=== PATIENT | female | born 1960 | race Caucasian/White ===

== ENCOUNTER 2017-01-02 12:25 | Emergency (ER) | payer MEDICARE, MEDICAID ==
[~2017-01-02] VITALS: Ht 160 cm; Wt 75.6 kg
[~2017-01-02 12:25] MED LIST: OXYC10TA6 PO; TIZA2CAP PO; [UNRECOGNIZED DRUG - REMARK]
[2017-01-02] MEDS ORDERED: SODIUM CHLORIDE 0.9% 1,000 ML IV ONE (13:32)
[2017-01-02] MEDS ORDERED: PANTOPRAZOLE 40 MG IV IVPush ONE (14:00)
[2017-01-02] MEDS ORDERED: SODIUM CHLORIDE 0.9% 1,000ML IVBOLUS ONE (14:00)
[2017-01-02] MEDS ORDERED: HYDROmorphone 1 MG/ML, 1ML IVPush PRN (14:00)
[2017-01-02] MEDS ORDERED: ONDANSETRON 2MG/ML, 2ML IVPush ONE (14:00)
[2017-01-02] MEDS ORDERED: SODIUM CHLORIDE FLUSH 10ML SYR IVF ONE (14:00)
[2017-01-02 14:40] LABS: ASPARTATE AMINO TRANSFERASE 19 U/L (15-37); BLOOD UREA NITROGEN 18 mg/dL (7-18)
[2017-01-02] MEDS ORDERED: PANTOPRAZOLE 40 MG IV ONE (14:48)
[2017-01-02] MEDS ORDERED: HYDROmorphone 1 MG/ML, 1ML ONE (14:48)
[2017-01-02] MEDS ORDERED: ONDANSETRON 2MG/ML, 2ML ONE (14:49)
[2017-01-02 15:35] LABS: IS PT STATUS REG ER OR PRE ER? YES
[2017-01-02] MEDS ORDERED: MORPHINE SULFATE 4 MG/ML, 1ML IVPush ONE (16:00)
[2017-01-02] MEDS ORDERED: MORPHINE SULFATE 4 MG/ML, 1ML ONE (16:31)
[2017-01-02] MEDS ORDERED: ASPIRIN 81 MG TABLET CHEW ONE (16:31)
[2017-01-02 17:38] VITALS: BP 116/58
== END 2017-01-02 17:41 | disposition home or self-care (01) ==
LOC: ED 16:22
DX: M47.896 Other spondylosis, lumbar region (principal); M47.894 Other spondylosis, thoracic region; R11.2 Nausea with vomiting, unspecified; R10.84 Generalized abdominal pain; I10 Essential (primary) hypertension; K21.9 Gastro-esophageal reflux disease without esophagitis; Z88.0 Allergy status to penicillin; Z88.6 Allergy status to analgesic agent; Z98.51 Tubal ligation status
CPT/HCPCS: 36415; 72072; 72110; 74020; 80053; 81003; 84484; 85025; 85610; 93005; 96374; 96375; 99285; C9113; J1170; J2405; J7030

== ENCOUNTER 2017-02-26 16:06 | Inpatient (IN) | payer MEDICARE, MEDICAID ==
[~2017-02-26] VITALS: Ht 160 cm; Wt 77.8 kg
[2017-02-26] MEDS ORDERED: SODIUM CHLORIDE 0.9% 1,000ML IVBOLUS ONE (16:30)
[2017-02-26] MEDS ORDERED: ONDANSETRON 2MG/ML, 2ML IVPush ONE (16:30)
[2017-02-26] MEDS ORDERED: ONDANSETRON 2MG/ML, 2ML ONE (16:56)
[2017-02-26] MEDS ORDERED: MORPHINE SULFATE 4 MG/ML, 1ML ONE ×2 (16:56→18:15)
[2017-02-26 17:02] LABS: ASPARTATE AMINO TRANSFERASE 15 U/L (15-37); BLOOD UREA NITROGEN 9 mg/dL (7-18)
[2017-02-26] MEDS: MORPHINE SULFATE 4 MG/ML, 1ML IVPush PRN ×2 (17:02→18:18)
[2017-02-26] MEDS ORDERED: OMNIPAQUE 350 MG/ML, 100ML BOTTLE ONE (18:16)
[2017-02-26] MEDS ORDERED: LABETALOL 5MG/ML, 20ML IVPush STA (19:13)
[2017-02-26] MEDS ORDERED: LABETALOL 5MG/ML, 20ML ONE (19:22)
[2017-02-26 19:41] LABS: IS PT STATUS REG ER OR PRE ER? YES
[2017-02-26] MEDS ORDERED: SODIUM CHLORIDE 0.9% 1,000 ML IV ONE (20:02)
[2017-02-26] MEDS ORDERED: ONDANSETRON 2MG/ML, 2ML IVPush PRN (20:30)
[2017-02-26] MEDS ORDERED: MORPHINE SULFATE 4 MG/ML, 1ML IVPush PRN (20:30)
[2017-02-26] MEDS ORDERED: DILTIAZEM 125 MG in SODIUM CHLORIDE 0.9% 100 ML IV PRN (20:30)
[2017-02-26] MEDS ORDERED: ACETAMINOPHEN 325 MG TABLET PO PRN (21:00)
[2017-02-26] MEDS ORDERED: NITROGLYCERIN 0.4 MG/SPRAY SL PRN (21:00)
[2017-02-26] MEDS ORDERED: NITROGLYCERIN 0.4 MG BOTTLE (25 TABS) SL PRN (21:00)
[2017-02-26] MEDS ORDERED: PROMETHAZINE 25 MG/ML, 1ML IM PRN (21:00)
[2017-02-26 21:33] LABS: IS PT STATUS REG ER OR PRE ER? YES
[2017-02-26 22:27] VITALS: BP 144/99
[2017-02-26 23:58] LABS: DAU SCREEN DISCLAIMER
[2017-02-27 03:05] VITALS: BP 107/66
[2017-02-27] MEDS: ENOXAPARIN 80 MG/0.8 ML SQ SCH ×2 (03:13→14:50)
[2017-02-27 05:03] LABS: ASPARTATE AMINO TRANSFERASE 12 U/L (15-37); BLOOD UREA NITROGEN 7 mg/dL (7-18)
[2017-02-27 05:09] LABS: IS PT STATUS REG ER OR PRE ER? NO
[2017-02-27 08:10] VITALS: BP 128/83
[2017-02-27] MEDS ORDERED: LORazepam 2 MG/ML, 1ML IVPush ONE (08:30)
[2017-02-27] MEDS ORDERED: POTASSIUM CHLORIDE 20 MEQ TAB.ER.PRT PO ONE (08:30)
[2017-02-27] MEDS ORDERED: REGADENOSON 0.4 MG/5 ML SYRINGE ONE (08:33)
[2017-02-27] MEDS: DILTIAZEM 30 MG TABLET PO SCH ×3 (12:09→21:08)
[2017-02-27 14:59] VITALS: BP 121/77
[2017-02-27] MEDS: ONDANSETRON 2MG/ML, 2ML IVPush PRN (16:43)
[2017-02-27] MEDS: MAALOX/HYOSCYAMINE/LIDOCAINE 45 ML BOTTLE PO PRN ×2 (17:31→21:58)
[2017-02-27] MEDS: MORPHINE SULFATE 4 MG/ML, 1ML IVPush PRN ×2 (17:31→21:08)
[2017-02-27 18:40] VITALS: BP 107/67
[2017-02-28 00:46] VITALS: BP 111/68
[2017-02-28] MEDS: ENOXAPARIN 80 MG/0.8 ML SQ SCH (02:30)
[2017-02-28] MEDS: ONDANSETRON 2MG/ML, 2ML IVPush PRN ×2 (03:58→16:59)
[2017-02-28] MEDS: MORPHINE SULFATE 4 MG/ML, 1ML IVPush PRN ×4 (03:58→16:59)
[2017-02-28 05:49] LABS: BLOOD UREA NITROGEN 6 mg/dL (7-18)
[2017-02-28] MEDS: DILTIAZEM 30 MG TABLET PO SCH (06:25)
[2017-02-28 06:40] VITALS: BP 116/73
[2017-02-28] MEDS ORDERED: ENOXAPARIN 40 MG/0.4 ML SQ SCH (11:30)
[2017-02-28] MEDS: ASPIRIN 81 MG TABLET EC PO SCH (11:59)
[2017-02-28] MEDS: SUCRALFATE 1 GM/10 ML UDC PO SCH ×3 (11:59→20:11)
[2017-02-28] MEDS ORDERED: TRAZ50TA18 PO (12:33)
[2017-02-28] MEDS ORDERED: DULO30CA43 PO (12:33)
[2017-02-28] MEDS ORDERED: OMEP20TA2 PO (12:33)
[2017-02-28] MEDS ORDERED: TIZA4TAB PO (12:33)
[2017-02-28] MEDS ORDERED: TRAM50TA2 PO (12:33)
[2017-02-28] MEDS ORDERED: GABA-826 PO (12:33)
[2017-02-28] MEDS ORDERED: RANI150C BC (12:33)
[2017-02-28 13:20] VITALS: BP 129/70
[2017-02-28 20:57] VITALS: BP 116/72
[2017-03-01 01:57] VITALS: BP 117/73
[2017-03-01] MEDS: MORPHINE SULFATE 4 MG/ML, 1ML IVPush PRN ×2 (02:15→08:44)
[2017-03-01] MEDS: ASPIRIN 81 MG TABLET EC PO SCH (06:00)
[2017-03-01] MEDS: SUCRALFATE 1 GM/10 ML UDC PO SCH (08:43)
[2017-03-01 08:44] VITALS: BP 137/77
[2017-03-01] MEDS ORDERED: DILTIAZEM 120 MG CAP.ER.24H PO SCH (09:00)
[2017-03-01] MEDS ORDERED: SUCR1ORA2 PO (09:22)
[2017-03-01] MEDS ORDERED: ASPI-621 PO (09:22)
[2017-03-01] MEDS ORDERED: DILT120C9 PO (09:22)
== END 2017-03-01 11:30 | disposition home or self-care (01) | DRG 281 ==
LOC: ED 19:19 → EDIP 20:02 → SUATTDRO 20:13 → 5SO 21:48 → DCLOUNGE 03-01 10:58
PROVIDERS: ADMIT Internal Medicine; ATTEND Internal Medicine
DX: I48.0 Paroxysmal atrial fibrillation (principal); I21.4 Non-ST elevation (NSTEMI) myocardial infarction; D68.69 Other thrombophilia; K21.9 Gastro-esophageal reflux disease without esophagitis; I10 Essential (primary) hypertension; F32.9 Major depressive disorder, single episode, unspecified; G89.29 Other chronic pain; M25.519 Pain in unspecified shoulder; M54.9 Dorsalgia, unspecified; I25.10 Atherosclerotic heart disease of native coronary artery without angina pectoris; F07.81 Postconcussional syndrome; H00.016 Hordeolum externum left eye, unspecified eyelid; M19.90 Unspecified osteoarthritis, unspecified site; E87.6 Hypokalemia; F19.90 Other psychoactive substance use, unspecified, uncomplicated; W18.39XA Other fall on same level, initial encounter; Y93.89 Activity, other specified; Z87.11 Personal history of peptic ulcer disease; Z98.51 Tubal ligation status; Z88.0 Allergy status to penicillin; Z88.5 Allergy status to narcotic agent; Y92.89 Other specified places as the place of occurrence of the external cause; Y99.8 Other external cause status
CPT/HCPCS: 36415; 70450; 72125; 74177; 78452; 80048; 80053; 80061; 80307; 81003; 83690; 83735; 84436; 84443; 84484; 85014; 85018; 85025; 93005; 93017; 93306; 96361; 96374; 96375; 96376; J1650; J2405; J2785; Q9967; A9502; C9898; J2060; J7030

== ENCOUNTER 2017-03-08 14:40 | Inpatient (IN) | payer MEDICARE, MEDICAID ==
[2017-03-08] VITALS: BP 157/80
[~2017-03-08] VITALS: Ht 160 cm; Wt 76.1 kg
[~2017-03-08 14:40] MED LIST changes: +ASPI-621 PO; +DILT120C9 PO; +DULO30CA43 PO; +GABA-826 PO; +OMEP20TA2 PO; +RANI150C BC; +SUCR1ORA2 PO; +TIZA4TAB PO; +TRAM50TA2 PO; +TRAZ50TA18 PO
[2017-03-08] MEDS ORDERED: SODIUM CHLORIDE FLUSH 10ML SYR IVF ONE (15:00)
[2017-03-08] MEDS ORDERED: SODIUM CHLORIDE 0.9% 1,000ML IVBOLUS ONE (15:00)
[2017-03-08] MEDS ORDERED: FAMOTIDINE 20 MG/2 ML IVP ONE (15:00)
[2017-03-08] MEDS ORDERED: ONDANSETRON 2MG/ML, 2ML IVPush ONE (15:00)
[2017-03-08] MEDS ORDERED: PLEASE ENTER HEIGHT AND WEIGHT MC SCH (15:00)
[2017-03-08 15:27] LABS: BLOOD UREA NITROGEN 10 mg/dL (7-18)
[2017-03-08 15:28] LABS: ASPARTATE AMINO TRANSFERASE 14 U/L (15-37)
[2017-03-08 15:32] LABS: IS PT STATUS REG ER OR PRE ER? YES
[2017-03-08] MEDS ORDERED: FAMOTIDINE 20 MG/2 ML ONE (15:40)
[2017-03-08] MEDS ORDERED: ONDANSETRON 2MG/ML, 2ML ONE (15:40)
[2017-03-08] MEDS ORDERED: morphine SULFATE 10 MG/ML, 1ML IVPush ONE (16:00)
[2017-03-08] MEDS ORDERED: MORPHINE SULFATE 4 MG/ML, 1ML ONE (16:01)
[2017-03-08] MEDS ORDERED: ACETAMINOPHEN 325 MG TABLET PO PRN (18:00)
[2017-03-08] MEDS ORDERED: HYDROmorphone 2 MG/ML, 1ML ONE (18:07)
[2017-03-08] MEDS: HYDROmorphone 2 MG/ML, 1ML IVPush PRN ×2 (18:11→21:06)
[2017-03-08 20:15] VITALS: BP 137/80
[2017-03-08] MEDS: SODIUM CHLORIDE 0.9% 1,000 ML IV SCH (21:04)
[2017-03-09] MEDS: HYDROmorphone 2 MG/ML, 1ML IVPush PRN ×6 (00:07→21:07)
[2017-03-09 01:39] VITALS: BP 129/70
[2017-03-09 05:52] LABS: BLOOD UREA NITROGEN 9 mg/dL (7-18)
[2017-03-09 05:55] LABS: ASPARTATE AMINO TRANSFERASE 13 U/L (15-37)
[2017-03-09 07:09] VITALS: BP 144/77
[2017-03-09] MEDS: SODIUM CHLORIDE 0.9% 1,000 ML IV SCH (09:00)
[2017-03-09] MEDS: BISACODYL 10 MG SUPP PR SCH (12:16)
[2017-03-09 12:35] VITALS: BP 159/84
[2017-03-09] MEDS: POTASSIUM CHLORIDE 20 MEQ in LACTATED RINGERS 1,000 ML IV SCH ×2 (13:53→21:08)
[2017-03-09] MEDS: HEPARIN 5,000 UNITS/ML, 1ML SQ SCH (19:12)
[2017-03-09 20:06] VITALS: BP 157/80
[2017-03-10] MEDS: HEPARIN 5,000 UNITS/ML, 1ML SQ SCH ×2 (03:42→12:00)
[2017-03-10] MEDS: ONDANSETRON 2MG/ML, 2ML IVPush PRN ×2 (03:42→13:14)
[2017-03-10 03:47] VITALS: BP 143/72
[2017-03-10] MEDS: POTASSIUM CHLORIDE 20 MEQ in LACTATED RINGERS 1,000 ML IV SCH (07:18)
[2017-03-10 07:19] VITALS: BP 158/78
[2017-03-10] MEDS ORDERED: GABAPENTIN 300 MG CAPSULE PO SCH (09:00)
[2017-03-10] MEDS ORDERED: DULOXETINE 30 MG CAPSULE.DR PO SCH (09:00)
[2017-03-10] MEDS ORDERED: DILTIAZEM 120 MG CAP.ER.24H PO SCH (09:00)
[2017-03-10] MEDS: BISACODYL 10 MG SUPP PR SCH (09:00)
[2017-03-10] MEDS: TIZANIDINE 4MG TABLET PO SCH ×2 (10:17→15:47)
[2017-03-10] MEDS ORDERED: SUCRALFATE 1 GM/10 ML UDC PO SCH (11:00)
[2017-03-10 13:24] VITALS: BP 134/79
[2017-03-10] MEDS ORDERED: ONDA4TAB10 PO (15:03)
[2017-03-10] MEDS ORDERED: TRAZODONE 50MG TABLET PO SCH (21:00)
[2017-03-11] MEDS ORDERED: ASPIRIN 81 MG TABLET EC PO SCH (06:00)
== END 2017-03-10 16:50 | disposition home or self-care (01) | DRG 439 ==
LOC: MERGE 14:40 → ED 17:21 → EDIP 17:53 → 3NE 18:57
PROVIDERS: ADMIT Internal Medicine; ATTEND Internal Medicine
DX: K85.90 Acute pancreatitis without necrosis or infection, unspecified (principal); E44.1 Mild protein-calorie malnutrition; I10 Essential (primary) hypertension; G89.29 Other chronic pain; M54.9 Dorsalgia, unspecified; I48.91 Unspecified atrial fibrillation; K21.9 Gastro-esophageal reflux disease without esophagitis; F32.9 Major depressive disorder, single episode, unspecified; K59.00 Constipation, unspecified; Z76.5 Malingerer [conscious simulation]; Z87.11 Personal history of peptic ulcer disease; Z90.49 Acquired absence of other specified parts of digestive tract; Z98.51 Tubal ligation status; Z79.82 Long term (current) use of aspirin; Z79.899 Other long term (current) drug therapy; Z80.0 Family history of malignant neoplasm of digestive organs; Z88.5 Allergy status to narcotic agent; Z88.8 Allergy status to other drugs, medicaments and biological substances
CPT/HCPCS: 36415; 74022; 74176; 76700; 76830; 80053; 80061; 81003; 83690; 84484; 85025; 96361; 96374; 96375; J1170; J1644; J2405; J3480; J2270; J7030; J7120; S0028

== ENCOUNTER 2017-04-17 10:58 | Emergency (ER) | payer MEDICARE, MEDICAID ==
[~2017-04-17] VITALS: Ht 160 cm; Wt 74.0 kg
[~2017-04-17 10:58] MED LIST changes: +NORT25CA PO; -OMEP20TA2 PO; +OMEP20TA9 PO; +ONDA4TAB10 PO; -SUCR1ORA2 PO; +SUCR1ORA5 PO
[2017-04-17 11:27] LABS: HEMATOCRIT 37.4 % (34.6-47.8); HEMOGLOBIN 12.6 g/dL (11.7-16.4); WHITE BLOOD COUNT 4.6 x10^3/uL (3.4-10)
[2017-04-17] MEDS ORDERED: DIPHENHYDRAMINE 50 MG/ML, 1ML IVPush ONE (11:30)
[2017-04-17] MEDS ORDERED: METOCLOPRAMIDE 5 MG/ML, 2ML IVPush ONE (11:30)
[2017-04-17] MEDS ORDERED: PANTOPRAZOLE 40 MG IV IVPush ONE (11:30)
[2017-04-17] MEDS ORDERED: SODIUM CHLORIDE FLUSH 10ML SYR IVF ONE (11:30)
[2017-04-17 11:39] LABS: ASPARTATE AMINO TRANSFERASE 11 U/L (15-37); BLOOD UREA NITROGEN 9 mg/dL (7-18)
[2017-04-17] MEDS ORDERED: DIPHENHYDRAMINE 50 MG/ML, 1ML ONE (12:30)
[2017-04-17] MEDS ORDERED: PANTOPRAZOLE 40 MG IV ONE (12:30)
[2017-04-17 12:55] VITALS: BP 167/89
[2017-04-17] MEDS ORDERED: ONDANSETRON 2MG/ML, 2ML IVPush ONE (13:30)
[2017-04-17] MEDS ORDERED: morphine SULFATE 10 MG/ML, 1ML IVPush ONE (13:30)
[2017-04-17] MEDS ORDERED: MORPHINE SULFATE 4 MG/ML, 1ML ONE (13:37)
[2017-04-17] MEDS ORDERED: ONDANSETRON 2MG/ML, 2ML ONE (13:37)
== END 2017-04-17 14:36 | disposition home or self-care (01) ==
LOC: ED 13:36
DX: R11.2 Nausea with vomiting, unspecified (principal); I10 Essential (primary) hypertension; K21.9 Gastro-esophageal reflux disease without esophagitis
CPT/HCPCS: 36415; 70450; 72125; 80053; 83690; 85025; 93005; 96374; 96375; 99285; C9113; J1200; J2270; J2405

== ENCOUNTER 2017-04-23 18:43 | Emergency (ER) | payer MEDICARE, MEDICAID ==
[~2017-04-23] VITALS: Ht 160 cm; Wt 74.2 kg
[2017-04-23 19:39] LABS: HEMATOCRIT 37.4 % (34.6-47.8); HEMOGLOBIN 12.5 g/dL (11.7-16.4); WHITE BLOOD COUNT 5.7 x10^3/uL (3.4-10)
[2017-04-23 19:50] LABS: BLOOD UREA NITROGEN 8 mg/dL (7-18)
[2017-04-23 19:56] LABS: IS PT STATUS REG ER OR PRE ER? YES
[2017-04-23] MEDS ORDERED: OXYcodone/APAP 10/325MG TABLET PO ONE (21:00)
[2017-04-23] MEDS ORDERED: OXYcodone/APAP 10/325MG TABLET ONE (21:23)
[2017-04-23] MEDS ORDERED: ONDANSETRON ODT 4 MG ONE (21:47)
[2017-04-23 21:49] VITALS: BP 146/80
[2017-04-23] MEDS ORDERED: ONDANSETRON ODT 4 MG PO ONE (22:00)
== END 2017-04-23 22:05 | disposition home or self-care (01) ==
LOC: ED 21:59
DX: S16.1XXA Strain of muscle, fascia and tendon at neck level, initial encounter (principal); K21.9 Gastro-esophageal reflux disease without esophagitis; I10 Essential (primary) hypertension; Z98.51 Tubal ligation status; W18.30XA Fall on same level, unspecified, initial encounter; Y93.89 Activity, other specified; Y92.009 Unspecified place in unspecified non-institutional (private) residence as the place of occurrence of the external cause; Y99.9 Unspecified external cause status
CPT/HCPCS: 36415; 70450; 71010; 72110; 72125; 80048; 82040; 84484; 85025; 93005; 99285; Q0162

== ENCOUNTER 2017-05-07 18:34 | Emergency (ER) | payer MEDICARE, MEDICAID ==
[~2017-05-07] VITALS: Ht 160 cm; Wt 77.5 kg
[2017-05-07] MEDS ORDERED: ONDANSETRON 2MG/ML, 2ML IVPush ONE (19:00)
[2017-05-07] MEDS ORDERED: SODIUM CHLORIDE FLUSH 10ML SYR IVF ONE (19:00)
[2017-05-07] MEDS ORDERED: MORPHINE SULFATE 4 MG/ML, 1ML ONE ×2 (19:18→20:18)
[2017-05-07] MEDS ORDERED: ONDANSETRON 2MG/ML, 2ML ONE (19:18)
[2017-05-07] MEDS: MORPHINE SULFATE 4 MG/ML, 1ML IVPush PRN ×2 (19:25→20:19)
[2017-05-07 19:27] LABS: HEMATOCRIT 35.8 % (34.6-47.8); HEMOGLOBIN 12.2 g/dL (11.7-16.4); WHITE BLOOD COUNT 6.2 x10^3/uL (3.4-10)
[2017-05-07 19:37] LABS: BLOOD UREA NITROGEN 12 mg/dL (7-18)
[2017-05-07 19:45] LABS: IS PT STATUS REG ER OR PRE ER? YES
[2017-05-07 19:45] LABS: PATH.CAST-FLAG NOT PRESENT; SPERM-FLAG NOT PRESENT; SRC-FLAG NOT PRESENT; XTAL-FLAG NOT PRESENT; YLC-FLAG NOT PRESENT
[2017-05-07 21:29] VITALS: BP 138/66
== END 2017-05-07 21:32 | disposition home or self-care (01) ==
LOC: ED 21:26
DX: S39.012A Strain of muscle, fascia and tendon of lower back, initial encounter (principal); S09.90XA Unspecified injury of head, initial encounter; R07.89 Other chest pain; G89.29 Other chronic pain; M25.561 Pain in right knee; M25.571 Pain in right ankle and joints of right foot; I48.91 Unspecified atrial fibrillation; I10 Essential (primary) hypertension; K21.9 Gastro-esophageal reflux disease without esophagitis; Z88.0 Allergy status to penicillin; Z88.5 Allergy status to narcotic agent; Z88.8 Allergy status to other drugs, medicaments and biological substances; W01.0XXA Fall on same level from slipping, tripping and stumbling without subsequent striking against object, initial encounter; Y93.89 Activity, other specified; Y92.098 Other place in other non-institutional residence as the place of occurrence of the external cause; Y99.8 Other external cause status
CPT/HCPCS: 36415; 70450; 71010; 72110; 72125; 73564; 73610; 80048; 81001; 82040; 84484; 85025; 85610; 87086; 93005; 96374; 96375; 96376; 99285; J2405

== ENCOUNTER 2017-05-14 11:20 | Emergency (ER) | payer MEDICARE, MEDICAID ==
[~2017-05-14] VITALS: Ht 160 cm; Wt 69.0 kg
[2017-05-14] MEDS ORDERED: SODIUM CHLORIDE FLUSH 10ML SYR IVF ONE (11:30)
[2017-05-14] MEDS ORDERED: SODIUM CHLORIDE 0.9% 1,000ML IVBOLUS ONE (11:30)
[2017-05-14] MEDS ORDERED: ONDANSETRON 2MG/ML, 2ML IVPush ONE (11:30)
[2017-05-14] MEDS ORDERED: KETOROLAC 30 MG/1 ML IVPush ONE (11:30)
[2017-05-14] MEDS ORDERED: ONDANSETRON 2MG/ML, 2ML ONE (11:41)
[2017-05-14] MEDS ORDERED: KETOROLAC 30 MG/1 ML ONE (11:41)
[2017-05-14 11:58] LABS: HEMATOCRIT 38.1 % (34.6-47.8); HEMOGLOBIN 12.8 g/dL (11.7-16.4); WHITE BLOOD COUNT 4.9 x10^3/uL (3.4-10)
[2017-05-14 12:06] LABS: PATH.CAST-FLAG NOT PRESENT; SPERM-FLAG NOT PRESENT; SRC-FLAG NOT PRESENT; XTAL-FLAG NOT PRESENT; YLC-FLAG NOT PRESENT
[2017-05-14 12:08] LABS: BLOOD UREA NITROGEN 12 mg/dL (7-18)
[2017-05-14 12:13] LABS: ASPARTATE AMINO TRANSFERASE 12 U/L (15-37)
[2017-05-14] MEDS ORDERED: OMNIPAQUE 350 MG/ML, 100ML BOTTLE ONE (13:20)
[2017-05-14 13:34] VITALS: BP 140/71
== END 2017-05-14 14:14 | disposition home or self-care (01) ==
LOC: ED 11:26
DX: R10.84 Generalized abdominal pain (principal); R11.2 Nausea with vomiting, unspecified; I10 Essential (primary) hypertension; K21.9 Gastro-esophageal reflux disease without esophagitis; Z88.0 Allergy status to penicillin; Z88.5 Allergy status to narcotic agent; Z88.6 Allergy status to analgesic agent; Z98.51 Tubal ligation status
CPT/HCPCS: 36415; 74177; 80053; 81001; 83690; 85025; 87086; 96361; 96374; 96375; 99285; J1885; J2405; J7030; Q9967

== ENCOUNTER 2017-11-28 16:21 | Emergency (ER) | payer MEDICARE, MEDICAID ==
[~2017-11-28] VITALS: Ht 160 cm; Wt 75.1 kg
[~2017-11-28 16:21] MED LIST changes: +ASPI-515 PO; +CEFD300C37 PO; +METR500T PO
[2017-11-28 16:59] LABS: BASOPHILS # (AUTO) 0.03 x10^3/uL (0-0.1); BASOPHILS % (AUTO) 0 % (0-1); EOSINOPHILS # (AUTO) 0.07 x10^3/uL (0-0.4); EOSINOPHILS % (AUTO) 1 % (1-7); LYMPHOCYTES # (AUTO) 1.71 x10^3/uL (1-3.4); LYMPHOCYTES % (AUTO) 22 % (22-44); MD NO; MEAN CORPUSCULAR HGB CONC 34.3 g/dL (32.4-35.8); MEAN CORPUSCULAR VOLUME 90.4 fL (80-100); MEAN PLATELET VOLUME 8.1 fL (7.4-10.4); MONOCYTES # (AUTO) 0.47 x10^3/uL (0.2-0.8); MONOCYTES % (AUTO) 6 % (2-9); NEUTROPHILS # (AUTO) 5.65 x10^3/uL (1.8-6.8); NEUTROPHILS % (AUTO) 71 % (42-75); PLATELET COUNT 314 x10^3/uL (130-400); RED CELL DISTRIBUTION WIDTH 13.3 % (9.6-15.2)
[2017-11-28] MEDS ORDERED: SODIUM CHLORIDE FLUSH 10ML SYR IVF ONE (17:00)
[2017-11-28] MEDS ORDERED: PROMETHAZINE 25 MG/ML, 1ML IM ONE (17:00)
[2017-11-28] MEDS ORDERED: SODIUM CHLORIDE 0.9% 1,000ML IVBOLUS ONE (17:00)
[2017-11-28 17:08] LABS: ALANINE AMINOTRANSFERASE 19 U/L (12-78); ALBUMIN 4.2 g/dL (3.4-5.0); ANION GAP 9 mmol/L (5-15); CALCIUM 8.8 mg/dL (8.5-10.1); CHLORIDE 109 mmol/L (98-107); CREATININE 0.75 mg/dL (0.55-1.02)
[2017-11-28 17:10] LABS: ALKALINE PHOSPHATASE 51 U/L (45-117); BILIRUBIN,TOTAL 0.8 mg/dL (0.2-1.0); TOTAL PROTEIN 7.7 g/dL (6.4-8.2)
[2017-11-28] MEDS ORDERED: PROMETHAZINE 25 MG/ML, 1ML ONE (17:35)
[2017-11-28] MEDS ORDERED: MORPHINE SULFATE 4 MG/ML, 1ML ONE ×2 (17:59→19:53)
[2017-11-28] MEDS ORDERED: MORPHINE SULFATE 4 MG/ML, 1ML IVPush PRN (18:00)
[2017-11-28 18:28] LABS: MICROSCOPIC NOT IND
[2017-11-28 18:30] LABS: CULTURE INDICATED? NO
[2017-11-28] MEDS ORDERED: OMNIPAQUE 350 MG/ML, 100ML BOTTLE ONE (18:46)
[2017-11-28 20:43] VITALS: BP 119/69
== END 2017-11-28 20:46 | disposition home or self-care (01) ==
LOC: ED 19:07
DX: K59.00 Constipation, unspecified (principal); K92.1 Melena; R11.2 Nausea with vomiting, unspecified; I48.91 Unspecified atrial fibrillation; K21.9 Gastro-esophageal reflux disease without esophagitis; I10 Essential (primary) hypertension; Z88.0 Allergy status to penicillin
CPT/HCPCS: 36415; 74177; 80053; 81003; 83690; 85025; 96361; 96372; 96374; 99285; J2550; J7030; Q9967

== ENCOUNTER 2018-01-07 10:30 | Inpatient (IN) | payer MEDICARE, MEDICAID ==
[~2018-01-07] VITALS: Ht 160 cm; Wt 78.0 kg
[~2018-01-07 10:30] MED LIST changes: +APIX5TAB PO; +DIGO125T PO; +METO25TA35 PO; +PANT20TA3 PO; +SUCR1TAB PO; +TIZA4CAP PO
[2018-01-07] MEDS ORDERED: PANTOPRAZOLE 40 MG IV IVPush ONE (11:30)
[2018-01-07] MEDS ORDERED: SODIUM CHLORIDE FLUSH 10ML SYR IVF ONE (11:30)
[2018-01-07] MEDS ORDERED: PANTOPRAZOLE 40 MG IV ONE (11:31)
[2018-01-07] MEDS ORDERED: D5%-0.45% NACL 1,000 ML IV SCH (11:39)
[2018-01-07 11:42] LABS: BASOPHILS # (AUTO) 0.03 x10^3/uL (0-0.1); BASOPHILS % (AUTO) 1 % (0-1); EOSINOPHILS % (AUTO) 2 % (1-7); LYMPHOCYTES # (AUTO) 1.64 x10^3/uL (1-3.4); LYMPHOCYTES % (AUTO) 25 % (22-44); MD NO; MEAN CORPUSCULAR HEMOGLOBIN 31.3 pg (27.0-34.8); MEAN CORPUSCULAR HGB CONC 34.2 g/dL (32.4-35.8); MEAN CORPUSCULAR VOLUME 91.5 fL (80-100); MEAN PLATELET VOLUME 8.6 fL (7.4-10.4); MONOCYTES # (AUTO) 0.37 x10^3/uL (0.2-0.8); MONOCYTES % (AUTO) 6 % (2-9); NEUTROPHILS # (AUTO) 4.36 x10^3/uL (1.8-6.8); NEUTROPHILS % (AUTO) 67 % (42-75); PLATELET COUNT 278 x10^3/uL (130-400); RED BLOOD COUNT 4.36 x10^6/uL (3.82-5.3); RED CELL DISTRIBUTION WIDTH 14.1 % (9.6-15.2)
[2018-01-07 11:49] LABS: INTERNATIONAL NORMALIZED RATIO 1.06 (0.93-1.1)
[2018-01-07 11:52] LABS: ALANINE AMINOTRANSFERASE 18 U/L (12-78); ALBUMIN 3.8 g/dL (3.4-5.0); ANION GAP 6 mmol/L (5-15); CALCIUM 8.3 mg/dL (8.5-10.1); CHLORIDE 108 mmol/L (98-107)
[2018-01-07 11:54] LABS: ALKALINE PHOSPHATASE 56 U/L (45-117); BILIRUBIN,TOTAL 0.7 mg/dL (0.2-1.0); TOTAL PROTEIN 7.1 g/dL (6.4-8.2)
[2018-01-07] MEDS ORDERED: ONDANSETRON ODT 4 MG PO PRN (12:00)
[2018-01-07] MEDS ORDERED: ENOXAPARIN 40 MG/0.4 ML SQ SCH (12:00)
[2018-01-07] MEDS ORDERED: DICYCLOMINE 10 MG/ML, 2ML ONE (12:16)
[2018-01-07] MEDS ORDERED: ONDANSETRON ODT 4 MG ONE (12:16)
[2018-01-07 12:24] LABS: CULTURE INDICATED? NO; MICROSCOPIC NOT IND
[2018-01-07] MEDS ORDERED: DICYCLOMINE 10 MG/ML, 2ML IM ONE (12:30)
[2018-01-07] MEDS ORDERED: ONDANSETRON ODT 4 MG PO ONE (12:30)
[2018-01-07] MEDS ORDERED: OMNIPAQUE 350 MG/ML, 100ML BOTTLE ONE (13:23)
[2018-01-07] MEDS ORDERED: morphine SULFATE 10 MG/ML, 1ML IVPush ONE (14:00)
[2018-01-07] MEDS ORDERED: METRONIDAZOLE PMX 500MG/100ML 100 ML IV ONE (14:00)
[2018-01-07] MEDS ORDERED: MORPHINE SULFATE 4 MG/ML, 1ML ONE (14:06)
[2018-01-07] MEDS ORDERED: METRONIDAZOLE PMX 500MG/100ML 100 ML ONE (14:06)
[2018-01-07] MEDS ORDERED: ACETAMINOPHEN 325 MG TABLET PO PRN (14:30)
[2018-01-07] MEDS ORDERED: ENALAPRILAT 1.25 MG/ML, 2ML IVPush PRN (14:30)
[2018-01-07] MEDS ORDERED: BISACODYL 10 MG SUPP PR PRN (14:30)
[2018-01-07] MEDS ORDERED: POLYETHYLENE GLYCOL 17 GM PACKET PO PRN (14:30)
[2018-01-07] MEDS ORDERED: DOCUSATE 100 MG CAPSULE PO PRN (14:30)
[2018-01-07] MEDS ORDERED: ONDANSETRON 2MG/ML, 2ML IVPush PRN (14:30)
[2018-01-07] MEDS ORDERED: morphine SULFATE 10 MG/ML, 1ML IVPush PRN (14:30)
[2018-01-07] MEDS ORDERED: hydrALAzine 20 MG/ML, 1ML IVPush PRN (14:30)
[2018-01-07] MEDS: SUCRALFATE 1 GM TABLET PO SCH ×2 (18:28→21:30)
[2018-01-07] MEDS: SODIUM CHLORIDE 0.9% 1,000 ML IV SCH (18:29)
[2018-01-07 18:40] VITALS: BP 153/83
[2018-01-07 20:34] VITALS: BP 144/78
[2018-01-07] MEDS: HYDROcodone/APAP 5/325 TABLET PO PRN (21:31)
[2018-01-07] MEDS: TRAZODONE 50MG TABLET PO SCH (21:33)
[2018-01-07] MEDS: PANTOPROZOLE 40MG TABLET PO SCH (21:33)
[2018-01-07] MEDS: METOPROLOL TARTRATE 25 MG TABLET PO SCH (21:34)
[2018-01-08] VITALS (8 sets, daily range): BP systolic 100–136; BP diastolic 58–76
[2018-01-08] MEDS: SUCRALFATE 1 GM TABLET PO SCH ×4 (05:22→21:34)
[2018-01-08] MEDS: HYDROcodone/APAP 5/325 TABLET PO PRN ×3 (05:22→21:35)
[2018-01-08] MEDS: SODIUM CHLORIDE 0.9% 1,000 ML IV SCH ×2 (05:22→21:34)
[2018-01-08 06:36] LABS: BASOPHILS # (AUTO) 0.03 x10^3/uL (0-0.1); BASOPHILS % (AUTO) 1 % (0-1); EOSINOPHILS # (AUTO) 0.17 x10^3/uL (0-0.4); EOSINOPHILS % (AUTO) 4 % (1-7); LYMPHOCYTES # (AUTO) 2.13 x10^3/uL (1-3.4); LYMPHOCYTES % (AUTO) 45 % (22-44); MD NO; MEAN CORPUSCULAR HEMOGLOBIN 31.3 pg (27.0-34.8); MEAN CORPUSCULAR HGB CONC 33.9 g/dL (32.4-35.8); MEAN CORPUSCULAR VOLUME 92.3 fL (80-100); MEAN PLATELET VOLUME 8.6 fL (7.4-10.4); MONOCYTES # (AUTO) 0.34 x10^3/uL (0.2-0.8); MONOCYTES % (AUTO) 7 % (2-9); NEUTROPHILS # (AUTO) 2.02 x10^3/uL (1.8-6.8); NEUTROPHILS % (AUTO) 43 % (42-75); PLATELET COUNT 244 x10^3/uL (130-400); RED BLOOD COUNT 3.93 x10^6/uL (3.82-5.3); RED CELL DISTRIBUTION WIDTH 14.7 % (9.6-15.2)
[2018-01-08 06:46] LABS: ALANINE AMINOTRANSFERASE 19 U/L (12-78); ALBUMIN 3.3 g/dL (3.4-5.0); ANION GAP 9 mmol/L (5-15); CALCIUM 8.1 mg/dL (8.5-10.1); CHLORIDE 109 mmol/L (98-107)
[2018-01-08 06:48] LABS: ALKALINE PHOSPHATASE 47 U/L (45-117); BILIRUBIN,TOTAL 0.7 mg/dL (0.2-1.0); CREATININE 0.71 mg/dL (0.55-1.02); TOTAL PROTEIN 6.1 g/dL (6.4-8.2)
[2018-01-08] MEDS ORDERED: ONDANSETRON ODT 4 MG ONE (07:31)
[2018-01-08] MEDS ORDERED: PROMETHAZINE 25 MG/ML, 1ML ONE (07:52)
[2018-01-08] MEDS: PROMETHAZINE 25 MG/ML, 1ML IM PRN (08:04)
[2018-01-08] MEDS: PANTOPROZOLE 40MG TABLET PO SCH ×2 (09:00→21:35)
[2018-01-08] MEDS: METOPROLOL TARTRATE 25 MG TABLET PO SCH ×2 (09:00→21:34)
[2018-01-08] MEDS ORDERED: DIGOXIN 0.125 MG TABLET PO SCH (09:00)
[2018-01-08] MEDS: metroNIDAZOLE 250 MG TABLET PO SCH (19:27)
[2018-01-08] MEDS: TRAZODONE 50MG TABLET PO SCH (21:35)
[2018-01-08] MEDS: CIPROFLOXACIN 500 MG TABLET PO SCH (21:35)
[2018-01-09] MEDS: metroNIDAZOLE 250 MG TABLET PO SCH ×4 (00:14→20:55)
[2018-01-09] MEDS: HYDROcodone/APAP 5/325 TABLET PO PRN ×4 (00:14→22:36)
[2018-01-09 02:14] VITALS: BP 113/72
[2018-01-09] MEDS: SUCRALFATE 1 GM TABLET PO SCH ×4 (06:54→20:55)
[2018-01-09 08:55] VITALS: BP 132/76
[2018-01-09 09:12] LABS: OCCULT BLOOD NEGATIVE (NEGATIVE)
[2018-01-09 09:59] LABS: CLOSTRIDIUM DIFFICILE ANTIGEN POSITIVE; CLOSTRIDIUM DIFFICILE TOXIN NEGATIVE (Negative)
[2018-01-09] MEDS: CIPROFLOXACIN 500 MG TABLET PO SCH ×2 (10:22→20:54)
[2018-01-09] MEDS: PANTOPROZOLE 40MG TABLET PO SCH ×2 (10:22→20:54)
[2018-01-09] MEDS: SODIUM CHLORIDE 0.9% 1,000 ML IV SCH ×2 (11:42→23:51)
[2018-01-09] MEDS: APIXABAN 5 MG TABLET PO SCH ×2 (11:42→20:55)
[2018-01-09] MEDS: PROMETHAZINE 25 MG/ML, 1ML IM PRN ×2 (11:42→19:30)
[2018-01-09 15:16] VITALS: BP 101/61
[2018-01-09 19:19] VITALS: BP 124/72
[2018-01-09] MEDS: TRAZODONE 50MG TABLET PO SCH (20:55)
[2018-01-09] MEDS: METOPROLOL TARTRATE 25 MG TABLET PO SCH (20:57)
[2018-01-10 01:13] VITALS: BP 100/63
[2018-01-10] MEDS: HYDROcodone/APAP 5/325 TABLET PO PRN ×3 (04:21→12:56)
[2018-01-10] MEDS: SUCRALFATE 1 GM TABLET PO SCH ×2 (05:57→11:20)
[2018-01-10 08:43] VITALS: BP 100/62
[2018-01-10] MEDS: metroNIDAZOLE 250 MG TABLET PO SCH (08:47)
[2018-01-10] MEDS: CIPROFLOXACIN 500 MG TABLET PO SCH (08:47)
[2018-01-10] MEDS: PANTOPROZOLE 40MG TABLET PO SCH (08:47)
[2018-01-10] MEDS: METOPROLOL TARTRATE 25 MG TABLET PO SCH (08:48)
[2018-01-10] MEDS: APIXABAN 5 MG TABLET PO SCH (08:48)
[2018-01-10] MEDS ORDERED: DIGOXIN 0.125 MG TABLET PO SCH (09:00)
[2018-01-10] MEDS ORDERED: PROM25SU34 RC (09:13)
[2018-01-10] MEDS ORDERED: HYDR-3240 PO (09:13)
[2018-01-10] MEDS ORDERED: SUCR1TAB PO (09:13)
[2018-01-10] MEDS ORDERED: CIPR500T87 PO (09:13)
[2018-01-10] MEDS ORDERED: METR250T PO (09:13)
[2018-01-10] MEDS ORDERED: PANT20TA3 PO (09:13)
[2018-01-10] MEDS ORDERED: DOCU-131 PO (09:13)
[2018-01-10] MEDS ORDERED: ONDANSETRON ODT 4 MG ONE (10:20)
[2018-01-10] MEDS ORDERED: PROMETHAZINE 25 MG SUPP PR PRN (10:30)
[2018-01-10 12:02] VITALS: BP 107/67
== END 2018-01-10 13:57 | disposition home or self-care (01) | DRG 372 ==
LOC: ED 11:38 → EDIP 11:39 → ED 12:18 → 4NOR 17:51
PROVIDERS: ADMIT Family Medicine; ATTEND Family Medicine
DX: A04.72 Enterocolitis due to Clostridium difficile, not specified as recurrent (principal); E70.1 Other hyperphenylalaninemias; I48.91 Unspecified atrial fibrillation; M54.9 Dorsalgia, unspecified; G89.29 Other chronic pain; R00.1 Bradycardia, unspecified; F12.90 Cannabis use, unspecified, uncomplicated; I10 Essential (primary) hypertension; E66.9 Obesity, unspecified; Z68.30 Body mass index [BMI] 30.0-30.9, adult; Z80.1 Family history of malignant neoplasm of trachea, bronchus and lung; Z82.49 Family history of ischemic heart disease and other diseases of the circulatory system; Z90.49 Acquired absence of other specified parts of digestive tract; Z98.51 Tubal ligation status
CPT/HCPCS: 36415; 74022; 74177; 80053; 80162; 81003; 82272; 83605; 83690; 85014; 85018; 85025; 85610; 85730; 87324; 87493; 93005; 96372; 96374; 96375; J2405; J2550; Q0162; Q9967; C9113; J0500; J2270; J7030

== ENCOUNTER 2018-01-12 15:20 | Emergency (ER) | payer MEDICARE, MEDICAID ==
[~2018-01-12] VITALS: Ht 160 cm; Wt 77.0 kg
[~2018-01-12 15:20] MED LIST changes: +CIPR500T87 PO; +DOCU-131 PO; +HYDR-3240 PO; +METR250T PO; +PROM25SU34 RC
[2018-01-12] MEDS ORDERED: FAMOTIDINE 20 MG TABLET PO ONE (15:30)
[2018-01-12] MEDS ORDERED: ONDANSETRON ODT 4 MG PO ONE (15:30)
[2018-01-12] MEDS ORDERED: MAALOX/HYOSCYAMINE/LIDOCAINE 45 ML BTL PO ONE (15:30)
[2018-01-12] MEDS ORDERED: ONDANSETRON ODT 4 MG ONE (15:32)
[2018-01-12] MEDS ORDERED: MAALOX/HYOSCYAMINE/LIDOCAINE 45 ML BTL ONE (15:32)
[2018-01-12] MEDS ORDERED: FAMOTIDINE 20 MG TABLET ONE (15:32)
[2018-01-12] MEDS ORDERED: PROMETHAZINE 25 MG/ML, 1ML ONE (15:52)
[2018-01-12] MEDS ORDERED: PROMETHAZINE 25 MG/ML, 1ML IM ONE (16:00)
[2018-01-12 16:22] LABS: ALANINE AMINOTRANSFERASE 21 U/L (12-78); ALBUMIN 3.8 g/dL (3.4-5.0); ANION GAP 9 mmol/L (5-15); CALCIUM 9.1 mg/dL (8.5-10.1); CHLORIDE 110 mmol/L (98-107); CREATININE 0.79 mg/dL (0.55-1.02)
[2018-01-12 16:24] LABS: ALKALINE PHOSPHATASE 56 U/L (45-117); BILIRUBIN,TOTAL 0.3 mg/dL (0.2-1.0)
[2018-01-12 17:14] VITALS: BP 117/64
[2018-01-12 17:14] LABS: ACETONE, SERUM Negative (Negative)
[2018-01-12] MEDS ORDERED: LORazepam 2 MG/ML, 1ML ONE (19:38)
== END 2018-01-12 18:07 | disposition home or self-care (01) ==
LOC: ED 17:30
DX: T52.91XA Toxic effect of unspecified organic solvent, accidental (unintentional), initial encounter (principal); R10.9 Unspecified abdominal pain; I49.9 Cardiac arrhythmia, unspecified; I10 Essential (primary) hypertension; I48.91 Unspecified atrial fibrillation; F32.9 Major depressive disorder, single episode, unspecified; G89.29 Other chronic pain; M54.9 Dorsalgia, unspecified; Z87.891 Personal history of nicotine dependence; Y92.89 Other specified places as the place of occurrence of the external cause
CPT/HCPCS: 36415; 80053; 80307; 82010; 96372; 99284; J2550

== ENCOUNTER 2018-02-01 14:14 | Emergency (ER) | payer MEDICARE, MEDICAID ==
[~2018-02-01] VITALS: Ht 160 cm; Wt 82.4 kg
[2018-02-01] MEDS ORDERED: METOCLOPRAMIDE 5 MG/ML, 2ML IVPush ONE (15:00)
[2018-02-01] MEDS ORDERED: SODIUM CHLORIDE FLUSH 10ML SYR IVF ONE (15:00)
[2018-02-01 15:26] LABS: MEAN CORPUSCULAR HEMOGLOBIN 31.5 pg (27.0-34.8); MEAN CORPUSCULAR VOLUME 92.5 fL (80-100); MEAN PLATELET VOLUME 8.3 fL (7.4-10.4); PLATELET COUNT 289 x10^3/uL (130-400); RED BLOOD COUNT 4.37 x10^6/uL (3.82-5.3); RED CELL DISTRIBUTION WIDTH 14.5 % (9.6-15.2)
[2018-02-01 15:29] LABS: ALANINE AMINOTRANSFERASE 25 U/L (12-78); ANION GAP 6 mmol/L (5-15); CALCIUM 8.7 mg/dL (8.5-10.1); CHLORIDE 110 mmol/L (98-107); CREATININE 0.75 mg/dL (0.55-1.02)
[2018-02-01 15:33] LABS: ALKALINE PHOSPHATASE 56 U/L (45-117); BILIRUBIN,TOTAL 0.6 mg/dL (0.2-1.0); TOTAL PROTEIN 7.5 g/dL (6.4-8.2)
[2018-02-01 15:47] LABS: MD NO
[2018-02-01] MEDS ORDERED: METOCLOPRAMIDE 5 MG/ML, 2ML ONE (18:23)
[2018-02-01] MEDS ORDERED: MORPHINE SULFATE 4 MG/ML, 1ML ONE (18:24)
[2018-02-01 18:30] LABS: MICROSCOPIC NOT IND
[2018-02-01] MEDS ORDERED: morphine SULFATE 10 MG/ML, 1ML IVPush ONE (18:30)
[2018-02-01 18:37] LABS: CULTURE INDICATED? NO
[2018-02-01] MEDS ORDERED: DIPHENHYDRAMINE 50 MG/ML, 1ML ONE (19:26)
[2018-02-01] MEDS ORDERED: PROMETHAZINE 25 MG/ML, 1ML ONE (19:26)
[2018-02-01] MEDS ORDERED: PROMETHAZINE 25 MG/ML, 1ML IM ONE (19:30)
[2018-02-01] MEDS ORDERED: DIPHENHYDRAMINE 50 MG/ML, 1ML IVPush ONE (19:30)
[2018-02-01 20:40] VITALS: BP 106/55
== END 2018-02-01 20:49 | disposition home or self-care (01) ==
LOC: ED 18:53
DX: R10.30 Lower abdominal pain, unspecified (principal); K52.9 Noninfective gastroenteritis and colitis, unspecified; G89.29 Other chronic pain; K21.9 Gastro-esophageal reflux disease without esophagitis; I10 Essential (primary) hypertension; I48.91 Unspecified atrial fibrillation; Z88.0 Allergy status to penicillin
CPT/HCPCS: 36415; 74021; 74176; 80053; 81003; 83690; 84703; 85025; 93005; 96372; 96374; 96375; 99285; J1200; J2270; J2550; J2765

== ENCOUNTER 2018-03-11 10:04 | Emergency (ER) | payer MEDICARE, MEDICAID ==
[~2018-03-11] VITALS: Ht 160 cm; Wt 76.0 kg
[2018-03-11] MEDS ORDERED: KETOROLAC 30 MG/1 ML ONE (11:04)
[2018-03-11] MEDS ORDERED: ONDANSETRON 2MG/ML, 2ML ONE (11:04)
[2018-03-11 11:16] LABS: BASOPHILS # (AUTO) 0.02 x10^3/uL (0-0.1); BASOPHILS % (AUTO) 0 % (0-1); EOSINOPHILS % (AUTO) 1 % (1-7); LYMPHOCYTES # (AUTO) 1.58 x10^3/uL (1-3.4); LYMPHOCYTES % (AUTO) 17 % (22-44); MD NO; MEAN CORPUSCULAR HEMOGLOBIN 31.1 pg (27.0-34.8); MEAN CORPUSCULAR HGB CONC 33.4 g/dL (32.4-35.8); MEAN CORPUSCULAR VOLUME 93.2 fL (80-100); MEAN PLATELET VOLUME 8.6 fL (7.4-10.4); MONOCYTES # (AUTO) 0.38 x10^3/uL (0.2-0.8); MONOCYTES % (AUTO) 4 % (2-9); NEUTROPHILS # (AUTO) 7.41 x10^3/uL (1.8-6.8); NEUTROPHILS % (AUTO) 78 % (42-75); PLATELET COUNT 274 x10^3/uL (130-400); RED BLOOD COUNT 4.44 x10^6/uL (3.82-5.3); RED CELL DISTRIBUTION WIDTH 13.1 % (9.6-15.2)
[2018-03-11 11:25] LABS: ALBUMIN 3.9 g/dL (3.4-5.0); ANION GAP 5 mmol/L (5-15); CALCIUM 8.8 mg/dL (8.5-10.1); CHLORIDE 109 mmol/L (98-107); CREATININE 0.78 mg/dL (0.55-1.02)
[2018-03-11] MEDS ORDERED: ONDANSETRON 2MG/ML, 2ML IVPush ONE (12:00)
[2018-03-11] MEDS ORDERED: KETOROLAC 30 MG/1 ML IVPush ONE (12:00)
[2018-03-11] MEDS ORDERED: SODIUM CHLORIDE FLUSH 10ML SYR IVF ONE (12:00)
[2018-03-11] MEDS ORDERED: SODIUM CHLORIDE 0.9% 1,000ML IV ONE (12:00)
[2018-03-11 12:01] LABS: ALBUMIN 3.8 g/dL (3.4-5.0)
[2018-03-11 12:08] LABS: BILIRUBIN, DIRECT 0.1 mg/dL (0.1-0.2); BILIRUBIN,INDIRECT 0.3 mg/dL (0.0-2.0); BILIRUBIN,TOTAL 0.4 mg/dL (0.2-1.0); TOTAL PROTEIN 7.4 g/dL (6.4-8.2)
[2018-03-11 12:16] LABS: MICROSCOPIC NOT IND
[2018-03-11 12:26] LABS: CULTURE INDICATED? NO
[2018-03-11] MEDS ORDERED: METHOCARBAMOL 1,000 MG in DEXTROSE 5% 100 ML IV ONE (12:30)
[2018-03-11 12:34] VITALS: BP 133/67
== END 2018-03-11 13:03 | disposition home or self-care (01) ==
LOC: ED 12:17
DX: S39.012A Strain of muscle, fascia and tendon of lower back, initial encounter (principal); M51.34 Other intervertebral disc degeneration, thoracic region; I48.91 Unspecified atrial fibrillation; G89.29 Other chronic pain; K21.9 Gastro-esophageal reflux disease without esophagitis; I10 Essential (primary) hypertension; Z87.891 Personal history of nicotine dependence; Z98.51 Tubal ligation status; X58.XXXA Exposure to other specified factors, initial encounter; Y93.89 Activity, other specified; Y92.89 Other specified places as the place of occurrence of the external cause; Y99.8 Other external cause status
CPT/HCPCS: 36415; 74176; 80048; 80076; 81003; 82040; 85025; 96365; 96375; 99285; J1885; J2405; J2800; J7030

== ENCOUNTER 2018-03-19 16:31 | Emergency (ER) | payer MEDICARE, MEDICAID ==
[~2018-03-19] VITALS: Ht 160 cm; Wt 73.0 kg
[~2018-03-19 16:31] MED LIST changes: +TRAZ-136 PO; -TRAZ50TA18 PO
[2018-03-19] MEDS ORDERED: MAALOX/HYOSCYAMINE/LIDOCAINE 45 ML BTL ONE (16:55)
[2018-03-19] MEDS ORDERED: ONDANSETRON 2MG/ML, 2ML ONE (16:55)
[2018-03-19] MEDS ORDERED: FAMOTIDINE 20 MG/2 ML ONE (16:55)
[2018-03-19] MEDS ORDERED: SODIUM CHLORIDE FLUSH 10ML SYR IVF ONE (17:00)
[2018-03-19] MEDS ORDERED: ONDANSETRON ODT 4 MG PO ONE (17:00)
[2018-03-19] MEDS ORDERED: SODIUM CHLORIDE 0.9% 1,000ML IVBOLUS ONE (17:00)
[2018-03-19] MEDS ORDERED: FAMOTIDINE 20 MG/2 ML IVP ONE (17:00)
[2018-03-19] MEDS ORDERED: MAALOX/HYOSCYAMINE/LIDOCAINE 45 ML BTL PO ONE (17:00)
[2018-03-19 17:03] LABS: BASOPHILS # (AUTO) 0.03 x10^3/uL (0-0.1); BASOPHILS % (AUTO) 1 % (0-1); EOSINOPHILS # (AUTO) 0.16 x10^3/uL (0-0.4); EOSINOPHILS % (AUTO) 3 % (1-7); LYMPHOCYTES # (AUTO) 1.75 x10^3/uL (1-3.4); LYMPHOCYTES % (AUTO) 28 % (22-44); MD NO; MEAN CORPUSCULAR HEMOGLOBIN 31.2 pg (27.0-34.8); MEAN CORPUSCULAR HGB CONC 33.9 g/dL (32.4-35.8); MEAN CORPUSCULAR VOLUME 92.3 fL (80-100); MEAN PLATELET VOLUME 8.6 fL (7.4-10.4); MONOCYTES # (AUTO) 0.34 x10^3/uL (0.2-0.8); MONOCYTES % (AUTO) 6 % (2-9); NEUTROPHILS # (AUTO) 3.93 x10^3/uL (1.8-6.8); NEUTROPHILS % (AUTO) 63 % (42-75); PLATELET COUNT 263 x10^3/uL (130-400); RED BLOOD COUNT 3.97 x10^6/uL (3.82-5.3); RED CELL DISTRIBUTION WIDTH 13.5 % (9.6-15.2)
[2018-03-19 17:11] LABS: ALANINE AMINOTRANSFERASE 31 U/L (12-78); ALBUMIN 3.5 g/dL (3.4-5.0); ANION GAP 6 mmol/L (5-15); CALCIUM 8.4 mg/dL (8.5-10.1); CHLORIDE 114 mmol/L (98-107); CREATININE 0.68 mg/dL (0.55-1.02)
[2018-03-19 17:13] LABS: ALKALINE PHOSPHATASE 60 U/L (45-117); BILIRUBIN,TOTAL 0.3 mg/dL (0.2-1.0); TOTAL PROTEIN 6.6 g/dL (6.4-8.2)
[2018-03-19 17:14] LABS: INTERNATIONAL NORMALIZED RATIO 1.01 (0.93-1.1); PROTHROMBIN TIME 10.5 Seconds (9.6-11.5)
[2018-03-19 17:25] VITALS: BP 120/62
== END 2018-03-19 18:24 | disposition home or self-care (01) ==
LOC: ED 17:10
DX: R10.13 Epigastric pain (principal); R11.2 Nausea with vomiting, unspecified; E86.0 Dehydration; I48.91 Unspecified atrial fibrillation; I10 Essential (primary) hypertension; K21.9 Gastro-esophageal reflux disease without esophagitis; Z90.89 Acquired absence of other organs
CPT/HCPCS: 36415; 80053; 83690; 85025; 85610; 96361; 96374; 99284; J7030; S0028; 99285

== ENCOUNTER → 2018-04-18 | Outpatient (CLI) | payer MEDICARE, MEDICAID ==
[~2018-04-18] MED LIST changes: +FENTANYL PF 100 MCG/2ML ONE; +FLUMAZENIL 0.1 MG/1 ML, 5ML ONE; +MIDAZOLAM 1 MG/ML, 5ML ONE; +NALOXONE 1 MG/ML, 2ML ONE
== END | disposition home or self-care (01) ==
LOC: RAD 09:23
PROVIDERS: ATTEND Nurse Practitioner Family
DX: M22.41 Chondromalacia patellae, right knee (principal); M71.21 Synovial cyst of popliteal space [Baker], right knee; M48.56XD Collapsed vertebra, not elsewhere classified, lumbar region, subsequent encounter for fracture with routine healing; M48.07 Spinal stenosis, lumbosacral region; M51.27 Other intervertebral disc displacement, lumbosacral region
CPT/HCPCS: 72148; 72220; 73721; 99156; 99157; J2250; J3010; J2310

== ENCOUNTER 2018-04-29 08:54 | Emergency (ER) | payer MEDICARE, MEDICAID ==
[~2018-04-29] VITALS: Ht 160 cm; Wt 70.0 kg
[~2018-04-29 08:54] MED LIST changes: -FENTANYL PF 100 MCG/2ML ONE; -FLUMAZENIL 0.1 MG/1 ML, 5ML ONE; -MIDAZOLAM 1 MG/ML, 5ML ONE; -NALOXONE 1 MG/ML, 2ML ONE
[2018-04-29 09:54] LABS: BASOPHILS # (AUTO) 0.03 x10^3/uL (0-0.1); BASOPHILS % (AUTO) 1 % (0-1); EOSINOPHILS # (AUTO) 0.08 x10^3/uL (0-0.4); EOSINOPHILS % (AUTO) 2 % (1-7); LYMPHOCYTES # (AUTO) 1.49 x10^3/uL (1-3.4); LYMPHOCYTES % (AUTO) 27 % (22-44); MD NO; MEAN CORPUSCULAR HEMOGLOBIN 31.5 pg (27.0-34.8); MEAN CORPUSCULAR HGB CONC 34.8 g/dL (32.4-35.8); MEAN CORPUSCULAR VOLUME 90.7 fL (80-100); MONOCYTES # (AUTO) 0.31 x10^3/uL (0.2-0.8); MONOCYTES % (AUTO) 6 % (2-9); NEUTROPHILS # (AUTO) 3.63 x10^3/uL (1.8-6.8); NEUTROPHILS % (AUTO) 66 % (42-75); PLATELET COUNT 273 x10^3/uL (130-400); RED BLOOD COUNT 4.48 x10^6/uL (3.82-5.3); RED CELL DISTRIBUTION WIDTH 12.9 % (9.6-15.2)
[2018-04-29 10:01] LABS: MICROSCOPIC NOT IND
[2018-04-29 10:03] LABS: INTERNATIONAL NORMALIZED RATIO 1.07 (0.93-1.1); PROTHROMBIN TIME 11.1 Seconds (9.6-11.5)
[2018-04-29 10:05] LABS: CULTURE INDICATED? NO
[2018-04-29 10:08] LABS: ALANINE AMINOTRANSFERASE 26 U/L (12-78); ANION GAP 6 mmol/L (5-15); CALCIUM 8.6 mg/dL (8.5-10.1); CHLORIDE 113 mmol/L (98-107); CREATININE 0.81 mg/dL (0.55-1.02)
[2018-04-29 10:09] LABS: ALKALINE PHOSPHATASE 66 U/L (45-117); TOTAL PROTEIN 7.4 g/dL (6.4-8.2)
[2018-04-29] MEDS ORDERED: ACETAMINOPHEN 325 MG TABLET ONE (10:19)
[2018-04-29 10:25] VITALS: BP 117/93
[2018-04-29] MEDS ORDERED: ACETAMINOPHEN 325 MG TABLET PO ONE (10:30)
[2018-04-29] MEDS ORDERED: NALOXONE 1 MG/ML, 2ML ONE (10:55)
== END 2018-04-29 10:46 | disposition home or self-care (01) ==
LOC: ED 09:52
DX: K62.5 Hemorrhage of anus and rectum (principal); M54.5 Low back pain; I48.91 Unspecified atrial fibrillation; F32.9 Major depressive disorder, single episode, unspecified; I10 Essential (primary) hypertension; K21.9 Gastro-esophageal reflux disease without esophagitis
CPT/HCPCS: 36415; 80053; 81003; 85025; 85610; 93005; 99285

== ENCOUNTER 2018-05-10 13:20 | Emergency (ER) | payer MEDICARE, MEDICAID ==
[~2018-05-10] VITALS: Ht 160 cm; Wt 74.9 kg
[2018-05-10 14:18] LABS: BASOPHILS # (AUTO) 0.03 x10^3/uL (0-0.1); BASOPHILS % (AUTO) 0 % (0-1); EOSINOPHILS # (AUTO) 0.07 x10^3/uL (0-0.4); EOSINOPHILS % (AUTO) 1 % (1-7); LYMPHOCYTES # (AUTO) 1.79 x10^3/uL (1-3.4); LYMPHOCYTES % (AUTO) 23 % (22-44); MD NO; MEAN CORPUSCULAR HEMOGLOBIN 31.8 pg (27.0-34.8); MEAN CORPUSCULAR HGB CONC 34.2 g/dL (32.4-35.8); MEAN CORPUSCULAR VOLUME 93.1 fL (80-100); MEAN PLATELET VOLUME 8.6 fL (7.4-10.4); MONOCYTES # (AUTO) 0.42 x10^3/uL (0.2-0.8); MONOCYTES % (AUTO) 6 % (2-9); NEUTROPHILS # (AUTO) 5.39 x10^3/uL (1.8-6.8); NEUTROPHILS % (AUTO) 70 % (42-75); PLATELET COUNT 254 x10^3/uL (130-400); RED BLOOD COUNT 4.33 x10^6/uL (3.82-5.3); RED CELL DISTRIBUTION WIDTH 12.8 % (9.6-15.2)
[2018-05-10 14:27] LABS: ALANINE AMINOTRANSFERASE 19 U/L (12-78); ALBUMIN 3.9 g/dL (3.4-5.0); ANION GAP 8 mmol/L (5-15); CHLORIDE 111 mmol/L (98-107); CREATININE 0.83 mg/dL (0.55-1.02)
[2018-05-10 14:29] LABS: ALKALINE PHOSPHATASE 63 U/L (45-117); BILIRUBIN,TOTAL 0.6 mg/dL (0.2-1.0); TOTAL PROTEIN 7.5 g/dL (6.4-8.2)
[2018-05-10] MEDS ORDERED: ACETAMINOPHEN 325 MG TABLET PO ONE (14:30)
[2018-05-10] MEDS ORDERED: ACETAMINOPHEN 325 MG TABLET ONE (14:35)
[2018-05-10] MEDS ORDERED: ACETAMINOPHEN 650 MG SUPP ONE (14:35)
[2018-05-10] MEDS ORDERED: ONDANSETRON ODT 4 MG ONE (14:35)
[2018-05-10] MEDS: ONDANSETRON ODT 4 MG PO ONE ×2 (14:48→14:50)
[2018-05-10 14:50] VITALS: BP 125/85
[2018-05-10 14:57] LABS: INTERNATIONAL NORMALIZED RATIO 1.03 (0.93-1.1); PROTHROMBIN TIME 10.7 Seconds (9.6-11.5)
== END 2018-05-10 15:08 | disposition home or self-care (01) ==
LOC: ED 14:55
DX: K62.5 Hemorrhage of anus and rectum (principal); Z88.0 Allergy status to penicillin; K21.9 Gastro-esophageal reflux disease without esophagitis; M54.9 Dorsalgia, unspecified; G89.29 Other chronic pain; I10 Essential (primary) hypertension; I48.91 Unspecified atrial fibrillation; E78.5 Hyperlipidemia, unspecified
CPT/HCPCS: 36415; 80053; 85025; 85610; 85730; 99284; Q0162

== ENCOUNTER 2018-06-05 12:18 | Emergency (ER) | payer MEDICARE, MEDICAID ==
[~2018-06-05] VITALS: Ht 157.5 cm; Wt 76.9 kg
[2018-06-05 12:21] VITALS: BP 136/83
[2018-06-05] MEDS ORDERED: DEXAMETHASONE 4 MG/ML, 1ML IM ONE (13:00)
[2018-06-05] MEDS ORDERED: DEXAMETHASONE 4 MG/ML, 1ML IVPush ONE (13:00)
[2018-06-05] MEDS ORDERED: HYDROmorphone 1 MG/ML, 1ML IM ONE (13:00)
[2018-06-05] MEDS ORDERED: SODIUM CHLORIDE FLUSH 10ML SYR IVF ONE (13:00)
[2018-06-05] MEDS ORDERED: PROMETHAZINE 25 MG/ML, 1ML IM ONE (13:00)
[2018-06-05] MEDS ORDERED: MORPHINE SULFATE 4 MG/ML, 1ML IVPush PRN (13:00)
[2018-06-05] MEDS ORDERED: PROMETHAZINE 25 MG/ML, 1ML ONE (13:12)
[2018-06-05] MEDS ORDERED: DEXAMETHASONE 4 MG/ML, 1ML ONE (13:12)
[2018-06-05] MEDS ORDERED: HYDROmorphone 2 MG/ML, 1ML ONE (13:13)
[2018-06-05 13:18] LABS: BASOPHILS # (AUTO) 0.03 x10^3/uL (0-0.1); BASOPHILS % (AUTO) 0 % (0-1); EOSINOPHILS # (AUTO) 0.14 x10^3/uL (0-0.4); EOSINOPHILS % (AUTO) 2 % (1-7); LYMPHOCYTES # (AUTO) 2.03 x10^3/uL (1-3.4); LYMPHOCYTES % (AUTO) 26 % (22-44); MD NO; MEAN CORPUSCULAR HEMOGLOBIN 31.7 pg (27.0-34.8); MEAN CORPUSCULAR HGB CONC 34.6 g/dL (32.4-35.8); MEAN CORPUSCULAR VOLUME 91.6 fL (80-100); MEAN PLATELET VOLUME 8.5 fL (7.4-10.4); MONOCYTES % (AUTO) 4 % (2-9); NEUTROPHILS # (AUTO) 5.22 x10^3/uL (1.8-6.8); NEUTROPHILS % (AUTO) 68 % (42-75); PLATELET COUNT 269 x10^3/uL (130-400); RED BLOOD COUNT 4.38 x10^6/uL (3.82-5.3); RED CELL DISTRIBUTION WIDTH 13.3 % (9.6-15.2)
[2018-06-05 13:27] LABS: ALANINE AMINOTRANSFERASE 28 U/L (12-78); ALBUMIN 3.7 g/dL (3.4-5.0); ANION GAP 7 mmol/L (5-15); CHLORIDE 109 mmol/L (98-107); CREATININE 0.81 mg/dL (0.55-1.02)
[2018-06-05 13:29] LABS: ALKALINE PHOSPHATASE 57 U/L (45-117); BILIRUBIN,TOTAL 0.6 mg/dL (0.2-1.0); TOTAL PROTEIN 7.2 g/dL (6.4-8.2)
[2018-06-05 14:45] LABS: CULTURE INDICATED? YES; MICROSCOPIC INDICATED
== END 2018-06-05 14:34 | disposition home or self-care (01) ==
LOC: ED 12:53
DX: M54.42 Lumbago with sciatica, left side (principal); R11.2 Nausea with vomiting, unspecified; E78.5 Hyperlipidemia, unspecified; I48.91 Unspecified atrial fibrillation; F32.9 Major depressive disorder, single episode, unspecified; I10 Essential (primary) hypertension; K21.9 Gastro-esophageal reflux disease without esophagitis; Z88.0 Allergy status to penicillin; Z90.89 Acquired absence of other organs
CPT/HCPCS: 36415; 80053; 81001; 83690; 85025; 87077; 87086; 87186; 96372; 99284; J1100; J1170; J2550

== ENCOUNTER 2018-06-14 21:31 | Emergency (ER) | payer MEDICARE, MEDICAID ==
[~2018-06-14] VITALS: Ht 160 cm; Wt 77.2 kg
[2018-06-14] MEDS ORDERED: KETOROLAC 30 MG/1 ML ONE (22:23)
[2018-06-14] MEDS ORDERED: ONDANSETRON ODT 4 MG ONE (22:23)
[2018-06-14] MEDS ORDERED: KETOROLAC 30 MG/1 ML IM ONE (22:30)
[2018-06-14] MEDS ORDERED: ONDANSETRON ODT 8 MG PO ONE (22:30)
[2018-06-14] MEDS ORDERED: PROMETHAZINE 25 MG/ML, 1ML ONE (22:40)
[2018-06-14 22:42] LABS: BASOPHILS # (AUTO) 0.03 x10^3/uL (0-0.1); BASOPHILS % (AUTO) 0 % (0-1); EOSINOPHILS # (AUTO) 0.11 x10^3/uL (0-0.4); EOSINOPHILS % (AUTO) 1 % (1-7); LYMPHOCYTES # (AUTO) 2.63 x10^3/uL (1-3.4); LYMPHOCYTES % (AUTO) 30 % (22-44); MD NO; MEAN CORPUSCULAR HEMOGLOBIN 31.3 pg (27.0-34.8); MEAN CORPUSCULAR HGB CONC 33.9 g/dL (32.4-35.8); MEAN CORPUSCULAR VOLUME 92.3 fL (80-100); MEAN PLATELET VOLUME 8.3 fL (7.4-10.4); MONOCYTES # (AUTO) 0.61 x10^3/uL (0.2-0.8); MONOCYTES % (AUTO) 7 % (2-9); NEUTROPHILS # (AUTO) 5.48 x10^3/uL (1.8-6.8); NEUTROPHILS % (AUTO) 62 % (42-75); PLATELET COUNT 259 x10^3/uL (130-400); RED BLOOD COUNT 4.19 x10^6/uL (3.82-5.3); RED CELL DISTRIBUTION WIDTH 13.5 % (9.6-15.2)
[2018-06-14 22:45] VITALS: BP 133/86
[2018-06-14 22:50] LABS: ALANINE AMINOTRANSFERASE 41 U/L (12-78); ALBUMIN 3.7 g/dL (3.4-5.0); ANION GAP 5 mmol/L (5-15); CALCIUM 8.6 mg/dL (8.5-10.1); CHLORIDE 113 mmol/L (98-107); CREATININE 0.79 mg/dL (0.55-1.02)
[2018-06-14 22:55] LABS: ALKALINE PHOSPHATASE 65 U/L (45-117); BILIRUBIN,TOTAL 0.4 mg/dL (0.2-1.0); TOTAL PROTEIN 7.2 g/dL (6.4-8.2); TROPONIN I < 0.015 ng/mL (0.000-0.045)
[2018-06-14] MEDS ORDERED: PROMETHAZINE 25 MG/ML, 1ML IM ONE (23:00)
[2018-06-18] MEDS ORDERED: METH4TAB6 PO (15:32)
== END 2018-06-14 23:49 | disposition home or self-care (01) ==
LOC: ED 23:43
DX: R07.2 Precordial pain (principal); R11.2 Nausea with vomiting, unspecified; Z87.891 Personal history of nicotine dependence; Z90.49 Acquired absence of other specified parts of digestive tract; Z88.0 Allergy status to penicillin; K21.9 Gastro-esophageal reflux disease without esophagitis; I48.91 Unspecified atrial fibrillation; E78.5 Hyperlipidemia, unspecified
CPT/HCPCS: 36415; 71045; 80053; 83690; 84484; 85025; 93005; 96372; 99285; J1885; J2550

== ENCOUNTER 2018-06-16 17:37 | Emergency (ER) | payer MEDICARE, MEDICAID ==
[~2018-06-16] VITALS: Ht 160 cm; Wt 77.5 kg
[2018-06-16] MEDS ORDERED: ONDANSETRON 2MG/ML, 2ML ONE (18:24)
[2018-06-16] MEDS ORDERED: KETOROLAC 30 MG/1 ML ONE (18:24)
[2018-06-16] MEDS ORDERED: ONDANSETRON 2MG/ML, 2ML IVPush ONE (18:30)
[2018-06-16] MEDS ORDERED: KETOROLAC 30 MG/1 ML IVPush ONE (18:30)
[2018-06-16 18:32] LABS: BASOPHILS # (AUTO) 0.08 x10^3/uL (0-0.1); BASOPHILS % (AUTO) 1 % (0-1); EOSINOPHILS # (AUTO) 0.08 x10^3/uL (0-0.4); EOSINOPHILS % (AUTO) 1 % (1-7); LYMPHOCYTES # (AUTO) 1.41 x10^3/uL (1-3.4); LYMPHOCYTES % (AUTO) 16 % (22-44); MD NO; MEAN CORPUSCULAR HEMOGLOBIN 31.4 pg (27.0-34.8); MEAN CORPUSCULAR HGB CONC 34.1 g/dL (32.4-35.8); MEAN CORPUSCULAR VOLUME 92.1 fL (80-100); MEAN PLATELET VOLUME 8.4 fL (7.4-10.4); MONOCYTES # (AUTO) 0.42 x10^3/uL (0.2-0.8); MONOCYTES % (AUTO) 5 % (2-9); NEUTROPHILS # (AUTO) 6.92 x10^3/uL (1.8-6.8); NEUTROPHILS % (AUTO) 78 % (42-75); PLATELET COUNT 261 x10^3/uL (130-400); RED BLOOD COUNT 4.33 x10^6/uL (3.82-5.3); RED CELL DISTRIBUTION WIDTH 13.1 % (9.6-15.2)
[2018-06-16 18:40] LABS: ALANINE AMINOTRANSFERASE 35 U/L (12-78); ALBUMIN 3.9 g/dL (3.4-5.0); ANION GAP 8 mmol/L (5-15); CALCIUM 8.9 mg/dL (8.5-10.1); CHLORIDE 114 mmol/L (98-107); CREATININE 0.94 mg/dL (0.55-1.02)
[2018-06-16 18:42] LABS: MICROSCOPIC INDICATED
[2018-06-16 18:43] LABS: ALKALINE PHOSPHATASE 73 U/L (45-117); BILIRUBIN,TOTAL 0.3 mg/dL (0.2-1.0); TOTAL PROTEIN 7.3 g/dL (6.4-8.2)
[2018-06-16 18:43] LABS: CULTURE INDICATED? YES
[2018-06-16 19:56] VITALS: BP 115/52
[2018-06-18] MEDS ORDERED: METH4TAB6 PO (15:32)
== END 2018-06-16 19:59 | disposition home or self-care (01) ==
LOC: ED 18:20
DX: R10.30 Lower abdominal pain, unspecified (principal); R11.2 Nausea with vomiting, unspecified; K21.9 Gastro-esophageal reflux disease without esophagitis; M54.9 Dorsalgia, unspecified; G89.29 Other chronic pain; I48.91 Unspecified atrial fibrillation; E78.5 Hyperlipidemia, unspecified; Z90.49 Acquired absence of other specified parts of digestive tract; Z88.0 Allergy status to penicillin; Z87.891 Personal history of nicotine dependence
CPT/HCPCS: 36415; 80053; 81001; 83690; 85025; 87086; 96374; 96375; 99284; J1885; J2405

== ENCOUNTER 2018-06-19 12:27 | Emergency (ER) | payer MEDICARE, MEDICAID ==
[~2018-06-19] VITALS: Ht 160 cm; Wt 77.3 kg
[~2018-06-19 12:27] MED LIST changes: +METH4TAB6 PO
[2018-06-19] MEDS ORDERED: SODIUM CHLORIDE 0.9% 1,000ML IVBOLUS ONE (13:00)
[2018-06-19] MEDS ORDERED: SODIUM CHLORIDE FLUSH 10ML SYR IVF ONE (13:00)
[2018-06-19] MEDS ORDERED: ONDANSETRON 2MG/ML, 2ML IVPush ONE (13:00)
[2018-06-19 13:09] LABS: MICROSCOPIC AUTO
[2018-06-19 13:18] LABS: CULTURE INDICATED? YES
[2018-06-19 13:55] LABS: BASOPHILS # (AUTO) 0.02 x10^3/uL (0-0.1); BASOPHILS % (AUTO) 0 % (0-1); EOSINOPHILS # (AUTO) 0.01 x10^3/uL (0-0.4); EOSINOPHILS % (AUTO) 0 % (1-7); LYMPHOCYTES # (AUTO) 0.74 x10^3/uL (1-3.4); LYMPHOCYTES % (AUTO) 7 % (22-44); MD NO; MEAN CORPUSCULAR HGB CONC 33.7 g/dL (32.4-35.8); MEAN CORPUSCULAR VOLUME 91.9 fL (80-100); MEAN PLATELET VOLUME 8.7 fL (7.4-10.4); MONOCYTES # (AUTO) 0.06 x10^3/uL (0.2-0.8); MONOCYTES % (AUTO) 1 % (2-9); NEUTROPHILS # (AUTO) 9.42 x10^3/uL (1.8-6.8); NEUTROPHILS % (AUTO) 92 % (42-75); PLATELET COUNT 292 x10^3/uL (130-400); RED BLOOD COUNT 4.71 x10^6/uL (3.82-5.3); RED CELL DISTRIBUTION WIDTH 13.1 % (9.6-15.2)
[2018-06-19] MEDS ORDERED: ONDANSETRON 2MG/ML, 2ML ONE (13:56)
[2018-06-19 13:58] LABS: CLOSTRIDIUM DIFFICILE TOXIN NEGATIVE (Negative)
[2018-06-19 14:02] LABS: CLOSTRIDIUM DIFFICILE ANTIGEN POSITIVE
[2018-06-19 14:03] LABS: ALBUMIN 4.1 g/dL (3.4-5.0); ANION GAP 12 mmol/L (5-15); CALCIUM 9.4 mg/dL (8.5-10.1); CHLORIDE 112 mmol/L (98-107)
[2018-06-19 14:06] LABS: ALANINE AMINOTRANSFERASE 33 U/L (12-78); ALKALINE PHOSPHATASE 67 U/L (45-117); BILIRUBIN,TOTAL 0.7 mg/dL (0.2-1.0); CREATININE 0.87 mg/dL (0.55-1.02); TOTAL PROTEIN 7.7 g/dL (6.4-8.2)
[2018-06-19] MEDS ORDERED: metroNIDAZOLE 500 MG TABLET PO ONE (15:00)
[2018-06-19] MEDS ORDERED: metroNIDAZOLE 500 MG TABLET ONE (15:19)
[2018-06-19] MEDS ORDERED: HYDROmorphone 2 MG/ML, 1ML ONE (15:19)
[2018-06-19] MEDS ORDERED: HYDROmorphone 2 MG/ML, 1ML IVPush ONE (15:30)
[2018-06-19 15:32] VITALS: BP 129/81
[2018-06-19] MEDS ORDERED: OMEP40CA6 PO (15:32)
[2018-06-19] MEDS ORDERED: OXYC1TAB7 PO (15:32)
== END 2018-06-19 17:11 | disposition home or self-care (01) ==
LOC: ED 14:02
DX: R11.2 Nausea with vomiting, unspecified (principal); R19.7 Diarrhea, unspecified; E86.0 Dehydration; M54.5 Low back pain; G89.29 Other chronic pain; E78.5 Hyperlipidemia, unspecified; I48.91 Unspecified atrial fibrillation; I10 Essential (primary) hypertension; K21.9 Gastro-esophageal reflux disease without esophagitis; Z90.89 Acquired absence of other organs; Z87.891 Personal history of nicotine dependence
CPT/HCPCS: 36415; 80053; 81001; 83690; 85025; 87086; 87324; 87493; 89055; 96361; 96374; 96375; 99285; J1170; J2405; J7030

== ENCOUNTER 2018-06-25 15:17 | Emergency (ER) | payer MEDICARE, MEDICAID ==
[~2018-06-25] VITALS: Ht 160 cm; Wt 76.0 kg
[~2018-06-25 15:17] MED LIST changes: +OMEP40CA6 PO; +OXYC1TAB7 PO
[2018-06-25 15:20] VITALS: BP 124/74
[2018-06-25] MEDS ORDERED: ASPIRIN 81 MG TABLET CHEW ONE (15:47)
[2018-06-25] MEDS ORDERED: ONDANSETRON 2MG/ML, 2ML ONE (15:47)
[2018-06-25] MEDS ORDERED: MORPHINE SULFATE 4 MG/ML, 1ML ONE (15:47)
[2018-06-25] MEDS ORDERED: SODIUM CHLORIDE FLUSH 10ML SYR IVF ONE (16:00)
[2018-06-25] MEDS ORDERED: MORPHINE SULFATE 4 MG/ML, 1ML IVPush PRN (16:00)
[2018-06-25] MEDS ORDERED: ASPIRIN 81 MG TABLET CHEW PO ONE (16:00)
[2018-06-25] MEDS ORDERED: ONDANSETRON 2MG/ML, 2ML IVPush ONE (16:00)
[2018-06-25 16:03] LABS: BASOPHILS # (AUTO) 0.03 x10^3/uL (0-0.1); BASOPHILS % (AUTO) 0 % (0-1); EOSINOPHILS # (AUTO) 0.12 x10^3/uL (0-0.4); EOSINOPHILS % (AUTO) 2 % (1-7); LYMPHOCYTES # (AUTO) 1.97 x10^3/uL (1-3.4); LYMPHOCYTES % (AUTO) 26 % (22-44); MD NO; MEAN CORPUSCULAR HEMOGLOBIN 31.6 pg (27.0-34.8); MEAN CORPUSCULAR HGB CONC 34.1 g/dL (32.4-35.8); MEAN CORPUSCULAR VOLUME 92.6 fL (80-100); MEAN PLATELET VOLUME 8.5 fL (7.4-10.4); MONOCYTES # (AUTO) 0.36 x10^3/uL (0.2-0.8); MONOCYTES % (AUTO) 5 % (2-9); NEUTROPHILS # (AUTO) 5.05 x10^3/uL (1.8-6.8); NEUTROPHILS % (AUTO) 67 % (42-75); PLATELET COUNT 275 x10^3/uL (130-400); RED BLOOD COUNT 4.48 x10^6/uL (3.82-5.3); RED CELL DISTRIBUTION WIDTH 13.4 % (9.6-15.2)
[2018-06-25 16:09] LABS: ALBUMIN 4.1 g/dL (3.4-5.0); ANION GAP 8 mmol/L (5-15); CALCIUM 8.7 mg/dL (8.5-10.1); CHLORIDE 111 mmol/L (98-107); CREATININE 0.79 mg/dL (0.55-1.02)
[2018-06-25 16:13] LABS: TROPONIN I < 0.015 ng/mL (0.000-0.045)
[2018-06-25 16:23] LABS: CULTURE INDICATED? YES; MICROSCOPIC INDICATED
[2018-06-25] MEDS ORDERED: LORazepam 2 MG/ML, 1ML ONE (16:25)
[2018-06-25] MEDS ORDERED: LORazepam 2 MG/ML, 1ML IVPush ONE (16:30)
== END 2018-06-25 17:14 | disposition home or self-care (01) ==
LOC: ED 16:54
DX: S39.012A Strain of muscle, fascia and tendon of lower back, initial encounter (principal); R07.89 Other chest pain; E78.5 Hyperlipidemia, unspecified; I10 Essential (primary) hypertension; G89.29 Other chronic pain; X58.XXXA Exposure to other specified factors, initial encounter; Y93.89 Activity, other specified; Y92.89 Other specified places as the place of occurrence of the external cause; Y99.8 Other external cause status
CPT/HCPCS: 36415; 71045; 80048; 81001; 82040; 83880; 84484; 85025; 87086; 93005; 96374; 96375; 99285; J2060; J2405

== ENCOUNTER 2018-06-28 12:31 | Emergency (ER) | payer MEDICARE, MEDICAID ==
[~2018-06-28] VITALS: Ht 160 cm; Wt 74.7 kg
[2018-06-28] MEDS ORDERED: ONDANSETRON ODT 4 MG PO ONE (13:30)
[2018-06-28] MEDS ORDERED: PLEASE ENTER HEIGHT AND WEIGHT MC SCH (13:30)
[2018-06-28 13:50] LABS: BASOPHILS # (AUTO) 0.04 x10^3/uL (0-0.1); BASOPHILS % (AUTO) 0 % (0-1); EOSINOPHILS # (AUTO) 0.03 x10^3/uL (0-0.4); EOSINOPHILS % (AUTO) 0 % (1-7); LYMPHOCYTES # (AUTO) 1.49 x10^3/uL (1-3.4); LYMPHOCYTES % (AUTO) 14 % (22-44); MD NO; MEAN CORPUSCULAR HEMOGLOBIN 31.4 pg (27.0-34.8); MEAN CORPUSCULAR HGB CONC 33.8 g/dL (32.4-35.8); MEAN CORPUSCULAR VOLUME 93.1 fL (80-100); MEAN PLATELET VOLUME 8.6 fL (7.4-10.4); MONOCYTES # (AUTO) 0.47 x10^3/uL (0.2-0.8); MONOCYTES % (AUTO) 5 % (2-9); NEUTROPHILS % (AUTO) 81 % (42-75); PLATELET COUNT 329 x10^3/uL (130-400); RED BLOOD COUNT 4.65 x10^6/uL (3.82-5.3); RED CELL DISTRIBUTION WIDTH 13.4 % (9.6-15.2)
[2018-06-28 14:03] LABS: ALANINE AMINOTRANSFERASE 25 U/L (12-78); ALBUMIN 4.1 g/dL (3.4-5.0); ANION GAP 11 mmol/L (5-15); CALCIUM 9.2 mg/dL (8.5-10.1); CHLORIDE 108 mmol/L (98-107)
[2018-06-28 14:04] LABS: ALKALINE PHOSPHATASE 72 U/L (45-117); BILIRUBIN,TOTAL 0.9 mg/dL (0.2-1.0)
[2018-06-28] MEDS ORDERED: ONDANSETRON ODT 4 MG ONE (14:31)
[2018-06-28] MEDS ORDERED: METOCLOPRAMIDE 5 MG/ML, 2ML IVPush ONE (15:00)
[2018-06-28] MEDS ORDERED: DIPHENHYDRAMINE 50 MG/ML, 1ML IVPush ONE (15:00)
[2018-06-28] MEDS ORDERED: METOCLOPRAMIDE 5 MG/ML, 2ML ONE (15:15)
[2018-06-28] MEDS ORDERED: DICYCLOMINE 10 MG/ML, 2ML ONE (15:15)
[2018-06-28] MEDS ORDERED: DIPHENHYDRAMINE 50 MG/ML, 1ML ONE (15:17)
[2018-06-28] MEDS ORDERED: DICYCLOMINE 10 MG/ML, 2ML IM ONE (15:30)
[2018-06-28 16:20] VITALS: BP 120/65
== END 2018-06-28 17:31 | disposition home or self-care (01) ==
LOC: ED 14:34
DX: A04.72 Enterocolitis due to Clostridium difficile, not specified as recurrent (principal); R00.2 Palpitations; I10 Essential (primary) hypertension; E78.5 Hyperlipidemia, unspecified; I48.91 Unspecified atrial fibrillation; F32.9 Major depressive disorder, single episode, unspecified; Z90.89 Acquired absence of other organs; Z88.0 Allergy status to penicillin
CPT/HCPCS: 36415; 74021; 80053; 83690; 85025; 93005; 96372; 96374; 96375; 99285; J0500; J1200; J2765

== ENCOUNTER 2018-07-05 12:49 | Inpatient (IN) | payer MEDICARE, MEDICAID ==
[~2018-07-05] VITALS: Ht 157.5 cm; Wt 83.4 kg
[2018-07-05] MEDS ORDERED: SODIUM CHLORIDE 0.9% 1,000 ML IV ONE (14:12)
[2018-07-05] MEDS ORDERED: ONDANSETRON 2MG/ML, 2ML ONE (14:23)
[2018-07-05] MEDS ORDERED: HYDROmorphone 2 MG/ML, 1ML ONE (14:23)
[2018-07-05] MEDS ORDERED: SODIUM CHLORIDE 0.9% 1,000ML IVBOLUS ONE (14:30)
[2018-07-05] MEDS ORDERED: SODIUM CHLORIDE FLUSH 10ML SYR IVF ONE (14:30)
[2018-07-05] MEDS ORDERED: HYDROmorphone 2 MG/ML, 1ML IVPush PRN (14:30)
[2018-07-05] MEDS ORDERED: ONDANSETRON 2MG/ML, 2ML IVPush ONE (14:30)
[2018-07-05 14:32] LABS: BASOPHILS # (AUTO) 0.01 x10^3/uL (0-0.1); BASOPHILS % (AUTO) 0 % (0-1); EOSINOPHILS # (AUTO) 0.01 x10^3/uL (0-0.4); EOSINOPHILS % (AUTO) 0 % (1-7); LYMPHOCYTES # (AUTO) 0.88 x10^3/uL (1-3.4); LYMPHOCYTES % (AUTO) 7 % (22-44); MD NO; MEAN CORPUSCULAR HEMOGLOBIN 31.6 pg (27.0-34.8); MEAN CORPUSCULAR HGB CONC 33.9 g/dL (32.4-35.8); MEAN CORPUSCULAR VOLUME 93.3 fL (80-100); MEAN PLATELET VOLUME 8.6 fL (7.4-10.4); MONOCYTES # (AUTO) 0.37 x10^3/uL (0.2-0.8); MONOCYTES % (AUTO) 3 % (2-9); NEUTROPHILS # (AUTO) 11.73 x10^3/uL (1.8-6.8); NEUTROPHILS % (AUTO) 90 % (42-75); PLATELET COUNT 299 x10^3/uL (130-400); RED BLOOD COUNT 4.25 x10^6/uL (3.82-5.3); RED CELL DISTRIBUTION WIDTH 13.7 % (9.6-15.2)
[2018-07-05 14:43] LABS: ALANINE AMINOTRANSFERASE 24 U/L (12-78); ALBUMIN 3.9 g/dL (3.4-5.0); ANION GAP 6 mmol/L (5-15); CALCIUM 8.8 mg/dL (8.5-10.1); CHLORIDE 109 mmol/L (98-107); CREATININE 0.92 mg/dL (0.55-1.02)
[2018-07-05 14:45] LABS: ALKALINE PHOSPHATASE 63 U/L (45-117); BILIRUBIN,TOTAL 0.2 mg/dL (0.2-1.0)
[2018-07-05] MEDS ORDERED: POLYETHYLENE GLYCOL 17 GM PACKET PO PRN (17:00)
[2018-07-05] MEDS ORDERED: DOCUSATE 100 MG CAPSULE PO PRN (17:00)
[2018-07-05] MEDS ORDERED: SODIUM CHLORIDE FLUSH 10ML SYR IVF PRN (17:00)
[2018-07-05] MEDS ORDERED: ACETAMINOPHEN 325 MG TABLET PO PRN (17:00)
[2018-07-05 18:11] VITALS: BP 122/74
[2018-07-05] MEDS: morphine SULFATE 10 MG/ML, 1ML IVPush PRN ×2 (18:11→21:02)
[2018-07-05] MEDS: ONDANSETRON 2MG/ML, 2ML IVPush PRN ×2 (18:11→23:29)
[2018-07-05] MEDS: NS + 20MEQ KCL 1,000 ML IV SCH (19:51)
[2018-07-05 20:40] VITALS: BP 119/72
[2018-07-05] MEDS: FAMOTIDINE 20 MG TABLET PO SCH (21:01)
[2018-07-05] MEDS: ENOXAPARIN 40 MG/0.4 ML SQ SCH (21:02)
[2018-07-06] MEDS: morphine SULFATE 10 MG/ML, 1ML IVPush PRN ×3 (00:28→08:43)
[2018-07-06 01:24] LABS: MICROSCOPIC NOT IND
[2018-07-06 01:27] LABS: CULTURE INDICATED? NO
[2018-07-06 04:00] VITALS: BP 131/74
[2018-07-06] MEDS: NS + 20MEQ KCL 1,000 ML IV SCH (04:12)
[2018-07-06 05:23] LABS: ANION GAP 7 mmol/L (5-15); CALCIUM 7.7 mg/dL (8.5-10.1); CHLORIDE 115 mmol/L (98-107); CREATININE 0.69 mg/dL (0.55-1.02)
[2018-07-06 05:40] LABS: BASOPHILS # (AUTO) 0.05 x10^3/uL (0-0.1); BASOPHILS % (AUTO) 1 % (0-1); EOSINOPHILS % (AUTO) 1 % (1-7); LYMPHOCYTES # (AUTO) 2.64 x10^3/uL (1-3.4); LYMPHOCYTES % (AUTO) 33 % (22-44); MD NO; MEAN CORPUSCULAR HEMOGLOBIN 30.9 pg (27.0-34.8); MEAN CORPUSCULAR HGB CONC 33.3 g/dL (32.4-35.8); MEAN CORPUSCULAR VOLUME 92.6 fL (80-100); MEAN PLATELET VOLUME 9.4 fL (7.4-10.4); MONOCYTES # (AUTO) 0.52 x10^3/uL (0.2-0.8); MONOCYTES % (AUTO) 7 % (2-9); NEUTROPHILS # (AUTO) 4.69 x10^3/uL (1.8-6.8); NEUTROPHILS % (AUTO) 59 % (42-75); PLATELET COUNT 205 x10^3/uL (130-400); RED BLOOD COUNT 3.63 x10^6/uL (3.82-5.3)
[2018-07-06] MEDS ORDERED: DIPHENHYDRAMINE 25 MG CAPSULE PO ONE (06:00)
[2018-07-06] MEDS: ONDANSETRON 2MG/ML, 2ML IVPush PRN ×3 (06:15→18:11)
[2018-07-06] MEDS: FAMOTIDINE 20 MG TABLET PO SCH ×2 (08:26→22:45)
[2018-07-06 08:38] VITALS: BP 102/68
[2018-07-06 13:55] VITALS: BP 100/66
[2018-07-06 19:16] VITALS: BP 92/68
[2018-07-06] MEDS: ENOXAPARIN 40 MG/0.4 ML SQ SCH (22:45)
[2018-07-07 00:25] VITALS: BP 102/64
[2018-07-07] MEDS: ONDANSETRON 2MG/ML, 2ML IVPush PRN (07:31)
[2018-07-07] MEDS: FAMOTIDINE 20 MG TABLET PO SCH (07:31)
[2018-07-07 08:14] VITALS: BP 135/84
[2018-07-07] MEDS ORDERED: PHEN100T90 PO (11:43)
== END 2018-07-07 12:30 | disposition home or self-care (01) | DRG 384 ==
LOC: ED 14:01 → EDIP 16:37 → SUATTDRO 16:39 → 3NE 17:51
PROVIDERS: ADMIT Family Medicine; ATTEND Family Medicine
DX: K27.9 Peptic ulcer, site unspecified, unspecified as acute or chronic, without hemorrhage or perforation (principal); D68.69 Other thrombophilia; R11.2 Nausea with vomiting, unspecified; D72.819 Decreased white blood cell count, unspecified; E78.5 Hyperlipidemia, unspecified; F32.9 Major depressive disorder, single episode, unspecified; G89.29 Other chronic pain; I10 Essential (primary) hypertension; R30.0 Dysuria; I48.91 Unspecified atrial fibrillation; K21.9 Gastro-esophageal reflux disease without esophagitis; Z83.3 Family history of diabetes mellitus; Z86.19 Personal history of other infectious and parasitic diseases; Z87.11 Personal history of peptic ulcer disease; Z90.49 Acquired absence of other specified parts of digestive tract; Z98.51 Tubal ligation status
CPT/HCPCS: 36415; 80048; 80053; 81003; 83690; 85025; 90656; 93005; 96361; 96374; 96375; 96376; 99285; G0378; J1170; J1650; J2405; J3480; J2270; J7030; Q0163

== ENCOUNTER 2018-08-06 13:23 | Emergency (ER) | payer MEDICARE, MEDICAID ==
[~2018-08-06] VITALS: Ht 160 cm; Wt 79.8 kg
[~2018-08-06 13:23] MED LIST changes: -ASPI-621 PO; +ASPI81TA45 PO; -NORT25CA PO; +NORT25CA78 PO; +PHEN100T90 PO; -TRAZ-136 PO; +TRAZ50TA66 PO
[2018-08-06] MEDS ORDERED: DIPHENHYDRAMINE 50 MG/ML, 1ML IVPush ONE (14:30)
[2018-08-06] MEDS ORDERED: METOCLOPRAMIDE 5 MG/ML, 2ML IVPush ONE (14:30)
[2018-08-06] MEDS ORDERED: MORPHINE SULFATE 4 MG/ML, 1ML IVPush PRN (14:30)
[2018-08-06] MEDS ORDERED: DIPHENHYDRAMINE 50 MG/ML, 1ML ONE (14:41)
[2018-08-06] MEDS ORDERED: METOCLOPRAMIDE 5 MG/ML, 2ML ONE (14:41)
[2018-08-06] MEDS ORDERED: MORPHINE SULFATE 4 MG/ML, 1ML ONE (14:41)
[2018-08-06 14:52] LABS: MICROSCOPIC AUTO
[2018-08-06 14:59] LABS: BASOPHILS # (AUTO) 0.03 x10^3/uL (0-0.1); BASOPHILS % (AUTO) 0 % (0-1); EOSINOPHILS % (AUTO) 1 % (1-7); LYMPHOCYTES # (AUTO) 1.79 x10^3/uL (1-3.4); LYMPHOCYTES % (AUTO) 25 % (22-44); MD NO; MEAN CORPUSCULAR HEMOGLOBIN 30.9 pg (27.0-34.8); MEAN CORPUSCULAR HGB CONC 33.8 g/dL (32.4-35.8); MEAN CORPUSCULAR VOLUME 91.4 fL (80-100); MEAN PLATELET VOLUME 8.5 fL (7.4-10.4); MONOCYTES # (AUTO) 0.35 x10^3/uL (0.2-0.8); MONOCYTES % (AUTO) 5 % (2-9); NEUTROPHILS # (AUTO) 5.01 x10^3/uL (1.8-6.8); NEUTROPHILS % (AUTO) 69 % (42-75); PLATELET COUNT 243 x10^3/uL (130-400); RED BLOOD COUNT 4.03 x10^6/uL (3.82-5.3); RED CELL DISTRIBUTION WIDTH 13.8 % (9.6-15.2)
[2018-08-06 15:02] LABS: CULTURE INDICATED? YES
[2018-08-06 15:07] LABS: ALANINE AMINOTRANSFERASE 33 U/L (12-78); ALBUMIN 3.5 g/dL (3.4-5.0); ANION GAP 7 mmol/L (5-15); CALCIUM 8.5 mg/dL (8.5-10.1); CHLORIDE 112 mmol/L (98-107)
[2018-08-06 15:08] LABS: ALKALINE PHOSPHATASE 64 U/L (45-117); BILIRUBIN,TOTAL 0.3 mg/dL (0.2-1.0); TOTAL PROTEIN 6.7 g/dL (6.4-8.2)
[2018-08-06] MEDS ORDERED: OMEP40CA6 PO (16:01)
[2018-08-06 16:41] VITALS: BP 122/58
== END 2018-08-06 16:43 | disposition home or self-care (01) ==
LOC: ED 15:48
DX: K64.8 Other hemorrhoids (principal); R11.10 Vomiting, unspecified; D64.9 Anemia, unspecified; I48.91 Unspecified atrial fibrillation; K21.9 Gastro-esophageal reflux disease without esophagitis; E78.5 Hyperlipidemia, unspecified; F32.9 Major depressive disorder, single episode, unspecified; Z88.0 Allergy status to penicillin; Z90.49 Acquired absence of other specified parts of digestive tract
CPT/HCPCS: 36415; 74176; 80053; 81001; 83690; 85025; 87086; 96374; 96375; 99284; J1200; J2765

== ENCOUNTER 2018-09-05 12:02 | Observation (INO) | payer MEDICARE, MEDICAID ==
[~2018-09-05] VITALS: Ht 160 cm; Wt 81.2 kg
[~2018-09-05 12:02] MED LIST changes: +ACID1TAB7 PO
--- NOTE | 2018-09-05 13:00 | NUR ---
PT TO BATHROOM AT THIS TIME.
[2018-09-05] MEDS ORDERED: SODIUM CHLORIDE FLUSH 10ML SYR IVF ONE (13:30)
--- NOTE | 2018-09-05 13:30 | NUR ---
PT REPORTS ABDOMINAL PAIN, N/V/D X2 DAYS. BRIGHT RED BLOOD IN STOOL.
[2018-09-05 14:21] LABS: BASOPHILS # (AUTO) 0.02 x10^3/uL (0-0.1); BASOPHILS % (AUTO) 0 % (0-1); EOSINOPHILS # (AUTO) 0.12 x10^3/uL (0-0.4); EOSINOPHILS % (AUTO) 1 % (1-7); LYMPHOCYTES # (AUTO) 1.22 x10^3/uL (1-3.4); LYMPHOCYTES % (AUTO) 14 % (22-44); MD NO; MEAN CORPUSCULAR HEMOGLOBIN 29.8 pg (27.0-34.8); MEAN CORPUSCULAR HGB CONC 32.8 g/dL (32.4-35.8); MEAN CORPUSCULAR VOLUME 90.9 fL (80-100); MEAN PLATELET VOLUME 8.2 fL (7.4-10.4); MONOCYTES # (AUTO) 0.45 x10^3/uL (0.2-0.8); MONOCYTES % (AUTO) 5 % (2-9); NEUTROPHILS # (AUTO) 7.21 x10^3/uL (1.8-6.8); NEUTROPHILS % (AUTO) 80 % (42-75); PLATELET COUNT 320 x10^3/uL (130-400); RED BLOOD COUNT 4.03 x10^6/uL (3.82-5.3); RED CELL DISTRIBUTION WIDTH 13.4 % (9.6-15.2)
[2018-09-05 14:30] LABS: INTERNATIONAL NORMALIZED RATIO 1.01 (0.93-1.1); PROTHROMBIN TIME 10.7 Seconds (9.6-11.5)
[2018-09-05 14:33] LABS: ALBUMIN 3.7 g/dL (3.4-5.0); ANION GAP 9 mmol/L (5-15); CHLORIDE 109 mmol/L (98-107)
[2018-09-05 14:41] LABS: CLOSTRIDIUM DIFFICILE ANTIGEN NEGATIVE; CLOSTRIDIUM DIFFICILE TOXIN NEGATIVE (Negative)
[2018-09-05 14:41] LABS: ALANINE AMINOTRANSFERASE 19 U/L (12-78); ALKALINE PHOSPHATASE 66 U/L (45-117); BILIRUBIN,TOTAL 0.5 mg/dL (0.2-1.0); CALCIUM 8.9 mg/dL (8.5-10.1); CREATININE 0.63 mg/dL (0.55-1.02); TOTAL PROTEIN 6.7 g/dL (6.4-8.2)
[2018-09-05] MEDS ORDERED: ONDANSETRON 2MG/ML, 2ML ONE (14:57)
[2018-09-05] MEDS ORDERED: MORPHINE SULFATE 4 MG/ML, 1ML ONE ×2 (14:58→16:26)
[2018-09-05] MEDS ORDERED: ONDANSETRON 2MG/ML, 2ML IVPush ONE (15:00)
[2018-09-05] MEDS: MORPHINE SULFATE 4 MG/ML, 1ML IVPush PRN ×2 (15:09→16:29)
--- NOTE | 2018-09-05 15:15 | NUR ---
PT MEDICATED FOR PAIN AND N/.
[2018-09-05 15:27] LABS: CULTURE INDICATED? NO; MICROSCOPIC AUTO
[2018-09-05] MEDS ORDERED: OMNIPAQUE 350 MG/ML, 100ML BOTTLE ONE (15:42)
[2018-09-05] MEDS ORDERED: CEFOTETAN PMX 1GM/50ML 50 ML IV ONE (16:00)
[2018-09-05] MEDS ORDERED: METRONIDAZOLE PMX 500MG/100ML 100 ML IV ONE (16:00)
--- NOTE | 2018-09-05 16:25 | NUR ---
PT TO BE ADMITTED. AWARE OF POC. CONTINUES TO C/O SEVERE PAIN. STATES, "THE MORPHINE DIDN'T TOUCH ME."
[2018-09-05] MEDS ORDERED: METRONIDAZOLE PMX 500MG/100ML 100 ML ONE (16:26)
[2018-09-05] MEDS ORDERED: SODIUM CHLORIDE 0.9% 1,000 ML IV SCH (17:45)
[2018-09-05] MEDS ORDERED: DOCUSATE 100 MG CAPSULE PO PRN (18:00)
[2018-09-05] MEDS ORDERED: ENALAPRILAT 1.25 MG/ML, 2ML IVPush PRN (18:00)
[2018-09-05] MEDS ORDERED: ACETAMINOPHEN 325 MG TABLET PO PRN (18:00)
[2018-09-05] MEDS ORDERED: ONDANSETRON ODT 4 MG PO PRN (18:00)
[2018-09-05] MEDS ORDERED: MORPHINE SULFATE 4 MG/ML, 1ML IVPush PRN (18:00)
[2018-09-05] MEDS ORDERED: ONDANSETRON 2MG/ML, 2ML IVPush PRN (18:00)
[2018-09-05] MEDS ORDERED: LABETALOL 5MG/ML, 20ML IVPush PRN (18:00)
[2018-09-05] MEDS ORDERED: BISACODYL 10 MG SUPP PR PRN (18:00)
[2018-09-05] MEDS ORDERED: POLYETHYLENE GLYCOL 17 GM PACKET PO PRN (18:00)
[2018-09-05] MEDS ORDERED: GABAPENTIN 300 MG CAPSULE PO PRN (18:00)
[2018-09-05] MEDS ORDERED: HYDROcodone/APAP 5/325 TABLET PO PRN (18:00)
[2018-09-05] MEDS ORDERED: LIDODERM 5% PATCH TD PRN (18:00)
--- NOTE | 2018-09-05 18:10 | NUR ---
SKYLER MCKEON NOTIFIED PT THAT ANTIBIOTICS WILL BE DISCONTINUED.
--- NOTE | 2018-09-05 19:00 | NUR ---
assumed care of pt. report from Viki COOMBS. pt here for exaceebation of chronic abd pain. pt has had multiple doses of pain medication. resting in position of comfort. pt has not recently had any BM. no family at bedside. awaiting admit. updated on POC. no apparent distress
--- NOTE | 2018-09-05 19:05 | NUR ---
pt has no medications infusing at this time
--- NOTE | 2018-09-05 20:03 | NUR ---
bed assignment recieved. attempting to call report
--- NOTE | 2018-09-05 20:12 | NUR ---
report called to Rodrigue COOMBS at [phone]
--- NOTE | 2018-09-05 20:27 | NUR ---
pt to floor via gurney with transport
[2018-09-05 20:45] VITALS: BP 99/65
[2018-09-05] MEDS: KETOROLAC 30 MG/1 ML IV SCH (21:32)
[2018-09-05] MEDS: LACTOBACILLUS CHEW TABLET PO SCH (21:32)
[2018-09-05] MEDS: METOCLOPRAMIDE 5 MG/ML, 2ML IVPush SCH (21:32)
[2018-09-06] MEDS ORDERED: DIPHENHYDRAMINE 25 MG CAPSULE ONE (01:07)
[2018-09-06 01:20] VITALS: BP 99/65
[2018-09-06] MEDS ORDERED: DIPHENHYDRAMINE 25 MG CAPSULE PO ONE (01:30)
[2018-09-06] MEDS: METOCLOPRAMIDE 5 MG/ML, 2ML IVPush SCH ×2 (03:34→08:40)
[2018-09-06] MEDS: KETOROLAC 30 MG/1 ML IV SCH ×2 (03:34→08:40)
[2018-09-06 04:30] LABS: BASOPHILS # (AUTO) 0.04 x10^3/uL (0-0.1); BASOPHILS % (AUTO) 1 % (0-1); EOSINOPHILS # (AUTO) 0.26 x10^3/uL (0-0.4); EOSINOPHILS % (AUTO) 4 % (1-7); LYMPHOCYTES # (AUTO) 1.98 x10^3/uL (1-3.4); LYMPHOCYTES % (AUTO) 34 % (22-44); MD NO; MEAN CORPUSCULAR HEMOGLOBIN 31.2 pg (27.0-34.8); MEAN CORPUSCULAR HGB CONC 34.5 g/dL (32.4-35.8); MEAN CORPUSCULAR VOLUME 90.4 fL (80-100); MEAN PLATELET VOLUME 8.4 fL (7.4-10.4); MONOCYTES # (AUTO) 0.46 x10^3/uL (0.2-0.8); MONOCYTES % (AUTO) 8 % (2-9); NEUTROPHILS # (AUTO) 3.09 x10^3/uL (1.8-6.8); NEUTROPHILS % (AUTO) 53 % (42-75); PLATELET COUNT 260 x10^3/uL (130-400); RED BLOOD COUNT 3.46 x10^6/uL (3.82-5.3); RED CELL DISTRIBUTION WIDTH 13.3 % (9.6-15.2)
[2018-09-06 04:39] LABS: ALBUMIN 3.1 g/dL (3.4-5.0); ANION GAP 9 mmol/L (5-15); CALCIUM 7.9 mg/dL (8.5-10.1); CHLORIDE 110 mmol/L (98-107)
[2018-09-06 04:43] LABS: ALANINE AMINOTRANSFERASE 18 U/L (12-78); ALKALINE PHOSPHATASE 55 U/L (45-117); BILIRUBIN,TOTAL 0.6 mg/dL (0.2-1.0); CREATININE 0.71 mg/dL (0.55-1.02); TOTAL PROTEIN 5.7 g/dL (6.4-8.2)
[2018-09-06] MEDS: LACTOBACILLUS CHEW TABLET PO SCH ×2 (06:30→11:10)
[2018-09-06 08:18] VITALS: BP 97/51
[2018-09-06] MEDS ORDERED: OMEPRAZOLE 20 MG CAPSULE.DR PO SCH (09:00)
[2018-09-06 12:40] VITALS: BP 99/64
== END 2018-09-06 14:14 | disposition home or self-care (01) ==
LOC: ED 13:55 → EDIP 15:57 → INTOOBSV 15:57 → 4NOR 20:40
PROVIDERS: ADMIT Hospitalist; ATTEND Hospitalist
DX: K52.9 Noninfective gastroenteritis and colitis, unspecified (principal); K21.9 Gastro-esophageal reflux disease without esophagitis; K27.9 Peptic ulcer, site unspecified, unspecified as acute or chronic, without hemorrhage or perforation; I10 Essential (primary) hypertension; E78.5 Hyperlipidemia, unspecified; F32.9 Major depressive disorder, single episode, unspecified; I48.91 Unspecified atrial fibrillation; F11.20 Opioid dependence, uncomplicated; Z87.891 Personal history of nicotine dependence; Z87.11 Personal history of peptic ulcer disease; Z82.49 Family history of ischemic heart disease and other diseases of the circulatory system; Z76.5 Malingerer [conscious simulation]; Z83.3 Family history of diabetes mellitus
CPT/HCPCS: 36415; 36430; 74177; 80053; 81001; 83605; 83735; 84100; 84145; 85025; 85610; 87324; 89055; 96361; 96365; 96375; 96376; 99284; G0378; J1885; J2405; J2765; J7030; Q0162; Q0163; Q9967; 96366

== ENCOUNTER → 2018-11-08 | Outpatient (CLI) | payer MEDICARE, MEDICAID | END | disposition home or self-care (01) | LOC: RAD 07:19 | PROVIDERS: ATTEND Internal Medicine Gastroenterology | DX: K57.30 Diverticulosis of large intestine without perforation or abscess without bleeding (principal); K92.1 Melena; Z88.0 Allergy status to penicillin | CPT/HCPCS: 74270 ==

== ENCOUNTER 2018-11-16 08:44 | Emergency (ER) | payer MEDICARE, MEDICAID ==
[~2018-11-16] VITALS: Ht 160 cm; Wt 74.0 kg
[2018-11-16] MEDS ORDERED: ONDANSETRON ODT 4 MG PO ONE (09:30)
[2018-11-16] MEDS ORDERED: HYDROmorphone 1 MG/ML, 1ML IM ONE (09:30)
[2018-11-16] MEDS ORDERED: ONDANSETRON ODT 4 MG ONE (10:13)
[2018-11-16] MEDS ORDERED: HYDROmorphone 1 MG/ML, 1ML ONE (10:14)
[2018-11-16 11:45] VITALS: BP 146/92
--- NOTE | 2018-11-16 11:47 | NUR ---
Patient/Caregiver given discharge instructions and they have confirmed that they understand the instructions. Patient ambulatory with steady limping gait. pain 03/05
== END 2018-11-16 11:48 | disposition home or self-care (01) ==
LOC: ED 09:31
DX: S39.012A Strain of muscle, fascia and tendon of lower back, initial encounter (principal); S30.0XXA Contusion of lower back and pelvis, initial encounter; M51.36 Other intervertebral disc degeneration, lumbar region; G93.5 Compression of brain; K21.9 Gastro-esophageal reflux disease without esophagitis; I48.91 Unspecified atrial fibrillation; I10 Essential (primary) hypertension; E78.5 Hyperlipidemia, unspecified; F32.9 Major depressive disorder, single episode, unspecified; M54.9 Dorsalgia, unspecified; G89.29 Other chronic pain; Z87.891 Personal history of nicotine dependence; Z88.0 Allergy status to penicillin; X58.XXXA Exposure to other specified factors, initial encounter; Y93.89 Activity, other specified; Y92.89 Other specified places as the place of occurrence of the external cause; Y99.8 Other external cause status
CPT/HCPCS: 70450; 72110; 73502; 96372; 99284; J1170

== ENCOUNTER 2018-11-23 18:36 | Emergency (ER) | payer MEDICARE, MEDICAID ==
[~2018-11-23] VITALS: Ht 160 cm; Wt 78.0 kg
[2018-11-23 19:26] LABS: BASOPHILS # (AUTO) 0.02 x10^3/uL (0-0.1); BASOPHILS % (AUTO) 0 % (0-1); EOSINOPHILS % (AUTO) 3 % (1-7); LYMPHOCYTES # (AUTO) 1.54 x10^3/uL (1-3.4); LYMPHOCYTES % (AUTO) 24 % (22-44); MD NO; MEAN CORPUSCULAR HEMOGLOBIN 30.1 pg (27.0-34.8); MEAN CORPUSCULAR HGB CONC 33.8 g/dL (32.4-35.8); MEAN CORPUSCULAR VOLUME 89.1 fL (80-100); MEAN PLATELET VOLUME 8.1 fL (7.4-10.4); MONOCYTES # (AUTO) 0.31 x10^3/uL (0.2-0.8); MONOCYTES % (AUTO) 5 % (2-9); NEUTROPHILS # (AUTO) 4.21 x10^3/uL (1.8-6.8); NEUTROPHILS % (AUTO) 67 % (42-75); PLATELET COUNT 306 x10^3/uL (130-400); RED BLOOD COUNT 4.35 x10^6/uL (3.82-5.3); RED CELL DISTRIBUTION WIDTH 14.6 % (9.6-15.2)
[2018-11-23 19:34] LABS: ALANINE AMINOTRANSFERASE 35 U/L (12-78); ALBUMIN 3.9 g/dL (3.4-5.0); ANION GAP 4 mmol/L (5-15); CALCIUM 8.6 mg/dL (8.5-10.1); CHLORIDE 114 mmol/L (98-107); CREATININE 0.83 mg/dL (0.55-1.02)
[2018-11-23 19:36] LABS: ALKALINE PHOSPHATASE 75 U/L (45-117); BILIRUBIN,TOTAL 0.3 mg/dL (0.2-1.0)
--- NOTE | 2018-11-23 19:55 | NUR ---
Bedside SBAR report received from RNViri. Pt resting on gurney, IV being placed. Pt c/o abdominal pain, requesting pain meds at this time.
[2018-11-23] MEDS ORDERED: ONDANSETRON 2MG/ML, 2ML IVPush ONE (20:00)
[2018-11-23] MEDS ORDERED: MORPHINE SULFATE 4 MG/ML, 1ML IVPush PRN (20:00)
--- NOTE | 2018-11-23 20:03 | NUR ---
Pt back to room from imaging.
[2018-11-23] MEDS ORDERED: MORPHINE SULFATE 4 MG/ML, 1ML ONE (20:10)
[2018-11-23] MEDS ORDERED: ONDANSETRON 2MG/ML, 2ML ONE (20:10)
--- NOTE | 2018-11-23 20:19 | NUR ---
Pt medicated per MAR. Pt remains on monitors, VSS.
[2018-11-23 20:20] VITALS: BP 117/65
--- NOTE | 2018-11-23 21:03 | NUR ---
Pt up to bathroom, no assistance required. Urine sample collected and sent to lab.
[2018-11-23 21:15] LABS: MICROSCOPIC NOT IND
--- NOTE | 2018-11-23 21:15 | NUR ---
Patient/Caregiver given discharge instructions and they have confirmed that they understand the instructions. Patient ambulatory with steady gait.
[2018-11-23 21:30] LABS: CULTURE INDICATED? NO
[2018-11-23] MEDS ORDERED: OMNIPAQUE 350 MG/ML, 100ML BOTTLE ONE (22:34)
== END 2018-11-23 21:18 | disposition home or self-care (01) ==
LOC: ED 19:46
DX: K59.00 Constipation, unspecified (principal); I10 Essential (primary) hypertension; R11.2 Nausea with vomiting, unspecified; R63.0 Anorexia; Z87.11 Personal history of peptic ulcer disease; Z98.51 Tubal ligation status; Z90.89 Acquired absence of other organs
CPT/HCPCS: 36415; 74177; 80053; 81003; 83690; 85025; 86850; 86900; 96374; 96375; 99284; J2405; Q9967

== ENCOUNTER 2018-12-11 18:22 | Inpatient (IN) | payer MEDICARE, MEDICAID ==
[~2018-12-11] VITALS: Ht 157.5 cm; Wt 74.5 kg
--- NOTE | 2018-12-11 18:31 | NUR ---
BIB [facility]. C/O N/V and ABD pain. Saw GI yesterday, but reason for visit is unclear. Patient is poor historian. Placed on NIBP and pulse ox. Will continue to monitor.
[2018-12-11] MEDS ORDERED: PROMETHAZINE 25 MG/ML, 1ML IM ONE (19:00)
[2018-12-11 19:18] LABS: BASOPHILS # (AUTO) 0.03 x10^3/uL (0-0.1); BASOPHILS % (AUTO) 0 % (0-1); EOSINOPHILS # (AUTO) 0.16 x10^3/uL (0-0.4); EOSINOPHILS % (AUTO) 2 % (1-7); LYMPHOCYTES # (AUTO) 1.55 x10^3/uL (1-3.4); LYMPHOCYTES % (AUTO) 21 % (22-44); MD NO; MEAN CORPUSCULAR HEMOGLOBIN 30.1 pg (27.0-34.8); MEAN CORPUSCULAR HGB CONC 33.7 g/dL (32.4-35.8); MEAN CORPUSCULAR VOLUME 89.3 fL (80-100); MEAN PLATELET VOLUME 8.6 fL (7.4-10.4); MONOCYTES # (AUTO) 0.47 x10^3/uL (0.2-0.8); MONOCYTES % (AUTO) 6 % (2-9); NEUTROPHILS # (AUTO) 5.16 x10^3/uL (1.8-6.8); NEUTROPHILS % (AUTO) 70 % (42-75); PLATELET COUNT 272 x10^3/uL (130-400); RED CELL DISTRIBUTION WIDTH 14.9 % (9.6-15.2)
[2018-12-11] MEDS ORDERED: PROMETHAZINE 25 MG/ML, 1ML ONE (19:21)
[2018-12-11] MEDS ORDERED: MORPHINE SULFATE 4 MG/ML, 1ML ONE ×2 (19:21→21:27)
[2018-12-11] MEDS: MORPHINE SULFATE 4 MG/ML, 1ML IVPush PRN ×2 (19:23→21:31)
[2018-12-11 19:29] LABS: ALANINE AMINOTRANSFERASE 25 U/L (12-78); ALBUMIN 4.2 g/dL (3.4-5.0); ANION GAP 7 mmol/L (5-15); CALCIUM 8.7 mg/dL (8.5-10.1); CHLORIDE 111 mmol/L (98-107)
--- NOTE | 2018-12-11 19:31 | NUR ---
C/O N/V and pain. Phenergan and morphine admin. No other needs at this time.
[2018-12-11 19:34] LABS: ALKALINE PHOSPHATASE 77 U/L (45-117); BILIRUBIN,TOTAL 0.4 mg/dL (0.2-1.0); CREATININE 0.92 mg/dL (0.55-1.02); TOTAL PROTEIN 7.2 g/dL (6.4-8.2); TROPONIN I < 0.015 ng/mL (0.000-0.045)
[2018-12-11 19:43] LABS: MICROSCOPIC NOT IND
[2018-12-11 19:56] LABS: CULTURE INDICATED? NO
--- NOTE | 2018-12-11 20:00 | NUR ---
REPORT FROM CORIN SELF. [facility] BP/SPO2 MONITORING IN PLACE. VS WNL. PT UPDATED TO POC (CT/RESULTS/RECHECK) AND DEMONSTRATES UNDERSTANDING.
--- NOTE | 2018-12-11 20:40 | NUR ---
PT REPORTS 'DRY, SORE THROAT'. PT REQUESTING PO FLUIDS. RN EDUCATED REGARDING PO STATUS UNTIL CT RESULTED AND DEMONSTRATES UNDERSTANDING. PT TO CT AT THIS TIME
[2018-12-11] MEDS ORDERED: OMNIPAQUE 350 MG/ML, 100ML BOTTLE ONE (20:57)
--- NOTE | 2018-12-11 21:12 | NUR ---
PT RETURNED FROM CT. NAD NOTED. PT REPORTS LLQ PAIN, DENIES NEED FOR FURTHER PAIN MEDICATIONS. PT CONTINUES TO CO 'SORE THROAT'; AIRWAY PATENT, PT MANAGING OWN SECRETIONS. SPO2 >90% ON RA.
--- NOTE | 2018-12-11 21:32 | NUR ---
PT MEDCIATED PER EMAR FOR 05/06 ABD PAIN
[2018-12-11] MEDS ORDERED: MORPHINE SULFATE 4 MG/ML, 1ML IVPush PRN (22:00)
--- NOTE | 2018-12-11 22:06 | NUR ---
PT REPORTS IMPROVEMENT IN PAIN WTH MEDICATIONS. PT UPDATED TO POC (ADMIT) AND DEMONSTRATES UNDERSTANDING.
[2018-12-11] MEDS ORDERED: SODIUM CHLORIDE 0.9% 1,000 ML IV SCH (22:20)
--- NOTE | 2018-12-11 22:27 | NUR ---
REPORT TO CORIN ARRINGTON ON FLOOR
[2018-12-11] MEDS ORDERED: ONDANSETRON 2MG/ML, 2ML IVPush PRN (22:30)
[2018-12-11] MEDS ORDERED: hydrALAzine 20 MG/ML, 1ML IVPush PRN (22:30)
[2018-12-11] MEDS: METRONIDAZOLE PMX 500MG/100ML 100 ML IV SCH (23:20)
[2018-12-12 02:00] VITALS: BP 109/73
[2018-12-12 04:23] VITALS: BP 135/74
[2018-12-12 04:56] LABS: BASOPHILS # (AUTO) 0.03 x10^3/uL (0-0.1); BASOPHILS % (AUTO) 1 % (0-1); EOSINOPHILS # (AUTO) 0.16 x10^3/uL (0-0.4); EOSINOPHILS % (AUTO) 3 % (1-7); LYMPHOCYTES # (AUTO) 2.04 x10^3/uL (1-3.4); LYMPHOCYTES % (AUTO) 39 % (22-44); MD NO; MEAN CORPUSCULAR HEMOGLOBIN 30.1 pg (27.0-34.8); MEAN CORPUSCULAR HGB CONC 33.9 g/dL (32.4-35.8); MEAN CORPUSCULAR VOLUME 88.9 fL (80-100); MEAN PLATELET VOLUME 8.4 fL (7.4-10.4); MONOCYTES # (AUTO) 0.41 x10^3/uL (0.2-0.8); MONOCYTES % (AUTO) 8 % (2-9); NEUTROPHILS # (AUTO) 2.65 x10^3/uL (1.8-6.8); NEUTROPHILS % (AUTO) 50 % (42-75); PLATELET COUNT 234 x10^3/uL (130-400); RED BLOOD COUNT 3.87 x10^6/uL (3.82-5.3); RED CELL DISTRIBUTION WIDTH 14.8 % (9.6-15.2)
[2018-12-12 05:05] LABS: CHLORIDE 116 mmol/L (98-107)
[2018-12-12 05:16] LABS: ALANINE AMINOTRANSFERASE 21 U/L (12-78); ALBUMIN 3.6 g/dL (3.4-5.0); ALKALINE PHOSPHATASE 66 U/L (45-117); ANION GAP 5 mmol/L (5-15); BILIRUBIN,TOTAL 0.5 mg/dL (0.2-1.0); CALCIUM 8.1 mg/dL (8.5-10.1); CREATININE 0.78 mg/dL (0.55-1.02)
[2018-12-12] MEDS: MORPHINE SULFATE 4 MG/ML, 1ML IVPush PRN ×4 (05:37→20:43)
[2018-12-12] MEDS: OMEPRAZOLE 20 MG CAPSULE.DR PO SCH (05:37)
[2018-12-12] MEDS: LACTOBACILLUS CHEW TABLET PO SCH ×4 (05:37→20:43)
[2018-12-12] MEDS: LEVOFLOXACIN/PMX 750MG/150ML 150 ML IV SCH (05:37)
[2018-12-12 07:17] VITALS: BP 97/64
[2018-12-12] MEDS ORDERED: POTASSIUM CHLORIDE 60 MEQ in SODIUM CHLORIDE 0.9% 1,000 ML IV ONE (08:00)
[2018-12-12] MEDS ORDERED: GABAPENTIN 100 MG CAPSULE ONE (08:03)
[2018-12-12] MEDS: GABAPENTIN 100 MG CAPSULE PO PRN ×2 (08:07→20:43)
[2018-12-12] MEDS: METRONIDAZOLE PMX 500MG/100ML 100 ML IV SCH ×2 (08:08→16:22)
[2018-12-12] MEDS: METOCLOPRAMIDE 5 MG/ML, 2ML IVPush PRN ×2 (08:09→20:43)
[2018-12-12] MEDS: ENOXAPARIN 40 MG/0.4 ML SQ SCH (08:09)
[2018-12-12 13:58] VITALS: BP 116/68
[2018-12-12 17:20] LABS: HCT (SEDRATE) 34.9 % (34.6-47.8)
[2018-12-12 19:00] VITALS: BP 105/66
[2018-12-12] MEDS: POTASSIUM CHLORIDE 10 MEQ in SODIUM CHLORIDE 0.45% 1,000 ML IV SCH (20:42)
[2018-12-13] MEDS: METRONIDAZOLE PMX 500MG/100ML 100 ML IV SCH ×3 (00:27→17:32)
[2018-12-13 02:28] VITALS: BP 110/70
[2018-12-13 05:20] LABS: BASOPHILS # (AUTO) 0.03 x10^3/uL (0-0.1); BASOPHILS % (AUTO) 1 % (0-1); EOSINOPHILS # (AUTO) 0.21 x10^3/uL (0-0.4); EOSINOPHILS % (AUTO) 5 % (1-7); LYMPHOCYTES # (AUTO) 1.74 x10^3/uL (1-3.4); LYMPHOCYTES % (AUTO) 41 % (22-44); MD NO; MEAN CORPUSCULAR HEMOGLOBIN 30.7 pg (27.0-34.8); MEAN CORPUSCULAR HGB CONC 34.2 g/dL (32.4-35.8); MEAN CORPUSCULAR VOLUME 89.7 fL (80-100); MEAN PLATELET VOLUME 8.7 fL (7.4-10.4); MONOCYTES # (AUTO) 0.29 x10^3/uL (0.2-0.8); MONOCYTES % (AUTO) 7 % (2-9); NEUTROPHILS # (AUTO) 1.94 x10^3/uL (1.8-6.8); NEUTROPHILS % (AUTO) 46 % (42-75); PLATELET COUNT 226 x10^3/uL (130-400); RED BLOOD COUNT 3.81 x10^6/uL (3.82-5.3); RED CELL DISTRIBUTION WIDTH 14.9 % (9.6-15.2)
[2018-12-13 05:21] LABS: ALBUMIN 3.3 g/dL (3.4-5.0); ANION GAP 5 mmol/L (5-15); CALCIUM 8.5 mg/dL (8.5-10.1); CHLORIDE 114 mmol/L (98-107)
[2018-12-13 05:26] LABS: ALANINE AMINOTRANSFERASE 23 U/L (12-78); ALKALINE PHOSPHATASE 42 U/L (45-117); BILIRUBIN,TOTAL 0.5 mg/dL (0.2-1.0); CREATININE 0.72 mg/dL (0.55-1.02); TOTAL PROTEIN 5.7 g/dL (6.4-8.2)
[2018-12-13] MEDS: MORPHINE SULFATE 4 MG/ML, 1ML IVPush PRN ×3 (05:48→21:27)
[2018-12-13] MEDS: LEVOFLOXACIN/PMX 750MG/150ML 150 ML IV SCH (05:48)
[2018-12-13] MEDS: OMEPRAZOLE 20 MG CAPSULE.DR PO SCH (05:49)
[2018-12-13] MEDS: LACTOBACILLUS CHEW TABLET PO SCH ×4 (05:49→21:27)
[2018-12-13 07:21] VITALS: BP 109/72
[2018-12-13] MEDS: ENOXAPARIN 40 MG/0.4 ML SQ SCH (08:14)
[2018-12-13] MEDS: GABAPENTIN 100 MG CAPSULE PO PRN ×2 (08:14→17:32)
[2018-12-13] MEDS: METOCLOPRAMIDE 5 MG/ML, 2ML IVPush PRN ×2 (08:14→21:27)
[2018-12-13 12:46] VITALS: BP 127/84
[2018-12-13] MEDS: POTASSIUM CHLORIDE 10 MEQ in SODIUM CHLORIDE 0.45% 1,000 ML IV SCH (17:32)
[2018-12-13 18:55] VITALS: BP 139/87
[2018-12-13 19:10] VITALS: BP 117/74
[2018-12-14] MEDS: METRONIDAZOLE PMX 500MG/100ML 100 ML IV SCH ×2 (00:31→08:18)
[2018-12-14 01:50] VITALS: BP 118/77
[2018-12-14 05:39] LABS: CHLORIDE 114 mmol/L (98-107)
[2018-12-14] MEDS: POTASSIUM CHLORIDE 10 MEQ in SODIUM CHLORIDE 0.45% 1,000 ML IV SCH (05:39)
[2018-12-14] MEDS: OMEPRAZOLE 20 MG CAPSULE.DR PO SCH (05:39)
[2018-12-14] MEDS: LACTOBACILLUS CHEW TABLET PO SCH ×4 (05:39→22:26)
[2018-12-14 05:42] LABS: BASOPHILS # (AUTO) 0.03 x10^3/uL (0-0.1); BASOPHILS % (AUTO) 1 % (0-1); EOSINOPHILS # (AUTO) 0.24 x10^3/uL (0-0.4); EOSINOPHILS % (AUTO) 5 % (1-7); LYMPHOCYTES # (AUTO) 1.71 x10^3/uL (1-3.4); LYMPHOCYTES % (AUTO) 39 % (22-44); MD NO; MEAN CORPUSCULAR HEMOGLOBIN 29.5 pg (27.0-34.8); MEAN CORPUSCULAR HGB CONC 32.9 g/dL (32.4-35.8); MEAN CORPUSCULAR VOLUME 89.8 fL (80-100); MEAN PLATELET VOLUME 8.5 fL (7.4-10.4); MONOCYTES # (AUTO) 0.29 x10^3/uL (0.2-0.8); MONOCYTES % (AUTO) 7 % (2-9); NEUTROPHILS # (AUTO) 2.17 x10^3/uL (1.8-6.8); NEUTROPHILS % (AUTO) 49 % (42-75); PLATELET COUNT 213 x10^3/uL (130-400); RED BLOOD COUNT 3.87 x10^6/uL (3.82-5.3)
[2018-12-14] MEDS: LEVOFLOXACIN/PMX 750MG/150ML 150 ML IV SCH (05:43)
[2018-12-14 06:08] LABS: ALANINE AMINOTRANSFERASE 19 U/L (12-78); ALBUMIN 3.5 g/dL (3.4-5.0); ALKALINE PHOSPHATASE 54 U/L (45-117); ANION GAP 7 mmol/L (5-15); BILIRUBIN,TOTAL 0.5 mg/dL (0.2-1.0); CALCIUM 8.7 mg/dL (8.5-10.1); CREATININE 0.71 mg/dL (0.55-1.02); TOTAL PROTEIN 5.8 g/dL (6.4-8.2)
[2018-12-14] MEDS: ENOXAPARIN 40 MG/0.4 ML SQ SCH (08:18)
[2018-12-14] MEDS: METOCLOPRAMIDE 5 MG/ML, 2ML IVPush PRN ×2 (08:18→17:42)
[2018-12-14] MEDS: MORPHINE SULFATE 4 MG/ML, 1ML IVPush PRN ×2 (08:19→17:42)
[2018-12-14 08:58] VITALS: BP 137/84
[2018-12-14 12:47] VITALS: BP 119/78
[2018-12-14] MEDS ORDERED: PROCHLORPERAZINE 5 MG/ML, 2ML IM PRN (13:30)
[2018-12-14 18:37] VITALS: BP 122/75
[2018-12-14 19:50] VITALS: BP 112/71
[2018-12-14] MEDS: GABAPENTIN 100 MG CAPSULE PO PRN (22:26)
[2018-12-15 00:20] VITALS: BP 139/89
[2018-12-15] MEDS: MORPHINE SULFATE 4 MG/ML, 1ML IVPush PRN ×2 (00:32→09:53)
[2018-12-15 05:58] LABS: CHLORIDE 113 mmol/L (98-107)
[2018-12-15 06:08] LABS: ANION GAP 8 mmol/L (5-15); CREATININE 0.79 mg/dL (0.55-1.02)
[2018-12-15] MEDS: OMEPRAZOLE 20 MG CAPSULE.DR PO SCH (06:14)
[2018-12-15] MEDS: LACTOBACILLUS CHEW TABLET PO SCH ×2 (06:14→11:59)
[2018-12-15 07:16] VITALS: BP 103/70
[2018-12-15] MEDS: POTASSIUM CHLORIDE 10 MEQ in SODIUM CHLORIDE 0.45% 1,000 ML IV SCH ×2 (09:54→14:40)
[2018-12-15] MEDS: ENOXAPARIN 40 MG/0.4 ML SQ SCH (09:54)
[2018-12-15 13:35] VITALS: BP 108/81
[2018-12-15] MEDS ORDERED: DOCUSATE 100 MG CAPSULE PO SCH (21:00)
== END 2018-12-15 16:40 | disposition home or self-care (01) | DRG 394 ==
LOC: ED 21:57 → EDIP 22:20 → 3NE 22:50
PROVIDERS: ADMIT Family Medicine; ATTEND Family Medicine
DX: K55.9 Vascular disorder of intestine, unspecified (principal); E87.0 Hyperosmolality and hypernatremia; K52.9 Noninfective gastroenteritis and colitis, unspecified; E86.0 Dehydration; K21.9 Gastro-esophageal reflux disease without esophagitis; I48.91 Unspecified atrial fibrillation; I10 Essential (primary) hypertension; G89.29 Other chronic pain; E87.6 Hypokalemia; E78.5 Hyperlipidemia, unspecified; Z87.19 Personal history of other diseases of the digestive system; Z86.19 Personal history of other infectious and parasitic diseases; Z79.01 Long term (current) use of anticoagulants; Z90.49 Acquired absence of other specified parts of digestive tract; Z98.51 Tubal ligation status
CPT/HCPCS: 36415; 74177; 80048; 80053; 81003; 83605; 83690; 84484; 85025; 85651; 86140; 87040; 96372; 96374; 99285; G0378; J1650; J1956; J2550; J3480; Q9967; J2765; J7030

== ENCOUNTER 2018-12-27 16:36 | Inpatient (IN) | payer MEDICARE, MEDICAID ==
[~2018-12-27] VITALS: Ht 160 cm; Wt 76.7 kg
--- NOTE | 2018-12-27 18:35 | NUR ---
TO ROOM FROM LOBBY. NAD.
--- NOTE | 2018-12-27 19:10 | NUR ---
"IM REALLY WEAK", C/O MID ABD PAIN, BLOODY STOOL AND N/V SINCE YESTERDAY, HX OF SAME. HAS GI MD ALREADY
[2018-12-27] MEDS ORDERED: ONDANSETRON 2MG/ML, 2ML ONE (19:29)
[2018-12-27] MEDS ORDERED: MORPHINE SULFATE 4 MG/ML, 1ML ONE ×2 (19:29→21:43)
[2018-12-27] MEDS ORDERED: METOCLOPRAMIDE 5 MG/ML, 2ML IVPush ONE (19:30)
[2018-12-27] MEDS ORDERED: SODIUM CHLORIDE FLUSH 10ML SYR IVF ONE (19:30)
[2018-12-27] MEDS: MORPHINE SULFATE 4 MG/ML, 1ML IVPush PRN ×2 (19:45→21:55)
[2018-12-27] MEDS ORDERED: PROCHLORPERAZINE 5 MG/ML, 2ML ONE (19:54)
[2018-12-27] MEDS ORDERED: OMNIPAQUE 350 MG/ML, 100ML BOTTLE ONE (20:00)
[2018-12-27] MEDS ORDERED: METOCLOPRAMIDE 5 MG/ML, 2ML ONE (20:05)
[2018-12-27 20:15] LABS: MICROSCOPIC INDICATED
[2018-12-27 20:18] LABS: BASOPHILS # (AUTO) 0.04 x10^3/uL (0-0.1); BASOPHILS % (AUTO) 0 % (0-1); EOSINOPHILS # (AUTO) 0.04 x10^3/uL (0-0.4); EOSINOPHILS % (AUTO) 1 % (1-7); LYMPHOCYTES # (AUTO) 1.39 x10^3/uL (1-3.4); LYMPHOCYTES % (AUTO) 14 % (22-44); MD NO; MEAN CORPUSCULAR HGB CONC 33.7 g/dL (32.4-35.8); MEAN CORPUSCULAR VOLUME 89.1 fL (80-100); MEAN PLATELET VOLUME 8.2 fL (7.4-10.4); MONOCYTES # (AUTO) 0.45 x10^3/uL (0.2-0.8); MONOCYTES % (AUTO) 5 % (2-9); NEUTROPHILS # (AUTO) 7.82 x10^3/uL (1.8-6.8); NEUTROPHILS % (AUTO) 80 % (42-75); PLATELET COUNT 318 x10^3/uL (130-400); RED BLOOD COUNT 4.32 x10^6/uL (3.82-5.3); RED CELL DISTRIBUTION WIDTH 14.8 % (9.6-15.2)
[2018-12-27 20:28] LABS: CULTURE INDICATED? YES
[2018-12-27 20:29] LABS: ALANINE AMINOTRANSFERASE 28 U/L (12-78); ANION GAP 5 mmol/L (5-15); CALCIUM 8.9 mg/dL (8.5-10.1); CHLORIDE 114 mmol/L (98-107); CREATININE 0.86 mg/dL (0.55-1.02)
--- NOTE | 2018-12-27 20:31 | NUR ---
Patient sleeping comfortably on gurnery Vitals stable in monitor Reports pain/nausea improved to 09/05 Updated on poc call moore in hand/side rails up
[2018-12-27 20:32] LABS: ALKALINE PHOSPHATASE 81 U/L (45-117); BILIRUBIN,TOTAL 0.5 mg/dL (0.2-1.0); TOTAL PROTEIN 7.3 g/dL (6.4-8.2)
--- NOTE | 2018-12-27 20:45 | NUR ---
to ct scan
--- NOTE | 2018-12-27 21:16 | NUR ---
report to magdalena craven
[2018-12-27] MEDS ORDERED: GOLYTELY 4,000ML ORAL.SOL PO ONE (22:00)
[2018-12-27] MEDS ORDERED: hydrALAzine 20 MG/ML, 1ML IVPush PRN (22:30)
[2018-12-27] MEDS ORDERED: LIDODERM 5% PATCH TD PRN (22:30)
[2018-12-27] MEDS ORDERED: POLYETHYLENE GLYCOL 17 GM PACKET PO ONE (22:30)
[2018-12-27] MEDS ORDERED: morphine SULFATE 10 MG/ML, 1ML IVPush PRN (22:30)
[2018-12-27] MEDS: PANTOPRAZOLE 40 MG IV IVPush SCH (22:30)
[2018-12-27 22:54] VITALS: BP 126/75
[2018-12-28 00:30] VITALS: BP 119/60
[2018-12-28] MEDS: PROMETHAZINE 25 MG/ML, 1ML IM PRN (00:36)
[2018-12-28] MEDS ORDERED: OMEPRAZOLE 20 MG CAPSULE.DR PO SCH (06:00)
[2018-12-28] MEDS ORDERED: LACTOBACILLUS CHEW TABLET PO SCH (06:00)
[2018-12-28 06:19] LABS: BASOPHILS # (AUTO) 0.06 x10^3/uL (0-0.1); BASOPHILS % (AUTO) 1 % (0-1); EOSINOPHILS # (AUTO) 0.16 x10^3/uL (0-0.4); EOSINOPHILS % (AUTO) 2 % (1-7); LYMPHOCYTES # (AUTO) 2.08 x10^3/uL (1-3.4); LYMPHOCYTES % (AUTO) 29 % (22-44); MD NO; MEAN CORPUSCULAR HEMOGLOBIN 30.4 pg (27.0-34.8); MEAN CORPUSCULAR VOLUME 89.4 fL (80-100); MEAN PLATELET VOLUME 8.2 fL (7.4-10.4); MONOCYTES # (AUTO) 0.52 x10^3/uL (0.2-0.8); MONOCYTES % (AUTO) 7 % (2-9); NEUTROPHILS # (AUTO) 4.25 x10^3/uL (1.8-6.8); NEUTROPHILS % (AUTO) 60 % (42-75); PLATELET COUNT 293 x10^3/uL (130-400); RED BLOOD COUNT 3.98 x10^6/uL (3.82-5.3); RED CELL DISTRIBUTION WIDTH 14.6 % (9.6-15.2)
[2018-12-28 06:26] LABS: ANION GAP 7 mmol/L (5-15); CALCIUM 8.7 mg/dL (8.5-10.1); CHLORIDE 110 mmol/L (98-107); CREATININE 0.67 mg/dL (0.55-1.02)
[2018-12-28 07:36] VITALS: BP 111/60
[2018-12-28] MEDS: PANTOPRAZOLE 40 MG IV IVPush SCH (09:09)
[2018-12-28] MEDS ORDERED: PROPOFOL 10 MG/ML, 20ML ONE ×2 (11:26→11:58)
[2018-12-28] MEDS ORDERED: LABETALOL 5MG/ML, 20ML IV PRN (12:00)
[2018-12-28] MEDS ORDERED: MORPHINE SULFATE 4 MG/ML, 1ML IVPush PRN (12:00)
[2018-12-28] MEDS ORDERED: FENTANYL PF 100 MCG/2ML IV PRN (12:00)
[2018-12-28] MEDS ORDERED: ONDANSETRON ODT 8 MG PO PRN (12:00)
[2018-12-28] MEDS ORDERED: PROMETHAZINE 25 MG/ML, 1ML IM PRN ×2 (12:00)
[2018-12-28] MEDS ORDERED: MEPERIDINE/PF 25MG/0.5ML IVPush PRN (12:00)
[2018-12-28] MEDS ORDERED: hydrALAzine 20 MG/ML, 1ML IV PRN (12:00)
[2018-12-28] MEDS ORDERED: HYDROmorphone 2 MG/ML, 1ML IVPush PRN (12:00)
[2018-12-28] MEDS ORDERED: ONDANSETRON 2MG/ML, 2ML IV PRN (12:00)
[2018-12-28] MEDS ORDERED: PROMETHAZINE 25 MG/ML, 1ML IV PRN (12:00)
[2018-12-28] MEDS ORDERED: PROMETHAZINE 25 MG SUPP PR PRN (12:00)
[2018-12-28] MEDS ORDERED: PROMETHAZINE 12.5 MG SUPP PR PRN (12:00)
[2018-12-28] MEDS ORDERED: OXYcodone 5 MG/5 ML ORAL.SOL UDC PO PRN (12:00)
[2018-12-28 13:39] VITALS: BP 105/68
[2018-12-28] MEDS: metroNIDAZOLE 500 MG TABLET PO SCH ×2 (14:25→21:27)
[2018-12-28] MEDS: HYDROcodone/APAP 5/325 TABLET PO PRN ×2 (15:47→20:32)
[2018-12-28 18:53] VITALS: BP 113/69
[2018-12-28] MEDS: CIPROFLOXACIN 500 MG TABLET PO SCH (20:32)
[2018-12-29 00:47] VITALS: BP 104/63
[2018-12-29] MEDS: HYDROcodone/APAP 5/325 TABLET PO PRN ×3 (05:27→22:34)
[2018-12-29] MEDS: metroNIDAZOLE 500 MG TABLET PO SCH ×3 (05:27→22:32)
[2018-12-29 06:11] LABS: OCCULT BLOOD POSITIVE (NEGATIVE)
[2018-12-29 07:01] LABS: CLOSTRIDIUM DIFFICILE ANTIGEN NEGATIVE; CLOSTRIDIUM DIFFICILE TOXIN NEGATIVE (Negative)
[2018-12-29 07:37] VITALS: BP 114/71
[2018-12-29] MEDS: PANTOPRAZOLE 40 MG IV IVPush SCH (08:04)
[2018-12-29] MEDS: CIPROFLOXACIN 500 MG TABLET PO SCH ×2 (08:04→20:58)
[2018-12-29] MEDS: morphine SULFATE 10 MG/ML, 1ML IVPush PRN ×2 (12:00→19:28)
[2018-12-29 13:43] VITALS: BP 125/68
[2018-12-29 14:47] LABS: ANION GAP 5 mmol/L (5-15); CALCIUM 8.5 mg/dL (8.5-10.1); CHLORIDE 113 mmol/L (98-107); CREATININE 0.86 mg/dL (0.55-1.02)
[2018-12-29 14:56] LABS: MEAN CORPUSCULAR HEMOGLOBIN 29.1 pg (27.0-34.8); MEAN CORPUSCULAR HGB CONC 32.4 g/dL (32.4-35.8); MEAN CORPUSCULAR VOLUME 89.7 fL (80-100); MEAN PLATELET VOLUME 8.1 fL (7.4-10.4); PLATELET COUNT 264 x10^3/uL (130-400); RED BLOOD COUNT 3.86 x10^6/uL (3.82-5.3); RED CELL DISTRIBUTION WIDTH 14.7 % (9.6-15.2)
[2018-12-29 15:21] LABS: BASOPHILS # (AUTO) 0.02 x10^3/uL (0-0.1); BASOPHILS % (AUTO) 0 % (0-1); EOSINOPHILS # (AUTO) 0.06 x10^3/uL (0-0.4); EOSINOPHILS % (AUTO) 1 % (1-7); LYMPHOCYTES # (AUTO) 1.36 x10^3/uL (1-3.4); LYMPHOCYTES % (AUTO) 28 % (22-44); MD SCAN; MONOCYTES # (AUTO) 0.25 x10^3/uL (0.2-0.8); MONOCYTES % (AUTO) 5 % (2-9); NEUTROPHILS # (AUTO) 3.25 x10^3/uL (1.8-6.8); NEUTROPHILS % (AUTO) 66 % (42-75)
[2018-12-29 19:25] VITALS: BP 120/69
[2018-12-30 01:15] VITALS: BP 122/78
[2018-12-30] MEDS: morphine SULFATE 10 MG/ML, 1ML IVPush PRN ×3 (02:10→21:14)
[2018-12-30] MEDS: PANTOPROZOLE 40MG TABLET PO SCH (06:08)
[2018-12-30] MEDS: metroNIDAZOLE 500 MG TABLET PO SCH ×3 (06:08→22:52)
[2018-12-30] MEDS: CIPROFLOXACIN 500 MG TABLET PO SCH ×2 (08:16→21:00)
[2018-12-30] MEDS: HYDROcodone/APAP 5/325 TABLET PO PRN ×3 (08:16→16:42)
[2018-12-30] MEDS: PROMETHAZINE 25 MG/ML, 1ML IM PRN ×2 (08:59→20:16)
[2018-12-30 09:28] VITALS: BP 113/60
[2018-12-30 12:46] VITALS: BP 105/69
[2018-12-30 19:45] VITALS: BP 135/68
[2018-12-31 01:20] VITALS: BP 108/16
[2018-12-31] MEDS: morphine SULFATE 10 MG/ML, 1ML IVPush PRN ×2 (01:45→10:23)
[2018-12-31 05:49] LABS: ALBUMIN 3.5 g/dL (3.4-5.0); ANION GAP 7 mmol/L (5-15); CHLORIDE 112 mmol/L (98-107)
[2018-12-31 05:53] LABS: ALANINE AMINOTRANSFERASE 21 U/L (12-78); ALKALINE PHOSPHATASE 57 U/L (45-117); BILIRUBIN,TOTAL 0.5 mg/dL (0.2-1.0); TOTAL PROTEIN 6.3 g/dL (6.4-8.2)
[2018-12-31] MEDS: metroNIDAZOLE 500 MG TABLET PO SCH ×2 (06:17→15:04)
[2018-12-31] MEDS: PANTOPROZOLE 40MG TABLET PO SCH (06:17)
[2018-12-31 08:13] VITALS: BP 109/67
[2018-12-31] MEDS: HYDROcodone/APAP 5/325 TABLET PO PRN ×2 (08:41→15:04)
[2018-12-31] MEDS: CIPROFLOXACIN 500 MG TABLET PO SCH (08:42)
[2018-12-31 13:45] VITALS: BP 104/64
[2018-12-31] MEDS ORDERED: HYDR-3237 PO (15:51)
[2018-12-31] MEDS ORDERED: METR500T PO (15:51)
[2018-12-31] MEDS ORDERED: CIPR500T87 PO (15:51)
== END 2018-12-31 18:00 | disposition home or self-care (01) | DRG 385 ==
LOC: ED 19:06 → EDIP 21:53 → 3NE 22:36
PROVIDERS: ADMIT Internal Medicine; ATTEND Internal Medicine
PROC: 0DBN8ZX Excision of Sigmoid Colon, Via Natural or Artificial Opening Endoscopic, Diagnostic (ICD-10-PCS; principal; 2018-12-28 12:30)
DX: K51.911 Ulcerative colitis, unspecified with rectal bleeding (principal); K57.33 Diverticulitis of large intestine without perforation or abscess with bleeding; N39.0 Urinary tract infection, site not specified; K27.9 Peptic ulcer, site unspecified, unspecified as acute or chronic, without hemorrhage or perforation; D63.8 Anemia in other chronic diseases classified elsewhere; E78.5 Hyperlipidemia, unspecified; F32.9 Major depressive disorder, single episode, unspecified; I10 Essential (primary) hypertension; I48.91 Unspecified atrial fibrillation; K21.9 Gastro-esophageal reflux disease without esophagitis; G89.29 Other chronic pain; M25.519 Pain in unspecified shoulder; Z80.3 Family history of malignant neoplasm of breast; Z82.3 Family history of stroke; Z82.49 Family history of ischemic heart disease and other diseases of the circulatory system; Z86.19 Personal history of other infectious and parasitic diseases; Z87.891 Personal history of nicotine dependence; Z91.19 Patient's noncompliance with other medical treatment and regimen; Z90.49 Acquired absence of other specified parts of digestive tract; Z98.51 Tubal ligation status
CPT/HCPCS: 36415; 74177; 76700; 80048; 80053; 81001; 82272; 83690; 85025; 87086; 87324; 88305; 93005; 96374; 96375; 96376; G0378; J2550; J2704; Q9967; C9113; J2270; J2765

== ENCOUNTER 2019-02-13 06:06 | Inpatient (IN) | payer MEDICARE, MEDICAID ==
[~2019-02-13] VITALS: Ht 160 cm; Wt 87.0 kg
[~2019-02-13 06:06] MED LIST changes: +HYDR-3237 PO; +LACTATED RINGERS 1,000 ML IV SCH; +TEMA15CA PO
[2019-02-13] MEDS ORDERED: INDOCYANINE GREEN 25 MG VIAL ONE (06:44)
[2019-02-13] MEDS ORDERED: BUPIVACAINE/EPI 0.5% 1:200K ONE (06:44)
[2019-02-13] MEDS ORDERED: LACTATED RINGERS 1,000 ML IV SCH (06:49)
[2019-02-13] MEDS ORDERED: FENTANYL PF 250 MCG/5ML ONE (07:12)
[2019-02-13] MEDS ORDERED: MIDAZOLAM 1 MG/ML, 2ML ONE ×2 (07:12)
[2019-02-13] MEDS ORDERED: LIDOCAINE 2%, 6 ML JEL.PF.APP MM ONE (07:13)
[2019-02-13] MEDS ORDERED: DIAZEPAM 5 MG TABLET PO ONE (07:30)
[2019-02-13] MEDS ORDERED: ACETAMINOPHEN 500 MG TABLET PO ONE (07:30)
[2019-02-13] MEDS ORDERED: SCOPOLAMINE PATCH, 1.5MG PATCH.TD72 TD ONE (07:30)
[2019-02-13] MEDS ORDERED: GABAPENTIN 300 MG CAPSULE PO ONE (07:30)
[2019-02-13] MEDS ORDERED: hydrALAzine 20 MG/ML, 1ML IV PRN (08:30)
[2019-02-13] MEDS ORDERED: FENTANYL PF 100 MCG/2ML IV PRN (08:30)
[2019-02-13] MEDS ORDERED: MIDAZOLAM 1 MG/ML, 2ML IV PRN (08:30)
[2019-02-13] MEDS ORDERED: MEPERIDINE/PF 25MG/0.5ML IVPush PRN (08:30)
[2019-02-13] MEDS ORDERED: ALBUTEROL/IPRATROPIUM 2.5MG/0.5MG, 3 ML NPPB PRN (08:30)
[2019-02-13] MEDS ORDERED: DIAZEPAM 5 MG/ML, 2ML IVPush PRN (08:30)
[2019-02-13] MEDS ORDERED: METOPROLOL 1 MG/ML, 5ML IV PRN (08:30)
[2019-02-13] MEDS ORDERED: OXYcodone 5 MG/5 ML ORAL.SOL UDC PO PRN (08:30)
[2019-02-13] MEDS ORDERED: ONDANSETRON 2MG/ML, 2ML IV PRN (08:30)
[2019-02-13] MEDS ORDERED: PROMETHAZINE 25 MG/ML, 1ML IV PRN (08:30)
[2019-02-13] MEDS ORDERED: NEOSTIGMINE 1 MG/ML, 10ML ONE (09:12)
[2019-02-13] MEDS ORDERED: ONDANSETRON 2MG/ML, 2ML ONE (09:12)
[2019-02-13] MEDS ORDERED: DEXAMETHASONE 4 MG/ML, 1ML ONE (09:12)
[2019-02-13] MEDS ORDERED: PROPOFOL 10 MG/ML, 20ML ONE (09:12)
[2019-02-13] MEDS ORDERED: ROCURONIUM 10MG/ML,5ML ONE (09:12)
[2019-02-13] MEDS ORDERED: GLYCOPYRROLATE 0.2MG/1ML, 5ML ONE (09:12)
[2019-02-13] MEDS ORDERED: FENTANYL PF 100 MCG/2ML ONE (09:53)
[2019-02-13] MEDS ORDERED: HYDROmorphone 2 MG/ML, 1ML ONE (09:53)
[2019-02-13] MEDS: HYDROmorphone 2 MG/ML, 1ML IVPush PRN ×5 (09:57→11:05)
[2019-02-13] MEDS ORDERED: CEFOTETAN 2 GM ONE (10:54)
[2019-02-13] MEDS ORDERED: PHENYLEPHRINE 10 MG/ML ONE (10:54)
[2019-02-13 11:30] VITALS: BP 102/59
[2019-02-13] MEDS ORDERED: CALCIUM CARBONATE 500 MG TAB.CHEW PO PRN (13:00)
[2019-02-13] MEDS ORDERED: DIPHENHYDRAMINE 25 MG CAPSULE PO PRN (13:00)
[2019-02-13] MEDS ORDERED: DEXAMETHASONE 4 MG/ML, 1ML IVPush PRN (13:00)
[2019-02-13] MEDS ORDERED: DIPHENHYDRAMINE 50 MG/ML, 1ML IVPush PRN (13:00)
[2019-02-13] MEDS ORDERED: TRAZODONE 50MG TABLET PO PRN (13:00)
[2019-02-13] MEDS ORDERED: LORazepam 2 MG/ML, 1ML IVPush PRN (13:00)
[2019-02-13] MEDS ORDERED: LORazepam 1MG TABLET PO PRN (13:00)
[2019-02-13] MEDS ORDERED: HALOPERIDOL 5 MG/ML IVPush PRN (13:00)
[2019-02-13] MEDS ORDERED: SCOPOLAMINE PATCH, 1.5MG PATCH.TD72 TD PRN (13:00)
[2019-02-13] MEDS: LACTATED RINGERS 1,000 ML IV SCH (13:00)
[2019-02-13] MEDS: KETOROLAC 30 MG/1 ML IVPush SCH ×2 (13:15→19:14)
[2019-02-13] MEDS: OXYcodone IR 5MG TABLET PO PRN ×3 (13:15→22:05)
[2019-02-13] MEDS: ACETAMINOPHEN 500 MG TABLET PO SCH ×2 (13:15→19:14)
[2019-02-13 15:09] VITALS: BP 104/61
[2019-02-13 17:15] VITALS: BP 115/69
[2019-02-13] MEDS: MORPHINE SULFATE 4 MG/ML, 1ML IVPush PRN (18:12)
[2019-02-13 19:37] VITALS: BP 109/65
[2019-02-13] MEDS: TEMAZEPAM 15 MG CAPSULE PO PRN (22:05)
[2019-02-14 00:51] VITALS: BP 103/68
[2019-02-14] MEDS: KETOROLAC 30 MG/1 ML IVPush SCH ×4 (01:11→21:51)
[2019-02-14] MEDS: ACETAMINOPHEN 500 MG TABLET PO SCH ×4 (01:11→21:51)
[2019-02-14] MEDS: MORPHINE SULFATE 4 MG/ML, 1ML IVPush PRN ×2 (01:19→05:50)
[2019-02-14 03:20] LABS: BASOPHILS # (AUTO) 0.03 x10^3/uL (0-0.1); BASOPHILS % (AUTO) 0 % (0-1); EOSINOPHILS # (AUTO) 0.03 x10^3/uL (0-0.4); EOSINOPHILS % (AUTO) 0 % (1-7); LYMPHOCYTES # (AUTO) 1.43 x10^3/uL (1-3.4); LYMPHOCYTES % (AUTO) 16 % (22-44); MD NO; MEAN CORPUSCULAR HEMOGLOBIN 30.4 pg (27.0-34.8); MEAN CORPUSCULAR HGB CONC 33.1 g/dL (32.4-35.8); MEAN CORPUSCULAR VOLUME 92.1 fL (80-100); MEAN PLATELET VOLUME 8.2 fL (7.4-10.4); MONOCYTES # (AUTO) 0.73 x10^3/uL (0.2-0.8); MONOCYTES % (AUTO) 8 % (2-9); NEUTROPHILS # (AUTO) 6.94 x10^3/uL (1.8-6.8); NEUTROPHILS % (AUTO) 76 % (42-75); PLATELET COUNT 283 x10^3/uL (130-400); RED BLOOD COUNT 3.54 x10^6/uL (3.82-5.3)
[2019-02-14 03:33] LABS: ALBUMIN 2.7 g/dL (3.4-5.0); ANION GAP 5 mmol/L (5-15); CALCIUM 8.4 mg/dL (8.5-10.1); CHLORIDE 107 mmol/L (98-107); CREATININE 0.81 mg/dL (0.55-1.02)
[2019-02-14 04:19] VITALS: BP 112/68
[2019-02-14] MEDS: OMEPRAZOLE 20 MG CAPSULE.DR PO SCH (05:52)
[2019-02-14] MEDS: ENOXAPARIN 40 MG/0.4 ML SQ SCH (07:31)
[2019-02-14] MEDS: OXYcodone IR 5MG TABLET PO PRN ×3 (07:40→21:52)
[2019-02-14 07:52] VITALS: BP 106/64
[2019-02-14] MEDS: LACTATED RINGERS 1,000 ML IV SCH (08:43)
[2019-02-14 12:38] VITALS: BP 101/62
[2019-02-14 19:10] VITALS: BP 92/60
[2019-02-14] MEDS: TEMAZEPAM 15 MG CAPSULE PO PRN (21:51)
[2019-02-15 01:15] VITALS: BP 96/64
[2019-02-15 03:21] LABS: BASOPHILS # (AUTO) 0.08 x10^3/uL (0-0.1); BASOPHILS % (AUTO) 1 % (0-1); EOSINOPHILS # (AUTO) 0.12 x10^3/uL (0-0.4); EOSINOPHILS % (AUTO) 2 % (1-7); LYMPHOCYTES # (AUTO) 2.01 x10^3/uL (1-3.4); LYMPHOCYTES % (AUTO) 29 % (22-44); MD NO; MEAN CORPUSCULAR HEMOGLOBIN 30.3 pg (27.0-34.8); MEAN CORPUSCULAR HGB CONC 32.8 g/dL (32.4-35.8); MEAN CORPUSCULAR VOLUME 92.6 fL (80-100); MEAN PLATELET VOLUME 7.9 fL (7.4-10.4); MONOCYTES # (AUTO) 0.44 x10^3/uL (0.2-0.8); MONOCYTES % (AUTO) 6 % (2-9); NEUTROPHILS # (AUTO) 4.32 x10^3/uL (1.8-6.8); NEUTROPHILS % (AUTO) 62 % (42-75); PLATELET COUNT 239 x10^3/uL (130-400); RED BLOOD COUNT 3.36 x10^6/uL (3.82-5.3); RED CELL DISTRIBUTION WIDTH 14.8 % (9.6-15.2)
[2019-02-15 03:30] LABS: ALBUMIN 2.6 g/dL (3.4-5.0); ANION GAP 4 mmol/L (5-15); CALCIUM 8.4 mg/dL (8.5-10.1); CHLORIDE 110 mmol/L (98-107); CREATININE 0.89 mg/dL (0.55-1.02)
[2019-02-15] MEDS: KETOROLAC 30 MG/1 ML IVPush SCH ×5 (04:30→22:50)
[2019-02-15] MEDS: ACETAMINOPHEN 500 MG TABLET PO SCH ×4 (04:30→21:43)
[2019-02-15] MEDS: OMEPRAZOLE 20 MG CAPSULE.DR PO SCH (06:14)
[2019-02-15 06:30] VITALS: BP 123/69
[2019-02-15] MEDS: ENOXAPARIN 40 MG/0.4 ML SQ SCH (08:40)
[2019-02-15] MEDS: OXYcodone IR 5MG TABLET PO PRN ×3 (09:55→22:51)
[2019-02-15] MEDS: LACTATED RINGERS 1,000 ML IV SCH (12:45)
[2019-02-15 14:01] VITALS: BP 112/68
[2019-02-15 18:43] VITALS: BP 95/63
[2019-02-15] MEDS: TEMAZEPAM 15 MG CAPSULE PO PRN (21:43)
[2019-02-16 01:13] VITALS: BP 105/57
[2019-02-16] MEDS: ACETAMINOPHEN 500 MG TABLET PO SCH ×2 (04:12→10:26)
[2019-02-16] MEDS: OXYcodone IR 5MG TABLET PO PRN ×2 (05:27→12:06)
[2019-02-16 05:29] LABS: BASOPHILS # (AUTO) 0.06 x10^3/uL (0-0.1); BASOPHILS % (AUTO) 1 % (0-1); EOSINOPHILS # (AUTO) 0.15 x10^3/uL (0-0.4); EOSINOPHILS % (AUTO) 2 % (1-7); LYMPHOCYTES % (AUTO) 30 % (22-44); MD NO; MEAN CORPUSCULAR HGB CONC 32.9 g/dL (32.4-35.8); MEAN CORPUSCULAR VOLUME 91.3 fL (80-100); MEAN PLATELET VOLUME 7.8 fL (7.4-10.4); MONOCYTES # (AUTO) 0.37 x10^3/uL (0.2-0.8); MONOCYTES % (AUTO) 6 % (2-9); NEUTROPHILS # (AUTO) 3.95 x10^3/uL (1.8-6.8); NEUTROPHILS % (AUTO) 61 % (42-75); PLATELET COUNT 238 x10^3/uL (130-400); RED BLOOD COUNT 3.41 x10^6/uL (3.82-5.3); RED CELL DISTRIBUTION WIDTH 15.6 % (9.6-15.2)
[2019-02-16] MEDS: OMEPRAZOLE 20 MG CAPSULE.DR PO SCH (05:31)
[2019-02-16 05:44] LABS: CHLORIDE 111 mmol/L (98-107)
[2019-02-16 05:51] LABS: ALBUMIN 2.5 g/dL (3.4-5.0); ANION GAP 2 mmol/L (5-15); CALCIUM 8.3 mg/dL (8.5-10.1); CREATININE 0.71 mg/dL (0.55-1.02)
[2019-02-16] MEDS: KETOROLAC 30 MG/1 ML IVPush SCH ×2 (06:18→12:06)
[2019-02-16 08:27] VITALS: BP 108/70
[2019-02-16] MEDS: ENOXAPARIN 40 MG/0.4 ML SQ SCH (08:33)
[2019-02-16] MEDS: LACTATED RINGERS 1,000 ML IV SCH (08:33)
[2019-02-16] MEDS ORDERED: OXYC1TAB7 PO (10:56)
[2019-02-16] MEDS ORDERED: KETOROLAC 30 MG/1 ML ONE (12:05)
[2019-02-16 12:21] VITALS: BP 123/62
== END 2019-02-16 12:30 | disposition home or self-care (01) | DRG 330 ==
LOC: ORIP 06:06 → 4NOR 11:28
PROVIDERS: ADMIT Colon & Rectal Surgery; ATTEND Colon & Rectal Surgery
PROC: 0DBP4ZZ Excision of Rectum, Percutaneous Endoscopic Approach (ICD-10-PCS; 2019-02-13)
PROC: 8E0W4CZ Robotic Assisted Procedure of Trunk Region, Percutaneous Endoscopic Approach (ICD-10-PCS; 2019-02-13)
PROC: 0DTN4ZZ Resection of Sigmoid Colon, Percutaneous Endoscopic Approach (ICD-10-PCS; principal; 2019-02-13 07:30)
DX: K57.32 Diverticulitis of large intestine without perforation or abscess without bleeding (principal); R71.0 Precipitous drop in hematocrit; K21.9 Gastro-esophageal reflux disease without esophagitis; E66.9 Obesity, unspecified; I10 Essential (primary) hypertension; E78.5 Hyperlipidemia, unspecified; I48.91 Unspecified atrial fibrillation; Z88.0 Allergy status to penicillin; Z88.8 Allergy status to other drugs, medicaments and biological substances; Z90.49 Acquired absence of other specified parts of digestive tract; Z68.34 Body mass index [BMI] 34.0-34.9, adult; Z87.891 Personal history of nicotine dependence
CPT/HCPCS: 36415; 80048; 82040; 83735; 85025; 86850; 86900; 88307; C1729; G0378; J1100; J1170; J1650; J1885; J2250; J2405; J2704; J2710; J3010; J1200; J2060; J2270; J2370; J3490; J7120; Q0163

== ENCOUNTER 2019-03-02 16:32 | Emergency (ER) | payer MEDICARE, MEDICAID ==
[~2019-03-02] VITALS: Ht 160 cm; Wt 75.0 kg
[~2019-03-02 16:32] MED LIST changes: -LACTATED RINGERS 1,000 ML IV SCH
--- NOTE | 2019-03-02 16:51 | NUR ---
PT TO ED FOR LLQ ABD AND LEFT SIDED FLANK PAIN X 3 DAYS. PT STATES HAD PART OF COLON REMOVED 02/13/2019. NO COLOSTOMY. LAP INCISIONS WELL HEALED. PT STATES HX GERD WITH ASSOCIATED EPIGASTRIC PAIN AT THIS TIME. PT CONNECTED TO MONITORS. VSS. IV ESTABLISHED PRIOR TO ARRIVAL. 100 MCG FENTANYL AND [address] NS ADMIN[address] EN ROUTE. [address] ZAYAS TO BS FOR ASSESSMENT. AWAITING ORDERS.
[2019-03-02] MEDS ORDERED: METOCLOPRAMIDE 5 MG/ML, 2ML ONE (16:59)
[2019-03-02] MEDS ORDERED: MORPHINE SULFATE 4 MG/ML, 1ML ONE (17:00)
[2019-03-02] MEDS ORDERED: METOCLOPRAMIDE 5 MG/ML, 2ML IVPush ONE (17:00)
[2019-03-02] MEDS ORDERED: SODIUM CHLORIDE FLUSH 10ML SYR IVF ONE (17:00)
[2019-03-02] MEDS ORDERED: MORPHINE SULFATE 4 MG/ML, 1ML IVPush PRN (17:00)
[2019-03-02 17:23] LABS: MICROSCOPIC NOT IND
[2019-03-02 17:24] LABS: CULTURE INDICATED? NO
[2019-03-02 17:24] LABS: BASOPHILS # (AUTO) 0.04 x10^3/uL (0-0.1); BASOPHILS % (AUTO) 1 % (0-1); EOSINOPHILS # (AUTO) 0.27 x10^3/uL (0-0.4); EOSINOPHILS % (AUTO) 4 % (1-7); LYMPHOCYTES # (AUTO) 1.84 x10^3/uL (1-3.4); LYMPHOCYTES % (AUTO) 25 % (22-44); MD NO; MEAN CORPUSCULAR HEMOGLOBIN 30.5 pg (27.0-34.8); MEAN CORPUSCULAR HGB CONC 33.3 g/dL (32.4-35.8); MEAN CORPUSCULAR VOLUME 91.6 fL (80-100); MEAN PLATELET VOLUME 7.9 fL (7.4-10.4); MONOCYTES # (AUTO) 0.41 x10^3/uL (0.2-0.8); MONOCYTES % (AUTO) 6 % (2-9); NEUTROPHILS # (AUTO) 4.87 x10^3/uL (1.8-6.8); NEUTROPHILS % (AUTO) 66 % (42-75); PLATELET COUNT 321 x10^3/uL (130-400); RED BLOOD COUNT 3.91 x10^6/uL (3.82-5.3); RED CELL DISTRIBUTION WIDTH 15.4 % (9.6-15.2)
[2019-03-02 17:33] LABS: ALANINE AMINOTRANSFERASE 20 U/L (12-78); ALBUMIN 3.5 g/dL (3.4-5.0); ANION GAP 10 mmol/L (5-15); CALCIUM 8.3 mg/dL (8.5-10.1); CHLORIDE 111 mmol/L (98-107); CREATININE 0.76 mg/dL (0.55-1.02)
[2019-03-02 17:36] LABS: ALKALINE PHOSPHATASE 68 U/L (45-117); BILIRUBIN,TOTAL 0.3 mg/dL (0.2-1.0); TOTAL PROTEIN 6.8 g/dL (6.4-8.2)
--- NOTE | 2019-03-02 17:56 | NUR ---
pt to ct.
[2019-03-02 18:23] VITALS: BP 104/56
--- NOTE | 2019-03-02 18:23 | NUR ---
PT BACK FROM CT. VSS. WARM BLANKETS PROVIDED FOR COMFORT. NO OTHER REQUESTS AT THIS TIME. AWAITING RESULTS.
[2019-03-02] MEDS ORDERED: OMNIPAQUE 350 MG/ML, 100ML BOTTLE ONE (20:35)
== END 2019-03-02 19:19 | disposition home or self-care (01) ==
LOC: ED 17:11
DX: R10.32 Left lower quadrant pain (principal); K21.9 Gastro-esophageal reflux disease without esophagitis; I10 Essential (primary) hypertension; Z87.891 Personal history of nicotine dependence
CPT/HCPCS: 36415; 74177; 80053; 81003; 83605; 83690; 85025; 96374; 96375; 99284; J2270; J2765; Q9967

== ENCOUNTER 2019-03-11 17:51 | Emergency (ER) | payer MEDICARE, MEDICAID ==
[~2019-03-11] VITALS: Ht 160 cm; Wt 72.7 kg
[2019-03-11 18:20] LABS: BASOPHILS # (AUTO) 0.04 x10^3/uL (0-0.1); BASOPHILS % (AUTO) 1 % (0-1); EOSINOPHILS # (AUTO) 0.21 x10^3/uL (0-0.4); EOSINOPHILS % (AUTO) 3 % (1-7); LYMPHOCYTES # (AUTO) 1.65 x10^3/uL (1-3.4); LYMPHOCYTES % (AUTO) 26 % (22-44); MD NO; MEAN CORPUSCULAR HEMOGLOBIN 30.3 pg (27.0-34.8); MEAN CORPUSCULAR HGB CONC 33.2 g/dL (32.4-35.8); MEAN CORPUSCULAR VOLUME 91.3 fL (80-100); MEAN PLATELET VOLUME 8.3 fL (7.4-10.4); MONOCYTES # (AUTO) 0.36 x10^3/uL (0.2-0.8); MONOCYTES % (AUTO) 6 % (2-9); NEUTROPHILS # (AUTO) 4.04 x10^3/uL (1.8-6.8); NEUTROPHILS % (AUTO) 64 % (42-75); PLATELET COUNT 268 x10^3/uL (130-400); RED BLOOD COUNT 4.05 x10^6/uL (3.82-5.3); RED CELL DISTRIBUTION WIDTH 15.3 % (9.6-15.2)
[2019-03-11] MEDS ORDERED: MORPHINE SULFATE 4 MG/ML, 1ML ONE (18:25)
[2019-03-11] MEDS ORDERED: PROMETHAZINE 25 MG/ML, 1ML ONE (18:25)
[2019-03-11] MEDS ORDERED: PROMETHAZINE 25 MG/ML, 1ML IM ONE (18:30)
[2019-03-11] MEDS ORDERED: MORPHINE SULFATE 4 MG/ML, 1ML IVPush PRN (18:30)
--- NOTE | 2019-03-11 18:31 | NUR ---
UA SENT TO LAB, PT MEDICATED PER OCT. PT RESTING IN [facility], AWAITING LAB AND RAD RESULTS. NO NEEDS AT THIS TIME, CALL LIGHT WITHIN REACH
[2019-03-11 18:33] LABS: ALANINE AMINOTRANSFERASE 28 U/L (12-78); ALBUMIN 3.8 g/dL (3.4-5.0); ANION GAP 5 mmol/L (5-15); CALCIUM 8.7 mg/dL (8.5-10.1); CHLORIDE 112 mmol/L (98-107); CREATININE 0.78 mg/dL (0.55-1.02)
[2019-03-11 18:35] LABS: ALKALINE PHOSPHATASE 73 U/L (45-117); BILIRUBIN,TOTAL 0.3 mg/dL (0.2-1.0); TOTAL PROTEIN 6.9 g/dL (6.4-8.2)
--- NOTE | 2019-03-11 19:00 | NUR ---
REPORT RECIEVED FROM CORIN RIVERA
[2019-03-11 19:17] LABS: CULTURE INDICATED? YES; MICROSCOPIC INDICATED
--- NOTE | 2019-03-11 19:33 | NUR ---
ALL PT DIAGNOSTICS BACK, PT PLACED FOR RECHECK BY BETTINA VALDEZ
[2019-03-11 19:36] VITALS: BP 132/76
== END 2019-03-11 20:35 | disposition home or self-care (01) ==
LOC: ED 20:20
DX: K59.00 Constipation, unspecified (principal); G89.29 Other chronic pain; R10.31 Right lower quadrant pain; M54.9 Dorsalgia, unspecified; K21.9 Gastro-esophageal reflux disease without esophagitis; I48.91 Unspecified atrial fibrillation; E78.5 Hyperlipidemia, unspecified; I10 Essential (primary) hypertension
CPT/HCPCS: 36415; 74022; 80053; 81001; 83690; 85025; 87086; 96372; 96374; 99284; J2270; J2550

== ENCOUNTER 2019-03-23 16:09 | Emergency (ER) | payer MEDICARE, MEDICAID ==
[~2019-03-23] VITALS: Ht 160 cm; Wt 72.0 kg
[2019-03-23 18:48] VITALS: BP 99/53
== END 2019-03-23 19:02 | disposition home or self-care (01) ==
LOC: ED 16:44
DX: K92.2 Gastrointestinal hemorrhage, unspecified (principal); G89.29 Other chronic pain; R10.84 Generalized abdominal pain; K21.9 Gastro-esophageal reflux disease without esophagitis; I48.91 Unspecified atrial fibrillation; E78.5 Hyperlipidemia, unspecified; I10 Essential (primary) hypertension; Z87.891 Personal history of nicotine dependence; Z90.49 Acquired absence of other specified parts of digestive tract
CPT/HCPCS: 36415; 74177; 80053; 85025; 85610; 85730; 86850; 86900; 96374; 96375; 99284; J1200; J2270; J2765; Q9967

== ENCOUNTER 2019-03-28 17:54 | Emergency (ER) | payer MEDICARE, MEDICAID ==
[~2019-03-28] VITALS: Ht 160 cm; Wt 78.7 kg
[~2019-03-28 17:54] MED LIST changes: -DULO30CA43 PO; +DULO30CA44 PO; -TIZA4TAB PO; +TIZA4TAB2 PO
--- NOTE | 2019-03-28 18:56 | NUR ---
IV ACCESS AND LABS DRAWN. PT REGISTERED. CALL LIGHT WITHIN REACH, COVERED WITH A SHEET. PT TRIED TO OBTAIN A STOOL SAMPLE BUT NOTHING THERE TO POOP OUT.
[2019-03-28] MEDS ORDERED: MORPHINE SULFATE 4 MG/ML, 1ML IVPush PRN (19:00)
[2019-03-28] MEDS ORDERED: METOCLOPRAMIDE 5 MG/ML, 2ML IVPush ONE (19:00)
[2019-03-28 19:01] LABS: BASOPHILS # (AUTO) 0.05 x10^3/uL (0-0.1); BASOPHILS % (AUTO) 1 % (0-1); EOSINOPHILS # (AUTO) 0.13 x10^3/uL (0-0.4); EOSINOPHILS % (AUTO) 2 % (1-7); LYMPHOCYTES # (AUTO) 1.85 x10^3/uL (1-3.4); LYMPHOCYTES % (AUTO) 28 % (22-44); MD NO; MEAN CORPUSCULAR HEMOGLOBIN 30.3 pg (27.0-34.8); MEAN CORPUSCULAR HGB CONC 32.9 g/dL (32.4-35.8); MONOCYTES # (AUTO) 0.35 x10^3/uL (0.2-0.8); MONOCYTES % (AUTO) 5 % (2-9); NEUTROPHILS # (AUTO) 4.21 x10^3/uL (1.8-6.8); NEUTROPHILS % (AUTO) 64 % (42-75); PLATELET COUNT 271 x10^3/uL (130-400); RED BLOOD COUNT 3.89 x10^6/uL (3.82-5.3); RED CELL DISTRIBUTION WIDTH 15.7 % (9.6-15.2)
[2019-03-28 19:11] LABS: INTERNATIONAL NORMALIZED RATIO 1.02 (0.93-1.1); PROTHROMBIN TIME 10.7 Seconds (9.6-11.5)
[2019-03-28 19:15] LABS: ALANINE AMINOTRANSFERASE 29 U/L (12-78); ALBUMIN 3.8 g/dL (3.4-5.0); ANION GAP 8 mmol/L (5-15); CALCIUM 8.5 mg/dL (8.5-10.1); CHLORIDE 118 mmol/L (98-107)
[2019-03-28 19:18] LABS: ALKALINE PHOSPHATASE 72 U/L (45-117); BILIRUBIN,TOTAL 0.3 mg/dL (0.2-1.0); CREATININE 0.82 mg/dL (0.55-1.02); TOTAL PROTEIN 6.9 g/dL (6.4-8.2)
[2019-03-28] MEDS ORDERED: MORPHINE SULFATE 4 MG/ML, 1ML ONE (19:25)
[2019-03-28] MEDS ORDERED: METOCLOPRAMIDE 5 MG/ML, 2ML ONE (19:25)
--- NOTE | 2019-03-28 19:31 | NUR ---
IV PAIN MEDS GIVEN. PT WATCHING TV, COVERED WITH A SHEET, CALL LIGHT WITHIN REACH.
--- NOTE | 2019-03-28 19:35 | NUR ---
PT PROVIDED WITH WARM BLANKET. PT ON CONT BP AND O2 MONITORS. CALL LIGHT WITHIN REACH. WILL CONT TO MONITOR PT.
[2019-03-28 20:11] VITALS: BP 116/60
== END 2019-03-28 20:13 | disposition home or self-care (01) ==
LOC: ED 18:17
DX: K92.1 Melena (principal); K21.9 Gastro-esophageal reflux disease without esophagitis; G89.29 Other chronic pain; I10 Essential (primary) hypertension; Z87.891 Personal history of nicotine dependence
CPT/HCPCS: 36415; 80053; 83605; 83690; 85025; 85610; 86850; 86900; 96374; 96375; 99283; J2270; J2765

== ENCOUNTER 2019-04-07 07:15 | Emergency (ER) | payer MEDICARE, MEDICAID ==
[~2019-04-07] VITALS: Ht 160 cm; Wt 80.3 kg
[2019-04-07 08:41] VITALS: BP 108/61
== END 2019-04-07 10:09 | disposition home or self-care (01) ==
LOC: ED 09:46
DX: R10.84 Generalized abdominal pain (principal); H60.501 Unspecified acute noninfective otitis externa, right ear; I10 Essential (primary) hypertension; E78.5 Hyperlipidemia, unspecified; K21.9 Gastro-esophageal reflux disease without esophagitis; G89.29 Other chronic pain; M54.9 Dorsalgia, unspecified; F32.9 Major depressive disorder, single episode, unspecified; Z90.49 Acquired absence of other specified parts of digestive tract
CPT/HCPCS: 36415; 74021; 80053; 81003; 83690; 85025; 93005; 96372; 99284; J2550

== ENCOUNTER 2019-04-15 15:34 | Emergency (ER) | payer MEDICARE, MEDICAID ==
[~2019-04-15] VITALS: Ht 160 cm; Wt 77.3 kg
[2019-04-15 18:14] VITALS: BP 140/68
== END 2019-04-15 18:24 | disposition home or self-care (01) ==
LOC: ED 18:05
DX: R10.31 Right lower quadrant pain (principal); R10.32 Left lower quadrant pain; R10.30 Lower abdominal pain, unspecified; R11.2 Nausea with vomiting, unspecified; K21.9 Gastro-esophageal reflux disease without esophagitis; I48.91 Unspecified atrial fibrillation; F32.9 Major depressive disorder, single episode, unspecified; E78.5 Hyperlipidemia, unspecified; I10 Essential (primary) hypertension; Z87.891 Personal history of nicotine dependence; Z90.49 Acquired absence of other specified parts of digestive tract
CPT/HCPCS: 36415; 74021; 74176; 80047; 85025; 99284

== ENCOUNTER 2019-06-29 12:58 | Emergency (ER) | payer MEDICARE, MEDICAID ==
[~2019-06-29] VITALS: Ht 160 cm; Wt 79.2 kg
[~2019-06-29 12:58] MED LIST changes: +DILT120C48 PO; -DILT120C9 PO; +OMEP40CA42 PO; -OMEP40CA6 PO
[2019-06-29] MEDS ORDERED: MORPHINE SULFATE 4 MG/ML, 1ML ONE (13:46)
[2019-06-29] MEDS ORDERED: MORPHINE SULFATE 4 MG/ML, 1ML IVPush PRN (14:00)
[2019-06-29] MEDS ORDERED: ONDANSETRON 2MG/ML, 2ML ONE (14:02)
[2019-06-29 14:09] LABS: BASOPHILS # (AUTO) 0.03 x10^3/uL (0-0.1); BASOPHILS % (AUTO) 1 % (0-1); EOSINOPHILS # (AUTO) 0.08 x10^3/uL (0-0.4); EOSINOPHILS % (AUTO) 1 % (1-7); LYMPHOCYTES # (AUTO) 1.49 x10^3/uL (1-3.4); LYMPHOCYTES % (AUTO) 24 % (22-44); MD NO; MEAN CORPUSCULAR HEMOGLOBIN 28.6 pg (27.0-34.8); MEAN CORPUSCULAR HGB CONC 32.5 g/dL (32.4-35.8); MEAN PLATELET VOLUME 8.6 fL (7.4-10.4); MONOCYTES # (AUTO) 0.44 x10^3/uL (0.2-0.8); MONOCYTES % (AUTO) 7 % (2-9); NEUTROPHILS # (AUTO) 4.06 x10^3/uL (1.8-6.8); NEUTROPHILS % (AUTO) 67 % (42-75); PLATELET COUNT 277 x10^3/uL (130-400); RED BLOOD COUNT 4.36 x10^6/uL (3.82-5.3)
--- NOTE | 2019-06-29 14:10 | NUR ---
PT VOMITING. MD TO BE UPDATED. ADDITIONAL ORDERS RECEIVED
[2019-06-29 14:17] LABS: INTERNATIONAL NORMALIZED RATIO 1.12 (0.93-1.1); PROTHROMBIN TIME 11.7 Seconds (9.6-11.5)
[2019-06-29 14:18] LABS: ALANINE AMINOTRANSFERASE 19 U/L (12-78); ALBUMIN 3.8 g/dL (3.4-5.0); ANION GAP 6 mmol/L (5-15); CALCIUM 8.7 mg/dL (8.5-10.1); CHLORIDE 113 mmol/L (98-107); CREATININE 0.93 mg/dL (0.55-1.02)
[2019-06-29 14:23] LABS: ALKALINE PHOSPHATASE 75 U/L (45-117); BILIRUBIN,TOTAL 0.5 mg/dL (0.2-1.0); TROPONIN I < 0.015 ng/mL (0.000-0.045)
--- NOTE | 2019-06-29 14:24 | NUR ---
PT RESTING ON GURNEY. IV STARTED, PT MEDICATED PER MAR
[2019-06-29] MEDS ORDERED: ONDANSETRON 2MG/ML, 2ML IVPush ONE (14:30)
--- NOTE | 2019-06-29 14:46 | NUR ---
TAKEN TO CT
[2019-06-29] MEDS ORDERED: OMNIPAQUE 350 MG/ML, 100ML BOTTLE ONE (15:22)
--- NOTE | 2019-06-29 16:05 | NUR ---
PT UP TO RESTROOM TO OBTAIN UA, URINE COLLECTED AND SENT TO LAB.
[2019-06-29] MEDS ORDERED: MAALOX/HYOSCYAMINE/LIDOCAINE 45 ML BTL ONE (16:07)
[2019-06-29 16:11] VITALS: BP 121/78
[2019-06-29 16:22] LABS: MICROSCOPIC NOT IND
[2019-06-29 16:29] LABS: CULTURE INDICATED? NO
[2019-06-29] MEDS ORDERED: MAALOX/HYOSCYAMINE/LIDOCAINE 45 ML BTL PO ONE (16:30)
--- NOTE | 2019-06-29 16:30 | NUR ---
ALL RESLULTS BACK AT THIS TIME. CHART UP FOR RECHECK
== END 2019-06-29 17:01 | disposition home or self-care (01) ==
LOC: ED 13:28
DX: R10.84 Generalized abdominal pain (principal); E78.5 Hyperlipidemia, unspecified; I10 Essential (primary) hypertension; F32.9 Major depressive disorder, single episode, unspecified; M54.9 Dorsalgia, unspecified; G89.29 Other chronic pain; K21.9 Gastro-esophageal reflux disease without esophagitis; Z90.49 Acquired absence of other specified parts of digestive tract
CPT/HCPCS: 36415; 71045; 74177; 80053; 81003; 83690; 84484; 85025; 85610; 85730; 93005; 96374; 96375; 99284; J2270; J2405; Q9967

== ENCOUNTER 2019-07-18 15:45 | Inpatient (IN) | payer MEDICARE, MEDICAID ==
[~2019-07-18] VITALS: Ht 160 cm; Wt 89.8 kg
[2019-07-18] MEDS ORDERED: METO10TA2 PO (16:02)
[2019-07-18] MEDS ORDERED: APIX5TAB PO (16:02)
[2019-07-18] MEDS ORDERED: DICY20TA3 PO (16:02)
--- NOTE | 2019-07-18 16:02 | NUR ---
PT BIB [facility] TO ED C/O N/V AND URINARY SX SINCE 199. C/O FREQUENCY, INCONTINENCE, BURNING ON URINATION, PAIN UNDER UMBILICUS. ZOFRAN AND 50 MCG FENTANYL PER EMS. 03/05 PAIN REDUCED FROM 10 PAIN. NO BLOOD IN URINE. A&OX4 GCS 15. AMBULATORY GAIT STEADY. VSS. URINE CLEAR, CONCENTRATED. STS EATING AND DRINKING TODAY BUT REPORTS VOMITING WATER. CALL SIMPSON IN REACH, AWAITING MD HARRIS.
[2019-07-18] MEDS ORDERED: MORPHINE SULFATE 4 MG/ML, 1ML ONE ×2 (16:57→18:00)
[2019-07-18] MEDS ORDERED: FAMOTIDINE 20 MG/2 ML ONE (16:57)
[2019-07-18] MEDS ORDERED: SODIUM CHLORIDE FLUSH 10ML SYR IVF ONE (17:00)
[2019-07-18] MEDS ORDERED: FAMOTIDINE 20 MG/2 ML IV ONE (17:00)
[2019-07-18] MEDS ORDERED: SODIUM CHLORIDE 0.9% 1,000ML IVBOLUS ONE (17:00)
[2019-07-18] MEDS: MORPHINE SULFATE 4 MG/ML, 1ML IVPush PRN ×2 (17:00→18:02)
--- NOTE | 2019-07-18 17:07 | NUR ---
MEDS PER MAR FOR 9/10 DYSURIA AND LOWER ABD PAIN. DENIES NAUSEA. STS "I'M BLEEDING" URINARY PAD SHOWS FAINT PINK TINGE. LITER INFUSING. URINE SENT. CALL SIMPSON IN [facility]. CTM.
[2019-07-18 17:19] LABS: BASOPHILS # (AUTO) 0.04 x10^3/uL (0-0.1); BASOPHILS % (AUTO) 1 % (0-1); EOSINOPHILS # (AUTO) 0.15 x10^3/uL (0-0.4); EOSINOPHILS % (AUTO) 2 % (1-7); LYMPHOCYTES # (AUTO) 1.56 x10^3/uL (1-3.4); LYMPHOCYTES % (AUTO) 25 % (22-44); MD NO; MEAN CORPUSCULAR HEMOGLOBIN 29.4 pg (27.0-34.8); MEAN CORPUSCULAR HGB CONC 32.4 g/dL (32.4-35.8); MEAN CORPUSCULAR VOLUME 90.9 fL (80-100); MEAN PLATELET VOLUME 8.8 fL (7.4-10.4); MONOCYTES # (AUTO) 0.26 x10^3/uL (0.2-0.8); MONOCYTES % (AUTO) 4 % (2-9); NEUTROPHILS # (AUTO) 4.17 x10^3/uL (1.8-6.8); NEUTROPHILS % (AUTO) 68 % (42-75); PLATELET COUNT 243 x10^3/uL (130-400); RED BLOOD COUNT 3.75 x10^6/uL (3.82-5.3); RED CELL DISTRIBUTION WIDTH 16.7 % (9.6-15.2)
[2019-07-18 17:21] LABS: ALANINE AMINOTRANSFERASE 18 U/L (12-78); ALBUMIN 3.6 g/dL (3.4-5.0); ANION GAP 3 mmol/L (5-15); CALCIUM 8.5 mg/dL (8.5-10.1); CHLORIDE 116 mmol/L (98-107); CREATININE 0.75 mg/dL (0.55-1.02)
[2019-07-18 17:23] LABS: ALKALINE PHOSPHATASE 66 U/L (45-117); BILIRUBIN,TOTAL 0.3 mg/dL (0.2-1.0); TOTAL PROTEIN 6.5 g/dL (6.4-8.2)
[2019-07-18 18:06] LABS: MICROSCOPIC INDICATED
--- NOTE | 2019-07-18 18:06 | NUR ---
PT CONTINUES TO C/O PAIN. WHEN SPEAKING W/ RN, CALM, JOVIAL. WHEN ALONE, CRIES OUT IN PAIN. 05/06 LOWER ABD PAIN. LIGHT VAGINAL SPOTTING ON WASH CLOTH. REMEDICATED W/ MORPHINE PER OCT. CALL SIMPSON IN REACH. URINE PENDING. XR WNL.
[2019-07-18 18:07] LABS: CULTURE INDICATED? YES
--- NOTE | 2019-07-18 19:15 | NUR ---
PT APPEARED TO BE RESTING COMFORTABLY UNTIL RN WALKED INTO ROOM. PT STARTS MOANING, C/O 9/10 ABDOMINAL PAIN. VSS. C/O NAUSEA. WILL NOTIFY MD.
--- NOTE | 2019-07-18 19:17 | NUR ---
pt states "I hope they admit me, I can't deal with this pain."
[2019-07-18] MEDS ORDERED: SODIUM CHLORIDE 0.9% 1,000 ML IV ONE (19:53)
[2019-07-18] MEDS: PLEASE ENTER HEIGHT AND WEIGHT MC SCH ×2 (20:00→23:19)
[2019-07-18] MEDS ORDERED: SODIUM CHLORIDE FLUSH 10ML SYR IVF PRN (20:00)
[2019-07-18] MEDS ORDERED: CEFTRIAXONE PMX 1GM/50ML 50 ML IVPB ONE ×2 (20:00)
--- NOTE | 2019-07-18 20:27 | NUR ---
report to Juany COOMBS. pt aware of being admitted. asking for food. no diet order yet.
[2019-07-18] MEDS ORDERED: CEFTRIAXONE 1,000 MG ONE (20:31)
[2019-07-18] MEDS ORDERED: CEFTRIAXONE PMX 1GM/50ML 50 ML ONE (20:33)
[2019-07-18] MEDS ORDERED: LIDODERM 5% PATCH TD PRN (22:30)
[2019-07-18] MEDS ORDERED: POLYETHYLENE GLYCOL 17 GM PACKET PO PRN (22:30)
[2019-07-18] MEDS ORDERED: ENALAPRILAT 1.25 MG/ML, 2ML IVPush PRN (22:30)
[2019-07-18] MEDS ORDERED: ACETAMINOPHEN 325 MG TABLET PO PRN (22:30)
[2019-07-18] MEDS: DICYCLOMINE 20 MG TABLET PO SCH (23:17)
[2019-07-18] MEDS: TEMAZEPAM 15 MG CAPSULE PO PRN (23:17)
[2019-07-18] MEDS: PHENAZOPYRIDINE 200 MG TABLET PO PRN (23:17)
[2019-07-18] MEDS: APIXABAN 5 MG TABLET PO SCH (23:18)
[2019-07-18] MEDS: METOCLOPRAMIDE 10MG TABLET PO SCH (23:18)
[2019-07-18] MEDS: METHOCARBAMOL 500 MG TABLET PO PRN (23:18)
[2019-07-18 23:32] VITALS: BP 153/80
[2019-07-19 01:06] VITALS: BP 149/78
[2019-07-19] MEDS ORDERED: ESOM40CA48 PO (02:49)
[2019-07-19] MEDS ORDERED: APIX5TAB PO (02:49)
[2019-07-19] MEDS ORDERED: DICY20TA3 PO (02:49)
[2019-07-19] MEDS ORDERED: METO10TA2 PO (02:49)
[2019-07-19] MEDS ORDERED: FLU VACC QS2019-20 36MOS UP/PF 0.5 ML IM-VACC ONE (04:30)
[2019-07-19 05:20] LABS: BASOPHILS # (AUTO) 0.03 x10^3/uL (0-0.1); BASOPHILS % (AUTO) 1 % (0-1); EOSINOPHILS # (AUTO) 0.23 x10^3/uL (0-0.4); EOSINOPHILS % (AUTO) 4 % (1-7); LYMPHOCYTES # (AUTO) 1.81 x10^3/uL (1-3.4); LYMPHOCYTES % (AUTO) 31 % (22-44); MD NO; MEAN CORPUSCULAR HEMOGLOBIN 29.6 pg (27.0-34.8); MEAN CORPUSCULAR HGB CONC 32.6 g/dL (32.4-35.8); MEAN CORPUSCULAR VOLUME 90.7 fL (80-100); MEAN PLATELET VOLUME 8.7 fL (7.4-10.4); MONOCYTES # (AUTO) 0.38 x10^3/uL (0.2-0.8); MONOCYTES % (AUTO) 6 % (2-9); NEUTROPHILS % (AUTO) 58 % (42-75); PLATELET COUNT 185 x10^3/uL (130-400); RED BLOOD COUNT 3.28 x10^6/uL (3.82-5.3); RED CELL DISTRIBUTION WIDTH 16.9 % (9.6-15.2)
[2019-07-19 05:28] LABS: CHLORIDE 115 mmol/L (98-107)
[2019-07-19 05:33] LABS: ANION GAP 4 mmol/L (5-15); CALCIUM 7.8 mg/dL (8.5-10.1); CREATININE 0.73 mg/dL (0.55-1.02)
[2019-07-19] MEDS: DICYCLOMINE 20 MG TABLET PO SCH ×4 (06:06→20:34)
[2019-07-19] MEDS: METOCLOPRAMIDE 10MG TABLET PO SCH (06:07)
[2019-07-19 09:21] VITALS: BP 109/60
[2019-07-19] MEDS: PLEASE ENTER HEIGHT AND WEIGHT MC SCH (09:58)
[2019-07-19] MEDS: APIXABAN 5 MG TABLET PO SCH ×2 (10:04→20:34)
[2019-07-19] MEDS: OMEPRAZOLE 20 MG CAPSULE.DR PO SCH (10:04)
[2019-07-19 12:25] VITALS: BP 108/68
[2019-07-19] MEDS: PHENAZOPYRIDINE 200 MG TABLET PO PRN ×2 (12:28→20:34)
[2019-07-19] MEDS: METHOCARBAMOL 500 MG TABLET PO PRN ×2 (12:36→20:34)
[2019-07-19 19:22] VITALS: BP 119/73
[2019-07-19] MEDS: TEMAZEPAM 15 MG CAPSULE PO PRN (20:34)
[2019-07-19] MEDS: CEFTRIAXONE PMX 1GM/50ML 50 ML IV SCH (20:34)
[2019-07-20 01:39] VITALS: BP 117/71
[2019-07-20 05:11] LABS: BASOPHILS # (AUTO) 0.03 x10^3/uL (0-0.1); BASOPHILS % (AUTO) 1 % (0-1); EOSINOPHILS % (AUTO) 4 % (1-7); LYMPHOCYTES # (AUTO) 1.58 x10^3/uL (1-3.4); LYMPHOCYTES % (AUTO) 33 % (22-44); MD NO; MEAN CORPUSCULAR HEMOGLOBIN 29.7 pg (27.0-34.8); MEAN CORPUSCULAR HGB CONC 32.8 g/dL (32.4-35.8); MEAN CORPUSCULAR VOLUME 90.5 fL (80-100); MEAN PLATELET VOLUME 8.7 fL (7.4-10.4); MONOCYTES # (AUTO) 0.29 x10^3/uL (0.2-0.8); MONOCYTES % (AUTO) 6 % (2-9); NEUTROPHILS # (AUTO) 2.76 x10^3/uL (1.8-6.8); NEUTROPHILS % (AUTO) 57 % (42-75); PLATELET COUNT 204 x10^3/uL (130-400); RED BLOOD COUNT 3.47 x10^6/uL (3.82-5.3); RED CELL DISTRIBUTION WIDTH 16.7 % (9.6-15.2)
[2019-07-20 05:22] LABS: ANION GAP 1 mmol/L (5-15); CALCIUM 8.7 mg/dL (8.5-10.1); CHLORIDE 112 mmol/L (98-107)
[2019-07-20 05:26] LABS: ALANINE AMINOTRANSFERASE 19 U/L (12-78); ALKALINE PHOSPHATASE 53 U/L (45-117); BILIRUBIN,TOTAL 0.3 mg/dL (0.2-1.0); CREATININE 0.78 mg/dL (0.55-1.02); TOTAL PROTEIN 5.6 g/dL (6.4-8.2)
[2019-07-20] MEDS: PHENAZOPYRIDINE 200 MG TABLET PO PRN ×2 (06:23→15:10)
[2019-07-20] MEDS: DICYCLOMINE 20 MG TABLET PO SCH ×4 (06:23→20:14)
[2019-07-20 06:48] VITALS: BP 135/76
[2019-07-20] MEDS: OMEPRAZOLE 20 MG CAPSULE.DR PO SCH (09:12)
[2019-07-20] MEDS: APIXABAN 5 MG TABLET PO SCH ×2 (09:12→20:14)
[2019-07-20] MEDS ORDERED: LORazepam 2 MG/ML, 1ML ONE (09:16)
[2019-07-20] MEDS ORDERED: LORazepam 2 MG/ML, 1ML IVPush ONE (09:30)
[2019-07-20 10:06] LABS: FREE T4 (FREE THYROXINE) 0.99 ng/dL (0.76-1.46)
[2019-07-20 10:59] VITALS: BP 131/87
[2019-07-20] MEDS: OXYcodone IR 5MG TABLET PO PRN ×2 (11:17→17:05)
[2019-07-20] MEDS: METHOCARBAMOL 500 MG TABLET PO PRN ×2 (13:53→20:12)
[2019-07-20] MEDS: ONDANSETRON 2MG/ML, 2ML IVPush PRN ×2 (13:53→20:34)
[2019-07-20 15:59] VITALS: BP 131/73
[2019-07-20 18:32] VITALS: BP 127/74
[2019-07-20] MEDS: CEFTRIAXONE PMX 1GM/50ML 50 ML IV SCH (20:12)
[2019-07-20] MEDS: TEMAZEPAM 15 MG CAPSULE PO PRN (20:14)
[2019-07-20] MEDS ORDERED: OMNIPAQUE 350 MG/ML, 150 ML BOTTLE ONE (23:51)
[2019-07-21 02:35] VITALS: BP 106/69
[2019-07-21] MEDS: DICYCLOMINE 20 MG TABLET PO SCH ×2 (05:18→10:21)
[2019-07-21] MEDS: OXYcodone IR 5MG TABLET PO PRN ×2 (05:18→12:25)
[2019-07-21] MEDS: PHENAZOPYRIDINE 200 MG TABLET PO PRN (05:22)
[2019-07-21 05:53] LABS: BASOPHILS # (AUTO) 0.02 x10^3/uL (0-0.1); BASOPHILS % (AUTO) 1 % (0-1); EOSINOPHILS # (AUTO) 0.16 x10^3/uL (0-0.4); EOSINOPHILS % (AUTO) 3 % (1-7); LYMPHOCYTES # (AUTO) 1.76 x10^3/uL (1-3.4); LYMPHOCYTES % (AUTO) 39 % (22-44); MD NO; MEAN CORPUSCULAR HEMOGLOBIN 29.5 pg (27.0-34.8); MEAN CORPUSCULAR HGB CONC 33.6 g/dL (32.4-35.8); MEAN CORPUSCULAR VOLUME 87.6 fL (80-100); MEAN PLATELET VOLUME 8.3 fL (7.4-10.4); MONOCYTES # (AUTO) 0.31 x10^3/uL (0.2-0.8); MONOCYTES % (AUTO) 7 % (2-9); NEUTROPHILS # (AUTO) 2.29 x10^3/uL (1.8-6.8); NEUTROPHILS % (AUTO) 50 % (42-75); PLATELET COUNT 219 x10^3/uL (130-400); RED BLOOD COUNT 3.61 x10^6/uL (3.82-5.3); RED CELL DISTRIBUTION WIDTH 16.5 % (9.6-15.2)
[2019-07-21 06:10] LABS: ALBUMIN 3.1 g/dL (3.4-5.0); ANION GAP 3 mmol/L (5-15); CALCIUM 8.5 mg/dL (8.5-10.1); CHLORIDE 109 mmol/L (98-107)
[2019-07-21 06:16] LABS: ALANINE AMINOTRANSFERASE 16 U/L (12-78); ALKALINE PHOSPHATASE 56 U/L (45-117); BILIRUBIN,TOTAL 0.5 mg/dL (0.2-1.0); CREATININE 0.88 mg/dL (0.55-1.02)
[2019-07-21 07:02] VITALS: BP 102/63
[2019-07-21 09:26] LABS: OCCULT BLOOD NEGATIVE (NEGATIVE)
[2019-07-21] MEDS: ONDANSETRON 2MG/ML, 2ML IVPush PRN (09:57)
[2019-07-21] MEDS: OMEPRAZOLE 20 MG CAPSULE.DR PO SCH (10:21)
[2019-07-21] MEDS: APIXABAN 5 MG TABLET PO SCH (10:21)
[2019-07-21] MEDS: METHOCARBAMOL 500 MG TABLET PO PRN (10:21)
[2019-07-21] MEDS ORDERED: CEFD300C37 PO ×3 (13:57→15:35)
[2019-07-21 14:03] VITALS: BP 119/61
[2019-07-21] MEDS ORDERED: LACT1CAP3 PO (15:36)
== END 2019-07-21 15:23 | disposition home or self-care (01) | DRG 690 ==
LOC: ED 16:10 → EDIP 19:53 → 3N 20:59 → 4WST 07-20 10:49 → DCLOUNGE 07-21 15:13
PROVIDERS: ADMIT Internal Medicine; ATTEND Hospitalist
DX: N10 Acute pyelonephritis (principal); D68.59 Other primary thrombophilia; F33.9 Major depressive disorder, recurrent, unspecified; E70.1 Other hyperphenylalaninemias; M48.56XA Collapsed vertebra, not elsewhere classified, lumbar region, initial encounter for fracture; I48.91 Unspecified atrial fibrillation; E78.5 Hyperlipidemia, unspecified; G47.00 Insomnia, unspecified; G89.29 Other chronic pain; I10 Essential (primary) hypertension; K21.9 Gastro-esophageal reflux disease without esophagitis; K27.9 Peptic ulcer, site unspecified, unspecified as acute or chronic, without hemorrhage or perforation; N32.89 Other specified disorders of bladder; Z79.01 Long term (current) use of anticoagulants; Z80.3 Family history of malignant neoplasm of breast; Z83.3 Family history of diabetes mellitus; Z86.19 Personal history of other infectious and parasitic diseases; Z86.718 Personal history of other venous thrombosis and embolism; Z87.11 Personal history of peptic ulcer disease; Z90.49 Acquired absence of other specified parts of digestive tract; Z98.51 Tubal ligation status
CPT/HCPCS: 36415; 74021; 74177; 80048; 80053; 81001; 82272; 83605; 83690; 84145; 84439; 84443; 85025; 87040; 87077; 87086; 87186; 90686; 93005; 93306; 96361; 96374; 96375; 99285; G0378; J0696; J2405; Q9967; J2060; J2270; J3490; J7030

== ENCOUNTER 2019-08-25 12:00 | Emergency (ER) | payer MEDICARE, MEDICAID ==
[~2019-08-25] VITALS: Ht 167.6 cm; Wt 79.5 kg
[~2019-08-25 12:00] MED LIST changes: +DICY20TA3 PO; +ESOM40CA48 PO; +LACT1CAP3 PO; +METO10TA2 PO
--- NOTE | 2019-08-25 12:10 | NUR ---
Pt bib ems for abd pain from home today. Pt reports that she has had lower quadrant pain for about a week. Pt has hx of abd pain. Pt denies truama. Pt reports having some gi discomfort and increased bowel distress. Pt reports she had a colenectomy a few years back. Pt reports her pain as a sharp stabbing pain. Pt reports increased frequency and painful urination. Pt connected to monitors and UA sample collected. vss. Pt had piv fire prevention bureau captain and had 50mcg of fentanyly fire prevention bureau captain by ems.
[2019-08-25] MEDS ORDERED: SODIUM CHLORIDE FLUSH 10ML SYR IVF ONE (12:30)
[2019-08-25] MEDS ORDERED: HYDROmorphone 2 MG/ML, 1ML IVPush PRN (12:30)
[2019-08-25] MEDS ORDERED: ONDANSETRON 2MG/ML, 2ML IVPush ONE (12:30)
[2019-08-25 12:37] LABS: MICROSCOPIC NOT IND
[2019-08-25 12:45] LABS: CULTURE INDICATED? NO
[2019-08-25] MEDS ORDERED: PROMETHAZINE 25 MG/ML, 1ML ONE (12:47)
[2019-08-25] MEDS ORDERED: HYDROmorphone 1 MG/ML, 1ML INJ ONE (12:48)
[2019-08-25 12:57] LABS: BASOPHILS # (AUTO) 0.03 x10^3/uL (0-0.1); BASOPHILS % (AUTO) 1 % (0-1); EOSINOPHILS # (AUTO) 0.12 x10^3/uL (0-0.4); EOSINOPHILS % (AUTO) 3 % (1-7); LYMPHOCYTES # (AUTO) 1.71 x10^3/uL (1-3.4); LYMPHOCYTES % (AUTO) 35 % (22-44); MD NO; MEAN CORPUSCULAR HEMOGLOBIN 28.6 pg (27.0-34.8); MEAN CORPUSCULAR HGB CONC 32.3 g/dL (32.4-35.8); MEAN CORPUSCULAR VOLUME 88.5 fL (80-100); MEAN PLATELET VOLUME 8.4 fL (7.4-10.4); MONOCYTES # (AUTO) 0.29 x10^3/uL (0.2-0.8); MONOCYTES % (AUTO) 6 % (2-9); NEUTROPHILS # (AUTO) 2.73 x10^3/uL (1.8-6.8); NEUTROPHILS % (AUTO) 56 % (42-75); PLATELET COUNT 263 x10^3/uL (130-400); RED BLOOD COUNT 4.23 x10^6/uL (3.82-5.3); RED CELL DISTRIBUTION WIDTH 16.3 % (9.6-15.2)
[2019-08-25] MEDS ORDERED: PROMETHAZINE 25 MG/ML, 1ML IM ONE (13:00)
--- NOTE | 2019-08-25 13:00 | NUR ---
Pt medicated for pain
[2019-08-25 13:02] LABS: ALANINE AMINOTRANSFERASE 19 U/L (12-78); ALBUMIN 3.7 g/dL (3.4-5.0); ANION GAP 6 mmol/L (5-15); CALCIUM 8.5 mg/dL (8.5-10.1); CHLORIDE 112 mmol/L (98-107); CREATININE 0.83 mg/dL (0.55-1.02)
[2019-08-25 13:05] LABS: ALKALINE PHOSPHATASE 66 U/L (45-117); BILIRUBIN,TOTAL 0.6 mg/dL (0.2-1.0); TOTAL PROTEIN 7.1 g/dL (6.4-8.2)
[2019-08-25 13:44] VITALS: BP 122/64
--- NOTE | 2019-08-25 13:58 | NUR ---
Pt given warm blanket.
--- NOTE | 2019-08-25 14:44 | NUR ---
Patient/Caregiver given discharge instructions and they have confirmed that they understand the instructions. Patient ambulatory with steady gait. Given taxi voucher for safe dc.
== END 2019-08-25 14:54 | disposition home or self-care (01) ==
LOC: ED 14:43
DX: R10.84 Generalized abdominal pain (principal); E78.5 Hyperlipidemia, unspecified; I48.91 Unspecified atrial fibrillation; I10 Essential (primary) hypertension; K21.9 Gastro-esophageal reflux disease without esophagitis; F12.10 Cannabis abuse, uncomplicated; Z87.891 Personal history of nicotine dependence; Z72.89 Other problems related to lifestyle; Z90.89 Acquired absence of other organs; Z98.51 Tubal ligation status
CPT/HCPCS: 36415; 74176; 80053; 81003; 83690; 85025; 96372; 96374; 99284; J1170; J2550

== ENCOUNTER 2019-09-08 22:15 | Emergency (ER) | payer MEDICARE, MEDICAID ==
[~2019-09-08 22:15] MED LIST changes: -DIGO125T PO; +DIGO125T85 PO
--- NOTE | 2019-09-08 22:30 | NUR ---
[employer] CAKE DECORATOR TO BEDSIDE AT THIS TIME FOR ASSESSMENT. AWAITING ORDERS
[2019-09-08] MEDS ORDERED: KETOROLAC 30 MG/1 ML ONE (22:53)
[2019-09-08] MEDS ORDERED: DEXAMETHASONE 4 MG/ML, 5ML ONE (22:53)
[2019-09-08 22:56] VITALS: BP 109/63
[2019-09-08] MEDS ORDERED: ALBUTEROL/IPRATROPIUM 2.5MG/0.5MG, 3 ML ONE (22:58)
[2019-09-08] MEDS ORDERED: SODIUM CHLORIDE 0.9% 1,000ML IVBOLUS ONE (23:00)
[2019-09-08] MEDS ORDERED: SODIUM CHLORIDE FLUSH 10ML SYR IVF ONE (23:00)
[2019-09-08] MEDS ORDERED: ALBUTEROL/IPRATROPIUM 2.5MG/0.5MG, 3 ML NPPB ONE (23:00)
[2019-09-08] MEDS ORDERED: KETOROLAC 30 MG/1 ML IVPush ONE (23:00)
[2019-09-08] MEDS ORDERED: DEXAMETHASONE 4 MG/ML, 5ML IVPush ONE (23:00)
[2019-09-08 23:51] LABS: BASOPHILS # (AUTO) 0.05 x10^3/uL (0-0.1); BASOPHILS % (AUTO) 1 % (0-1); EOSINOPHILS # (AUTO) 0.09 x10^3/uL (0-0.4); EOSINOPHILS % (AUTO) 1 % (1-7); LYMPHOCYTES # (AUTO) 1.21 x10^3/uL (1-3.4); LYMPHOCYTES % (AUTO) 17 % (22-44); MD NO; MEAN CORPUSCULAR HEMOGLOBIN 29.1 pg (27.0-34.8); MEAN CORPUSCULAR HGB CONC 32.8 g/dL (32.4-35.8); MEAN CORPUSCULAR VOLUME 88.6 fL (80-100); MONOCYTES # (AUTO) 0.44 x10^3/uL (0.2-0.8); MONOCYTES % (AUTO) 6 % (2-9); NEUTROPHILS # (AUTO) 5.41 x10^3/uL (1.8-6.8); NEUTROPHILS % (AUTO) 75 % (42-75); PLATELET COUNT 315 x10^3/uL (130-400); RED BLOOD COUNT 4.32 x10^6/uL (3.82-5.3); RED CELL DISTRIBUTION WIDTH 15.7 % (9.6-15.2)
[2019-09-08 23:59] LABS: ALBUMIN 3.7 g/dL (3.4-5.0); ANION GAP 7 mmol/L (5-15); CALCIUM 9.3 mg/dL (8.5-10.1); CHLORIDE 110 mmol/L (98-107)
[2019-09-09 00:10] LABS: ALANINE AMINOTRANSFERASE 19 U/L (12-78); ALKALINE PHOSPHATASE 78 U/L (45-117); BILIRUBIN,TOTAL 0.3 mg/dL (0.2-1.0); CREATININE 0.79 mg/dL (0.55-1.02); FREE T4 (FREE THYROXINE) 1.33 ng/dL (0.76-1.46); TOTAL PROTEIN 7.2 g/dL (6.4-8.2)
[2019-09-09 00:40] LABS: MICROSCOPIC INDICATED
[2019-09-09] MEDS ORDERED: ONDANSETRON 2MG/ML, 2ML ONE (01:16)
[2019-09-09] MEDS ORDERED: ONDANSETRON 2MG/ML, 2ML IVPush ONE (01:30)
[2019-09-24] MEDS ORDERED: MECL-101 PO (14:40)
== END 2019-09-09 01:35 | disposition home or self-care (01) ==
LOC: ED 22:37
DX: J00 Acute nasopharyngitis [common cold] (principal); R11.10 Vomiting, unspecified; B34.9 Viral infection, unspecified; I48.91 Unspecified atrial fibrillation; G89.29 Other chronic pain; K21.9 Gastro-esophageal reflux disease without esophagitis; E78.5 Hyperlipidemia, unspecified; I10 Essential (primary) hypertension; Z90.89 Acquired absence of other organs; Z98.51 Tubal ligation status
CPT/HCPCS: 36415; 71045; 80053; 81001; 84439; 84443; 85025; 93005; 94640; 96361; 96374; 96375; 99284; J1100; J1885; J2405; J7030; J7620

== ENCOUNTER 2019-09-23 12:45 | Observation (INO) | payer MEDICARE, MEDICAID ==
[~2019-09-23] VITALS: Ht 165.1 cm; Wt 80.1 kg
[~2019-09-23 12:45] MED LIST changes: +DIGO125T PO; -DIGO125T85 PO
[2019-09-23] MEDS ORDERED: SODIUM CHLORIDE 0.9% 1,000 ML IV ONE (13:21)
[2019-09-23] MEDS ORDERED: SODIUM CHLORIDE FLUSH 10ML SYR IVF ONE (13:30)
[2019-09-23] MEDS ORDERED: ONDANSETRON 2MG/ML, 2ML IVPush ONE (13:30)
[2019-09-23] MEDS ORDERED: MORPHINE SULFATE 4 MG/ML, 1ML IVPush PRN (13:30)
[2019-09-23] MEDS ORDERED: MORPHINE SULFATE 4 MG/ML, 1ML ONE (13:39)
[2019-09-23] MEDS ORDERED: ONDANSETRON 2MG/ML, 2ML ONE (13:39)
[2019-09-23 13:56] LABS: BASOPHILS # (AUTO) 0.02 x10^3/uL (0-0.1); BASOPHILS % (AUTO) 1 % (0-1); EOSINOPHILS # (AUTO) 0.03 x10^3/uL (0-0.4); EOSINOPHILS % (AUTO) 1 % (1-7); LYMPHOCYTES # (AUTO) 1.27 x10^3/uL (1-3.4); LYMPHOCYTES % (AUTO) 27 % (22-44); MD NO; MEAN CORPUSCULAR HEMOGLOBIN 29.3 pg (27.0-34.8); MEAN CORPUSCULAR HGB CONC 33.3 g/dL (32.4-35.8); MEAN PLATELET VOLUME 8.6 fL (7.4-10.4); MONOCYTES # (AUTO) 0.28 x10^3/uL (0.2-0.8); MONOCYTES % (AUTO) 6 % (2-9); NEUTROPHILS # (AUTO) 3.11 x10^3/uL (1.8-6.8); NEUTROPHILS % (AUTO) 66 % (42-75); PLATELET COUNT 248 x10^3/uL (130-400); RED BLOOD COUNT 3.83 x10^6/uL (3.82-5.3); RED CELL DISTRIBUTION WIDTH 16.3 % (9.6-15.2)
[2019-09-23 14:07] LABS: ALANINE AMINOTRANSFERASE 15 U/L (12-78); ALBUMIN 3.4 g/dL (3.4-5.0); ANION GAP 6 mmol/L (5-15); CALCIUM 8.4 mg/dL (8.5-10.1); CHLORIDE 112 mmol/L (98-107)
[2019-09-23 14:09] LABS: ALKALINE PHOSPHATASE 62 U/L (45-117); BILIRUBIN,TOTAL 0.6 mg/dL (0.2-1.0); TOTAL PROTEIN 6.5 g/dL (6.4-8.2)
[2019-09-23] MEDS ORDERED: MECLIZINE CHEWABLE 25 MG TAB PO ONE (14:30)
[2019-09-23] MEDS ORDERED: MECLIZINE CHEWABLE 25 MG TAB ONE (14:32)
--- NOTE | 2019-09-23 14:51 | NUR ---
PT MEDICATED PER ORDER. PT TOLERATED PO FLUIDS
[2019-09-23] MEDS ORDERED: OMNIPAQUE 350 MG/ML, 100ML BOTTLE ONE (14:54)
[2019-09-23 16:02] VITALS: BP 108/65
[2019-09-23 16:23] LABS: MICROSCOPIC NOT IND
[2019-09-23 16:35] LABS: CULTURE INDICATED? NO
[2019-09-23 16:56] VITALS: BP 108/65
[2019-09-23] MEDS ORDERED: ONDANSETRON 2MG/ML, 2ML IVPush PRN (18:00)
[2019-09-23] MEDS ORDERED: ONDANSETRON ODT 4 MG PO PRN (18:00)
[2019-09-23] MEDS ORDERED: LABETALOL 5MG/ML, 20ML IV PRN (18:00)
[2019-09-23 18:22] LABS: FREE T4 (FREE THYROXINE) 1.11 ng/dL (0.76-1.46)
[2019-09-23] MEDS ORDERED: MECLIZINE 25 MG TABLET PO PRN (18:30)
[2019-09-23] MEDS: OMEPRAZOLE 20 MG CAPSULE.DR PO SCH (18:36)
[2019-09-23] MEDS: SODIUM CHLORIDE 0.9% 1,000 ML IV SCH (18:36)
[2019-09-23] MEDS: MORPHINE SULFATE 4 MG/ML, 1ML IVPush PRN (18:47)
[2019-09-23 19:04] VITALS: BP 98/62
[2019-09-23] MEDS: APIXABAN 5 MG TABLET PO SCH (20:03)
[2019-09-23] MEDS ORDERED: ATORVASTATIN 40 MG TABLET PO SCH (21:00)
[2019-09-24 00:20] VITALS: BP 97/60
[2019-09-24] MEDS: MORPHINE SULFATE 4 MG/ML, 1ML IVPush PRN ×3 (00:42→13:29)
[2019-09-24] MEDS: SODIUM CHLORIDE 0.9% 1,000 ML IV SCH ×2 (02:34→13:29)
[2019-09-24 05:38] LABS: BASOPHILS # (AUTO) 0.03 x10^3/uL (0-0.1); BASOPHILS % (AUTO) 1 % (0-1); EOSINOPHILS % (AUTO) 2 % (1-7); LYMPHOCYTES % (AUTO) 38 % (22-44); MD NO; MEAN CORPUSCULAR HGB CONC 33.6 g/dL (32.4-35.8); MEAN CORPUSCULAR VOLUME 89.2 fL (80-100); MONOCYTES # (AUTO) 0.31 x10^3/uL (0.2-0.8); MONOCYTES % (AUTO) 7 % (2-9); NEUTROPHILS # (AUTO) 2.34 x10^3/uL (1.8-6.8); NEUTROPHILS % (AUTO) 52 % (42-75); PLATELET COUNT 195 x10^3/uL (130-400); RED BLOOD COUNT 3.47 x10^6/uL (3.82-5.3); RED CELL DISTRIBUTION WIDTH 16.7 % (9.6-15.2)
[2019-09-24 05:48] LABS: CHLORIDE 116 mmol/L (98-107)
[2019-09-24 06:00] LABS: ALANINE AMINOTRANSFERASE 11 U/L (12-78); ALBUMIN 2.7 g/dL (3.4-5.0); ALKALINE PHOSPHATASE 59 U/L (45-117); ANION GAP 6 mmol/L (5-15); BILIRUBIN,TOTAL 0.3 mg/dL (0.2-1.0); CALCIUM 8.1 mg/dL (8.5-10.1); CHOL/HDL RATIO 2.9; CHOLESTEROL, TOTAL 98 mg/dL (140-239); CREATININE 0.76 mg/dL (0.55-1.02); HDL CHOL % 35 % (28-40); HDL CHOLESTEROL (DIRECT) 34 mg/dL (40-60); LDL CHOLESTEROL,CALCULATED 52 mg/dL (54-169); LDL/HDL RATIO 1.5 (0.5-3.0); TOTAL PROTEIN 5.4 g/dL (6.4-8.2); TRIGLYCERIDES 58 mg/dL (50-200); VLDL CHOLESTEROL 12 mg/dL (0-25)
[2019-09-24] MEDS ORDERED: ASPIRIN 81 MG TABLET EC PO SCH (06:00)
[2019-09-24] MEDS: OMEPRAZOLE 20 MG CAPSULE.DR PO SCH ×2 (06:45→15:31)
[2019-09-24] MEDS ORDERED: LORazepam 2 MG/ML, 1ML ONE (07:23)
[2019-09-24] MEDS ORDERED: LORazepam 2 MG/ML, 1ML IVPush ONE ×2 (07:30)
[2019-09-24 07:55] VITALS: BP 113/69
[2019-09-24] MEDS ORDERED: GADOTERATE 7.5 MMOL/15 ML SYR ONE (08:09)
[2019-09-24] MEDS: APIXABAN 5 MG TABLET PO SCH (08:19)
[2019-09-24 13:46] VITALS: BP 117/61
[2019-09-24] MEDS ORDERED: MECL25TA4 PO (14:40)
[2019-09-24] MEDS ORDERED: ATOR40TA78 PO (14:40)
[2019-09-24] MEDS ORDERED: OMEP-110 PO (14:40)
== END 2019-09-24 18:02 | disposition home or self-care (01) ==
LOC: ED 14:28 → INTOOBSV 14:29 → EDIP 14:29 → ED 14:33 → 3N 16:02
PROVIDERS: ADMIT Internal Medicine; ATTEND Hospitalist
DX: R42 Dizziness and giddiness (principal); I48.91 Unspecified atrial fibrillation; D68.69 Other thrombophilia; D64.9 Anemia, unspecified; M54.9 Dorsalgia, unspecified; G89.29 Other chronic pain; E70.1 Other hyperphenylalaninemias; M48.56XA Collapsed vertebra, not elsewhere classified, lumbar region, initial encounter for fracture; F32.9 Major depressive disorder, single episode, unspecified; I10 Essential (primary) hypertension; Z79.01 Long term (current) use of anticoagulants; Z87.891 Personal history of nicotine dependence
CPT/HCPCS: 36415; 70450; 70553; 72125; 74177; 80053; 80061; 81003; 83690; 83735; 84100; 84439; 84443; 85025; 92523; 93005; 93306; 93880; 96361; 96374; 96375; 96376; 97116; 97163; 97530; 99284; A9575; G0378; J2060; J2270; J2405; J7030; Q9967

== ENCOUNTER 2019-10-03 13:44 | Emergency (ER) | payer MEDICARE, MEDICAID ==
[~2019-10-03] VITALS: Ht 160 cm; Wt 78.2 kg
[~2019-10-03 13:44] MED LIST changes: +ATOR40TA78 PO; -DIGO125T PO; +DIGO125T85 PO; +MECL-101 PO; +OMEP-110 PO
--- NOTE | 2019-10-03 14:42 | NUR ---
PT TO RM FROM LOBBY
[2019-10-03] MEDS ORDERED: ONDANSETRON 2MG/ML, 2ML IVPush ONE (15:00)
[2019-10-03] MEDS ORDERED: SODIUM CHLORIDE FLUSH 10ML SYR IVF ONE (15:00)
[2019-10-03] MEDS ORDERED: ONDANSETRON 2MG/ML, 2ML ONE (15:03)
[2019-10-03] MEDS ORDERED: HYDROmorphone 1 MG/ML, 1ML INJ ONE ×3 (15:03→18:00)
[2019-10-03] MEDS: HYDROmorphone 2 MG/ML, 1ML IVPush PRN ×2 (15:07→16:04)
--- NOTE | 2019-10-03 15:16 | NUR ---
PT CAME IN CO OF SEVERE ABD PAIN. SHE HAD A COLEN RESECTION 6 MONTHS AGO. FOR 6 MONTHS SHES FELT PAIN AND NAUSEA. BLANKET PROVIDED. UA SENT. SEE MAR FOR INTERVENTIONS
[2019-10-03 15:18] LABS: BASOPHILS # (AUTO) 0.02 x10^3/uL (0-0.1); BASOPHILS % (AUTO) 0 % (0-1); EOSINOPHILS # (AUTO) 0.12 x10^3/uL (0-0.4); EOSINOPHILS % (AUTO) 2 % (1-7); LYMPHOCYTES # (AUTO) 1.77 x10^3/uL (1-3.4); LYMPHOCYTES % (AUTO) 31 % (22-44); MD NO; MEAN CORPUSCULAR HEMOGLOBIN 29.4 pg (27.0-34.8); MEAN CORPUSCULAR HGB CONC 33.3 g/dL (32.4-35.8); MEAN CORPUSCULAR VOLUME 88.3 fL (80-100); MEAN PLATELET VOLUME 8.7 fL (7.4-10.4); MONOCYTES # (AUTO) 0.35 x10^3/uL (0.2-0.8); MONOCYTES % (AUTO) 6 % (2-9); NEUTROPHILS # (AUTO) 3.37 x10^3/uL (1.8-6.8); NEUTROPHILS % (AUTO) 60 % (42-75); PLATELET COUNT 247 x10^3/uL (130-400); RED BLOOD COUNT 3.97 x10^6/uL (3.82-5.3); RED CELL DISTRIBUTION WIDTH 16.8 % (9.6-15.2)
[2019-10-03 15:20] LABS: ALANINE AMINOTRANSFERASE 17 U/L (12-78); ALBUMIN 3.5 g/dL (3.4-5.0); ANION GAP 5 mmol/L (5-15); CALCIUM 8.7 mg/dL (8.5-10.1); CHLORIDE 111 mmol/L (98-107); CREATININE 0.81 mg/dL (0.55-1.02)
[2019-10-03 15:22] LABS: ALKALINE PHOSPHATASE 78 U/L (45-117); BILIRUBIN,TOTAL 0.3 mg/dL (0.2-1.0); TOTAL PROTEIN 6.9 g/dL (6.4-8.2)
[2019-10-03 15:32] LABS: MICROSCOPIC NOT IND
[2019-10-03 15:40] LABS: CULTURE INDICATED? NO
--- NOTE | 2019-10-03 16:08 | NUR ---
PT RESTING IN [facility]. STATING HER PAIN IS STILL A 8/10. ANOTHER WARM BLANKET PROVIDED. SEE MAR FOR INTERVENTIONS
--- NOTE | 2019-10-03 16:58 | NUR ---
PT REASSEMENT: REPORTS PAIN LEVEL OF 8/10. SAYS PAIN HAS MOVED FROM ABD TO BACK.
[2019-10-03] MEDS ORDERED: HYDROmorphone 2 MG/ML, 1ML IVPush PRN (18:00)
[2019-10-03 18:03] VITALS: BP 140/77
--- NOTE | 2019-10-03 18:04 | NUR ---
PT RESTING IN [facility]. BLANKET PROVIDED.
[2019-10-03] MEDS ORDERED: OMNIPAQUE 350 MG/ML, 100ML BOTTLE ONE (18:05)
== END 2019-10-03 19:29 | disposition home or self-care (01) ==
LOC: ED 16:22
DX: R10.84 Generalized abdominal pain (principal); K21.9 Gastro-esophageal reflux disease without esophagitis; G89.29 Other chronic pain; I48.91 Unspecified atrial fibrillation; I10 Essential (primary) hypertension; E78.5 Hyperlipidemia, unspecified
CPT/HCPCS: 36415; 74177; 80053; 81003; 83605; 83690; 85025; 96374; 96375; 96376; 99284; J1170; J2405; Q9967

== ENCOUNTER 2019-10-06 15:21 | Emergency (ER) | payer MEDICARE, MEDICAID ==
[~2019-10-06] VITALS: Ht 160 cm; Wt 77.5 kg
[2019-10-06] MEDS ORDERED: HYDROmorphone 1 MG/ML, 1ML INJ ONE ×2 (16:11→16:44)
[2019-10-06] MEDS ORDERED: ONDANSETRON 2MG/ML, 2ML ONE (16:11)
[2019-10-06] MEDS: HYDROmorphone 2 MG/ML, 1ML IVPush PRN ×2 (16:19→16:47)
[2019-10-06 16:24] LABS: BASOPHILS # (AUTO) 0.03 x10^3/uL (0-0.1); BASOPHILS % (AUTO) 1 % (0-1); EOSINOPHILS # (AUTO) 0.07 x10^3/uL (0-0.4); EOSINOPHILS % (AUTO) 1 % (1-7); LYMPHOCYTES # (AUTO) 1.74 x10^3/uL (1-3.4); LYMPHOCYTES % (AUTO) 27 % (22-44); MD NO; MEAN CORPUSCULAR HGB CONC 32.5 g/dL (32.4-35.8); MEAN CORPUSCULAR VOLUME 89.3 fL (80-100); MEAN PLATELET VOLUME 7.9 fL (7.4-10.4); MONOCYTES # (AUTO) 0.32 x10^3/uL (0.2-0.8); MONOCYTES % (AUTO) 5 % (2-9); NEUTROPHILS # (AUTO) 4.32 x10^3/uL (1.8-6.8); NEUTROPHILS % (AUTO) 67 % (42-75); PLATELET COUNT 276 x10^3/uL (130-400); RED BLOOD COUNT 4.09 x10^6/uL (3.82-5.3); RED CELL DISTRIBUTION WIDTH 17.3 % (9.6-15.2)
[2019-10-06] MEDS ORDERED: SODIUM CHLORIDE 0.9% 1,000ML IVBOLUS ONE (16:30)
[2019-10-06] MEDS ORDERED: SODIUM CHLORIDE FLUSH 10ML SYR IVF ONE (16:30)
[2019-10-06] MEDS ORDERED: ONDANSETRON 2MG/ML, 2ML IVPush ONE (16:30)
[2019-10-06 16:38] LABS: ALBUMIN 3.7 g/dL (3.4-5.0); ANION GAP 7 mmol/L (5-15); CALCIUM 8.6 mg/dL (8.5-10.1); CHLORIDE 110 mmol/L (98-107)
[2019-10-06 16:41] LABS: ALANINE AMINOTRANSFERASE 22 U/L (12-78); ALKALINE PHOSPHATASE 71 U/L (45-117); BILIRUBIN,TOTAL 0.7 mg/dL (0.2-1.0); CREATININE 0.85 mg/dL (0.55-1.02); TOTAL PROTEIN 7.2 g/dL (6.4-8.2)
--- NOTE | 2019-10-06 16:42 | NUR ---
PT DENIES ABILITY TO PRODUCE UA AT THIS TIME. REFUSES STRAIGHT CATH
--- NOTE | 2019-10-06 16:58 | NUR ---
REPORT FROM BENITA COOMBS.
--- NOTE | 2019-10-06 17:08 | NUR ---
PT BACK FROM CT.
[2019-10-06] MEDS ORDERED: OMNIPAQUE 350 MG/ML, 100ML BOTTLE ONE (17:14)
--- NOTE | 2019-10-06 17:31 | NUR ---
PT OOB TO BATHROOM GAIT STEADY 1 PERSON ASSIST UA SENT. STS PAIN IMPROVED TO 8/10. VSS. NO NEEDS AT THIS TIME.
[2019-10-06 18:12] LABS: CULTURE INDICATED? NO; MICROSCOPIC NOT IND
--- NOTE | 2019-10-06 18:12 | NUR ---
CT: IMPRESSION: Slight distention of loops of small bowel in the left upper quadrant is new since prior study, significance uncertain. No specific evidence of small bowel obstruction.
--- NOTE | 2019-10-06 18:25 | NUR ---
MONICAM IN ROOM FOR UPDATE.
[2019-10-06 19:07] VITALS: BP 129/55
== END 2019-10-06 19:09 | disposition home or self-care (01) ==
LOC: ED 19:00
DX: R10.84 Generalized abdominal pain (principal); R42 Dizziness and giddiness; K60.0 Acute anal fissure; I48.91 Unspecified atrial fibrillation; I10 Essential (primary) hypertension; Z87.891 Personal history of nicotine dependence
CPT/HCPCS: 36415; 74177; 80053; 81003; 83690; 85025; 93005; 96361; 96374; 96375; 99285; J1170; J2405; J7030; Q9967

== ENCOUNTER 2019-10-13 12:30 | Outpatient (CLI) | payer MEDICARE, MEDICAID ==
[2019-10-13] MEDS ORDERED: FENTANYL PF 100 MCG/2ML ONE (13:12)
[2019-10-13] MEDS ORDERED: FLUMAZENIL 0.1 MG/1 ML, 5ML ONE (13:12)
[2019-10-13] MEDS ORDERED: NALOXONE 1 MG/ML, 2ML ONE (13:12)
[2019-10-13] MEDS ORDERED: MIDAZOLAM 1 MG/ML, 5ML ONE (13:12)
== END 2019-10-13 23:59 | disposition home or self-care (01) ==
LOC: RAD 12:30
PROVIDERS: ATTEND Nurse Practitioner Family
DX: K52.9 Noninfective gastroenteritis and colitis, unspecified (principal); K59.00 Constipation, unspecified; I48.91 Unspecified atrial fibrillation; R10.9 Unspecified abdominal pain; Z88.0 Allergy status to penicillin; Z88.5 Allergy status to narcotic agent
CPT/HCPCS: 74183; 99156; 99157; J2250; J3010; J2310

== ENCOUNTER 2019-10-18 15:24 | Emergency (ER) | payer MEDICARE, MEDICAID ==
[~2019-10-18] VITALS: Ht 160 cm; Wt 72.5 kg
[2019-10-18 15:26] VITALS: BP 111/77
--- NOTE | 2019-10-18 15:35 | NUR ---
pt biba for c/o periumbilical pain onset 45 min ago with n/v. 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 pt is compliant with eliquis prescribed for afib. pt given 100mcg fentanyl and 4 mg zofran travel pta per ems, states pain remains at 10/10. report received from ems. pt attached to bp and spo2 monitors. call light in reach. pt dressed in gown. report given to CORIN Marie who is to assume care.
--- NOTE | 2019-10-18 15:56 | NUR ---
AT BEDSIDE FOR ASSESSMENT
[2019-10-18 16:18] LABS: BASOPHILS # (AUTO) 0.05 x10^3/uL (0-0.1); BASOPHILS % (AUTO) 1 % (0-1); EOSINOPHILS # (AUTO) 0.05 x10^3/uL (0-0.4); EOSINOPHILS % (AUTO) 1 % (1-7); LYMPHOCYTES # (AUTO) 1.22 x10^3/uL (1-3.4); LYMPHOCYTES % (AUTO) 27 % (22-44); MD NO; MEAN CORPUSCULAR HEMOGLOBIN 29.2 pg (27.0-34.8); MEAN CORPUSCULAR HGB CONC 32.7 g/dL (32.4-35.8); MEAN CORPUSCULAR VOLUME 89.1 fL (80-100); MEAN PLATELET VOLUME 8.2 fL (7.4-10.4); MONOCYTES % (AUTO) 7 % (2-9); NEUTROPHILS # (AUTO) 2.87 x10^3/uL (1.8-6.8); NEUTROPHILS % (AUTO) 64 % (42-75); PLATELET COUNT 271 x10^3/uL (130-400); RED BLOOD COUNT 4.18 x10^6/uL (3.82-5.3); RED CELL DISTRIBUTION WIDTH 16.9 % (9.6-15.2)
[2019-10-18 16:30] LABS: ALANINE AMINOTRANSFERASE 19 U/L (12-78); ALBUMIN 3.6 g/dL (3.4-5.0); ANION GAP 5 mmol/L (5-15); CALCIUM 8.6 mg/dL (8.5-10.1); CHLORIDE 114 mmol/L (98-107); CREATININE 0.76 mg/dL (0.55-1.02)
[2019-10-18 16:32] LABS: ALKALINE PHOSPHATASE 73 U/L (45-117); BILIRUBIN,TOTAL 0.3 mg/dL (0.2-1.0); TOTAL PROTEIN 7.1 g/dL (6.4-8.2)
== END 2019-10-18 17:14 | disposition home or self-care (01) ==
LOC: ED 16:51
DX: R10.84 Generalized abdominal pain (principal); R11.10 Vomiting, unspecified; I10 Essential (primary) hypertension; K21.9 Gastro-esophageal reflux disease without esophagitis; E78.5 Hyperlipidemia, unspecified; I48.91 Unspecified atrial fibrillation; Z90.89 Acquired absence of other organs; G89.29 Other chronic pain
CPT/HCPCS: 36415; 80053; 83605; 83690; 85025; 99283

== ENCOUNTER 2019-10-24 12:35 | Day surgery (SDC) | payer MEDICARE, MEDICAID ==
[~2019-10-24] VITALS: Ht 160 cm; Wt 75.9 kg
[2019-10-24 13:44] VITALS: BP 124/85
[2019-10-24] MEDS ORDERED: ROCURONIUM 10MG/ML,5ML ONE (13:46)
[2019-10-24] MEDS ORDERED: SUCCINYLCHOLINE 20 MG/ML, 10ML ONE (13:46)
[2019-10-24] MEDS ORDERED: CEFAZOLIN 1,000 MG ONE (13:46)
[2019-10-24] MEDS ORDERED: MIDAZOLAM 1 MG/ML, 5ML ONE (13:46)
[2019-10-24] MEDS ORDERED: DEXAMETHASONE 4 MG/ML, 1ML ONE (13:46)
[2019-10-24] MEDS ORDERED: LACTATED RINGERS 1,000 ML IV SCH (13:51)
[2019-10-24] MEDS ORDERED: DICYCLOMINE HCL PO (13:55)
[2019-10-24] MEDS ORDERED: PROPOFOL 10 MG/ML, 20ML ONE (15:44)
[2019-10-24] MEDS ORDERED: GADOTERATE 7.5 MMOL/15 ML VIAL ONE (16:13)
[2019-10-24] MEDS ORDERED: ONDANSETRON 2MG/ML, 2ML ONE (16:42)
[2019-10-24] MEDS ORDERED: OXYcodone 5 MG/5 ML ORAL.SOL UDC PO PRN (17:00)
[2019-10-24] MEDS ORDERED: MIDAZOLAM 1 MG/ML, 2ML IV PRN (17:00)
[2019-10-24] MEDS ORDERED: DIAZEPAM 5 MG/ML, 2ML IVPush PRN (17:00)
[2019-10-24] MEDS ORDERED: LABETALOL 5MG/ML, 20ML IV PRN (17:00)
[2019-10-24] MEDS ORDERED: ALBUTEROL SULFATE 2.5 MG/3 ML NPPB PRN (17:00)
[2019-10-24] MEDS ORDERED: hydrALAzine 20 MG/ML, 1ML IV PRN (17:00)
[2019-10-24] MEDS ORDERED: ONDANSETRON 2MG/ML, 2ML IV PRN (17:00)
[2019-10-24] MEDS ORDERED: PROMETHAZINE 12.5 MG SUPP PR PRN (17:00)
[2019-10-24] MEDS ORDERED: HYDROmorphone 2 MG/ML, 1ML IVPush PRN (17:00)
[2019-10-24] MEDS ORDERED: PROMETHAZINE 25 MG/ML, 1ML IV PRN (17:00)
[2019-10-24] MEDS ORDERED: EPHEDRINE 50 MG/ML, 1ML IVPush PRN (17:00)
[2019-10-24] MEDS ORDERED: ONDANSETRON ODT 8 MG PO PRN (17:00)
[2019-10-24] MEDS ORDERED: MEPERIDINE/PF 25MG/ML,1ML IVPush PRN (17:00)
[2019-10-24] MEDS ORDERED: FENTANYL PF 100 MCG/2ML IV PRN (17:00)
[2019-10-24] MEDS ORDERED: OXYcodone 5 MG/5 ML ORAL.SOL UDC ONE (17:29)
== END 2019-10-24 18:20 | disposition home or self-care (01) ==
LOC: OR 12:35
PROVIDERS: ATTEND Nurse Practitioner Family
DX: R10.9 Unspecified abdominal pain (principal); I48.91 Unspecified atrial fibrillation; F32.9 Major depressive disorder, single episode, unspecified; I73.9 Peripheral vascular disease, unspecified; Z88.0 Allergy status to penicillin; Z88.8 Allergy status to other drugs, medicaments and biological substances; K52.89 Other specified noninfective gastroenteritis and colitis
CPT/HCPCS: 74183; A9575; J0330; J0690; J1100; J2250; J2405; J2704

== ENCOUNTER 2019-10-30 17:01 | Emergency (ER) | payer MEDICARE, MEDICAID ==
[~2019-10-30] VITALS: Ht 172.7 cm; Wt 72.0 kg
[~2019-10-30 17:01] MED LIST changes: +DICYCLOMINE HCL PO
[2019-10-30 18:04] LABS: BASOPHILS # (AUTO) 0.05 x10^3/uL (0-0.1); BASOPHILS % (AUTO) 1 % (0-1); EOSINOPHILS # (AUTO) 0.13 x10^3/uL (0-0.4); EOSINOPHILS % (AUTO) 2 % (1-7); LYMPHOCYTES # (AUTO) 1.88 x10^3/uL (1-3.4); LYMPHOCYTES % (AUTO) 31 % (22-44); MD NO; MEAN CORPUSCULAR HEMOGLOBIN 29.6 pg (27.0-34.8); MEAN CORPUSCULAR HGB CONC 33.5 g/dL (32.4-35.8); MEAN CORPUSCULAR VOLUME 88.2 fL (80-100); MEAN PLATELET VOLUME 8.4 fL (7.4-10.4); MONOCYTES # (AUTO) 0.37 x10^3/uL (0.2-0.8); MONOCYTES % (AUTO) 6 % (2-9); NEUTROPHILS # (AUTO) 3.56 x10^3/uL (1.8-6.8); NEUTROPHILS % (AUTO) 59 % (42-75); PLATELET COUNT 255 x10^3/uL (130-400); RED BLOOD COUNT 4.04 x10^6/uL (3.82-5.3); RED CELL DISTRIBUTION WIDTH 16.5 % (9.6-15.2)
[2019-10-30 18:19] LABS: ALANINE AMINOTRANSFERASE 21 U/L (12-78); ALBUMIN 3.6 g/dL (3.4-5.0); ANION GAP 6 mmol/L (5-15); CALCIUM 8.5 mg/dL (8.5-10.1); CHLORIDE 111 mmol/L (98-107); CREATININE 0.86 mg/dL (0.55-1.02)
[2019-10-30 18:21] LABS: ALKALINE PHOSPHATASE 96 U/L (45-117); BILIRUBIN,TOTAL 0.2 mg/dL (0.2-1.0)
--- NOTE | 2019-10-30 19:44 | NUR ---
PT TO TRIAGE, VS RECHECKED, URINE CUP PROVIDED FOR SAMPLE
--- NOTE | 2019-10-30 19:53 | NUR ---
URINE SAMPLE SENT TO LAB
[2019-10-30 19:59] LABS: MICROSCOPIC NOT IND
[2019-10-30 20:01] LABS: CULTURE INDICATED? NO
[2019-10-30] MEDS ORDERED: ZIPRASIDONE 20 MG INJ IM ONE ×2 (21:46→22:00)
[2019-10-30] MEDS ORDERED: HYDROmorphone 1 MG/ML, 1ML INJ ONE (21:46)
[2019-10-30] MEDS ORDERED: ONDANSETRON 2MG/ML, 2ML ONE (21:46)
[2019-10-30] MEDS ORDERED: SODIUM CHLORIDE 0.9% 1,000ML IVBOLUS ONE (22:00)
[2019-10-30] MEDS ORDERED: ONDANSETRON 2MG/ML, 2ML IVPush ONE (22:00)
[2019-10-30] MEDS ORDERED: HYDROmorphone 2 MG/ML, 1ML IVPush PRN (22:00)
[2019-10-30 23:42] VITALS: BP 139/0
== END 2019-10-30 23:59 | disposition home or self-care (01) ==
LOC: ED 19:01
DX: G89.29 Other chronic pain (principal); I10 Essential (primary) hypertension; R10.84 Generalized abdominal pain; I25.2 Old myocardial infarction; R11.2 Nausea with vomiting, unspecified; K21.9 Gastro-esophageal reflux disease without esophagitis; E78.5 Hyperlipidemia, unspecified; Z87.891 Personal history of nicotine dependence; Z90.89 Acquired absence of other organs; Z98.51 Tubal ligation status
CPT/HCPCS: 36415; 74021; 80053; 81003; 83690; 85025; 96361; 96372; 96374; 96375; 99284; J1170; J2405; J3486; J7030

== ENCOUNTER → 2020-01-09 | Outpatient (CLI) | payer MEDICARE, MEDICAID | END | disposition home or self-care (01) | LOC: RAD 08:32 | PROVIDERS: ATTEND Physician Assistant | DX: K59.00 Constipation, unspecified (principal); M99.05 Segmental and somatic dysfunction of pelvic region | CPT/HCPCS: 74270 ==

== ENCOUNTER 2020-03-11 20:50 | Emergency (ER) | payer MEDICARE, MEDICAID ==
[~2020-03-11] VITALS: Ht 160 cm; Wt 72.3 kg
[2020-03-11] MEDS ORDERED: KETOROLAC 30 MG/1 ML ONE (21:18)
[2020-03-11] MEDS ORDERED: KETOROLAC 30 MG/1 ML IVPush ONE (21:30)
[2020-03-11] MEDS ORDERED: ONDANSETRON 2MG/ML, 2ML IVPush ONE (21:30)
[2020-03-11] MEDS ORDERED: SODIUM CHLORIDE FLUSH 10ML SYR IVF ONE (21:30)
[2020-03-11] MEDS ORDERED: HYDROmorphone 1 MG/ML, 1ML INJ IV ONE (21:30)
[2020-03-11 21:35] LABS: BASOPHILS # (AUTO) 0.04 x10^3/uL (0-0.1); BASOPHILS % (AUTO) 1 % (0-1); EOSINOPHILS # (AUTO) 0.12 x10^3/uL (0-0.4); EOSINOPHILS % (AUTO) 2 % (1-7); LYMPHOCYTES # (AUTO) 1.78 x10^3/uL (1-3.4); LYMPHOCYTES % (AUTO) 25 % (22-44); MD NO; MEAN CORPUSCULAR HEMOGLOBIN 29.7 pg (27.0-34.8); MEAN CORPUSCULAR HGB CONC 32.8 g/dL (32.4-35.8); MEAN CORPUSCULAR VOLUME 90.4 fL (80-100); MEAN PLATELET VOLUME 8.6 fL (7.4-10.4); MONOCYTES # (AUTO) 0.38 x10^3/uL (0.2-0.8); MONOCYTES % (AUTO) 5 % (2-9); NEUTROPHILS # (AUTO) 4.81 x10^3/uL (1.8-6.8); NEUTROPHILS % (AUTO) 67 % (42-75); PLATELET COUNT 287 x10^3/uL (130-400); RED BLOOD COUNT 4.27 x10^6/uL (3.82-5.3); RED CELL DISTRIBUTION WIDTH 15.6 % (9.6-15.2)
[2020-03-11 21:41] LABS: ALANINE AMINOTRANSFERASE 23 U/L (12-78); ALBUMIN 3.8 g/dL (3.4-5.0); ANION GAP 7 mmol/L (5-15); CALCIUM 8.7 mg/dL (8.5-10.1); CHLORIDE 110 mmol/L (98-107); CREATININE 0.94 mg/dL (0.55-1.02)
[2020-03-11 21:45] LABS: ALKALINE PHOSPHATASE 76 U/L (45-117); BILIRUBIN,TOTAL 0.4 mg/dL (0.2-1.0); TOTAL PROTEIN 7.3 g/dL (6.4-8.2); TROPONIN I < 0.015 ng/mL (0.000-0.045)
[2020-03-11] MEDS ORDERED: OXYcodone/APAP 5/325MG TABLET ONE (22:49)
[2020-03-11 23:00] VITALS: BP 119/56
[2020-03-11] MEDS ORDERED: OXYcodone/APAP 5/325MG TABLET PO ONE (23:00)
[2020-03-11] MEDS ORDERED: HYDROcodone/APAP 5/325 TABLET PO ONE (23:00)
== END 2020-03-11 23:02 | disposition home or self-care (01) ==
LOC: ED 22:39
DX: R07.89 Other chest pain (principal); R11.2 Nausea with vomiting, unspecified; M54.5 Low back pain; I48.91 Unspecified atrial fibrillation; K21.9 Gastro-esophageal reflux disease without esophagitis; I10 Essential (primary) hypertension; E78.5 Hyperlipidemia, unspecified; Z90.89 Acquired absence of other organs
CPT/HCPCS: 36415; 71045; 80053; 84484; 85025; 93005; 96374; 99285; J1885

== ENCOUNTER 2020-03-16 14:25 | Emergency (ER) | payer MEDICARE, MEDICAID ==
[~2020-03-16] VITALS: Ht 160 cm; Wt 75.0 kg
[2020-03-16] MEDS ORDERED: FLEC100T PO (14:43)
[2020-03-16] MEDS ORDERED: KETOROLAC 30 MG/1 ML ONE (14:51)
[2020-03-16] MEDS ORDERED: ACETAMINOPHEN 325 MG TABLET ONE (14:51)
[2020-03-16] MEDS ORDERED: ACETAMINOPHEN 325 MG TABLET PO ONE (15:00)
[2020-03-16] MEDS ORDERED: KETOROLAC 30 MG/1 ML IM ONE (15:00)
[2020-03-16] MEDS ORDERED: OXYcodone/APAP 5/325MG TABLET PO ONE (16:00)
[2020-03-16] MEDS ORDERED: OXYcodone/APAP 5/325MG TABLET ONE (16:23)
[2020-03-16 16:27] VITALS: BP 126/69
--- NOTE | 2020-03-16 16:27 | NUR ---
PT MEDICATED PER EMAR. WILL CONTINUE TO MONITOR. PT TO DISCHARGED SOON.
--- NOTE | 2020-03-16 16:56 | NUR ---
TASK RN: PT REPORTS IMPROVEMENT IN PAIN S/P RX AND KNEE IMMOBILIZER. DC EDUCATION PROVIDED, PT DEMONSTRATES UNDERSTANDING. PT AMBULATED STEADILY TO DC WITH RN USING WALKER. FRIEND TO TRANSPORT PT HOME.
== END 2020-03-16 16:59 | disposition home or self-care (01) ==
LOC: ED 14:35
DX: S39.012A Strain of muscle, fascia and tendon of lower back, initial encounter (principal); S83.91XA Sprain of unspecified site of right knee, initial encounter; S73.101A Unspecified sprain of right hip, initial encounter; R42 Dizziness and giddiness; I48.91 Unspecified atrial fibrillation; W19.XXXA Unspecified fall, initial encounter; Y93.01 Activity, walking, marching and hiking; Y92.098 Other place in other non-institutional residence as the place of occurrence of the external cause; Y99.8 Other external cause status
CPT/HCPCS: 29505; 72110; 73502; 73564; 93005; 96372; 99284; J1885

== ENCOUNTER 2020-03-21 16:38 | Emergency (ER) | payer MEDICARE, MEDICAID ==
[~2020-03-21] VITALS: Ht 160 cm; Wt 75.0 kg
[~2020-03-21 16:38] MED LIST changes: +FLEC100T PO; -PANT20TA3 PO; +PANT20TA4 PO
--- NOTE | 2020-03-21 16:54 | NUR ---
Patient BIB ambulance c/o dizziness, N/V, and CP since this morning. CP is substernal radiating to left breast area. Patient has a hx of afib. Per EMS, patient was in afib with a rate of 150 and upon arrival converted to NSR with a rate in the 80s. EMS admin Fentanyl 50mcg, Zofran 4mg, Benedryl 50mg. Benedryl was admin due to patient stating she gets itchy with Fentanyl. Patient is in NAD. Respirations even and unlabored. Patient denies N/V at this time but still c/o dizziness and CP.
[2020-03-21] MEDS ORDERED: SODIUM CHLORIDE 0.9% 1,000 ML IV ONE (17:18)
[2020-03-21] MEDS ORDERED: ONDANSETRON 2MG/ML, 2ML ONE (17:29)
[2020-03-21] MEDS ORDERED: ONDANSETRON 2MG/ML, 2ML IVPush ONE (17:30)
[2020-03-21] MEDS ORDERED: SODIUM CHLORIDE FLUSH 10ML SYR IVF ONE (17:30)
--- NOTE | 2020-03-21 17:38 | NUR ---
LAB IN ROOM.
[2020-03-21 17:53] LABS: BASOPHILS # (AUTO) 0.03 x10^3/uL (0-0.1); BASOPHILS % (AUTO) 0 % (0-1); EOSINOPHILS # (AUTO) 0.09 x10^3/uL (0-0.4); EOSINOPHILS % (AUTO) 1 % (1-7); LYMPHOCYTES # (AUTO) 1.42 x10^3/uL (1-3.4); LYMPHOCYTES % (AUTO) 22 % (22-44); MD NO; MEAN CORPUSCULAR HEMOGLOBIN 29.6 pg (27.0-34.8); MEAN CORPUSCULAR HGB CONC 33.1 g/dL (32.4-35.8); MEAN PLATELET VOLUME 8.5 fL (7.4-10.4); MONOCYTES # (AUTO) 0.44 x10^3/uL (0.2-0.8); MONOCYTES % (AUTO) 7 % (2-9); NEUTROPHILS # (AUTO) 4.57 x10^3/uL (1.8-6.8); NEUTROPHILS % (AUTO) 70 % (42-75); PLATELET COUNT 274 x10^3/uL (130-400); RED BLOOD COUNT 4.19 x10^6/uL (3.82-5.3); RED CELL DISTRIBUTION WIDTH 15.7 % (9.6-15.2)
[2020-03-21 17:59] LABS: ALBUMIN 3.3 g/dL (3.4-5.0); ANION GAP 8 mmol/L (5-15); CALCIUM 7.9 mg/dL (8.5-10.1); CHLORIDE 113 mmol/L (98-107)
[2020-03-21 18:04] VITALS: BP 113/65
[2020-03-21 18:05] LABS: ALANINE AMINOTRANSFERASE 23 U/L (12-78); ALKALINE PHOSPHATASE 64 U/L (45-117); BILIRUBIN,TOTAL 0.4 mg/dL (0.2-1.0); CREATININE 0.82 mg/dL (0.55-1.02); TOTAL PROTEIN 6.5 g/dL (6.4-8.2); TROPONIN I < 0.015 ng/mL (0.000-0.045)
[2020-03-21] MEDS ORDERED: OXYcodone/APAP 5/325MG TABLET ONE (18:08)
[2020-03-21] MEDS ORDERED: OXYcodone/APAP 5/325MG TABLET PO ONE (18:30)
[2020-04-09] MEDS ORDERED: ONDA4TAB7 PO (16:52)
[2020-04-09] MEDS ORDERED: METO50TA82 PO (16:52)
[2020-04-14] MEDS ORDERED: TRAM50TA2 PO (10:40)
== END 2020-03-21 18:58 | disposition home or self-care (01) ==
LOC: ED 18:19
DX: I48.20 Chronic atrial fibrillation, unspecified (principal); M54.5 Low back pain; G89.29 Other chronic pain; R00.2 Palpitations; R11.2 Nausea with vomiting, unspecified; I10 Essential (primary) hypertension; K21.9 Gastro-esophageal reflux disease without esophagitis; E78.5 Hyperlipidemia, unspecified; Z87.11 Personal history of peptic ulcer disease; Z90.49 Acquired absence of other specified parts of digestive tract
CPT/HCPCS: 36415; 71045; 80053; 83735; 84484; 85025; 93005; 96361; 96374; 99285; J2405; J7030

== ENCOUNTER 2020-03-30 13:03 | Emergency (ER) | payer MEDICARE, MEDICAID ==
[~2020-03-30] VITALS: Ht 160 cm; Wt 75.0 kg
[~2020-03-30 13:03] MED LIST changes: +PANT20TA3 PO; -PANT20TA4 PO
[2020-03-30] MEDS ORDERED: PROPOFOL 10 MG/ML, 20ML ONE (13:22)
[2020-03-30] MEDS ORDERED: HYDROmorphone 1 MG/ML, 1ML INJ ONE (13:25)
[2020-03-30] MEDS ORDERED: SODIUM CHLORIDE FLUSH 10ML SYR IVF ONE (13:30)
[2020-03-30] MEDS ORDERED: PROPOFOL 10 MG/ML, 20ML IVPush ONE (13:30)
[2020-03-30] MEDS ORDERED: HYDROmorphone 1 MG/ML, 1ML INJ IV ONE (13:30)
[2020-03-30 13:39] LABS: BASOPHILS # (AUTO) 0.06 x10^3/uL (0-0.1); BASOPHILS % (AUTO) 1 % (0-1); EOSINOPHILS # (AUTO) 0.11 x10^3/uL (0-0.4); EOSINOPHILS % (AUTO) 1 % (1-7); LYMPHOCYTES # (AUTO) 1.86 x10^3/uL (1-3.4); LYMPHOCYTES % (AUTO) 19 % (22-44); MD NO; MEAN CORPUSCULAR HEMOGLOBIN 29.4 pg (27.0-34.8); MEAN CORPUSCULAR HGB CONC 32.6 g/dL (32.4-35.8); MEAN CORPUSCULAR VOLUME 90.2 fL (80-100); MEAN PLATELET VOLUME 8.5 fL (7.4-10.4); MONOCYTES # (AUTO) 0.49 x10^3/uL (0.2-0.8); MONOCYTES % (AUTO) 5 % (2-9); NEUTROPHILS # (AUTO) 7.15 x10^3/uL (1.8-6.8); NEUTROPHILS % (AUTO) 74 % (42-75); PLATELET COUNT 392 x10^3/uL (130-400); RED CELL DISTRIBUTION WIDTH 15.2 % (9.6-15.2)
[2020-03-30] MEDS ORDERED: DILTIAZEM 5 MG/ML, 5ML ONE (13:45)
--- NOTE | 2020-03-30 13:56 | NUR ---
PT NOW IN NSR AFTER 10 MG OF CARDIZEM, MD LI NOTIFIED. GOT EKG. PT STILL HAVING CHEST PAIN SUBSTERNAL(SHARP) GOING TO HER RIGHT ARM STARTING AT 2AM.
[2020-03-30 13:57] LABS: ALBUMIN 4.2 g/dL (3.4-5.0); ANION GAP 9 mmol/L (5-15); CALCIUM 8.8 mg/dL (8.5-10.1); CHLORIDE 114 mmol/L (98-107)
[2020-03-30] MEDS ORDERED: DILTIAZEM 5 MG/ML, 5ML IVPush ONE (14:00)
[2020-03-30 14:04] LABS: ALANINE AMINOTRANSFERASE 25 U/L (12-78); ALKALINE PHOSPHATASE 77 U/L (45-117); BILIRUBIN,TOTAL 0.8 mg/dL (0.2-1.0); CREATININE 0.87 mg/dL (0.55-1.02); TOTAL PROTEIN 7.8 g/dL (6.4-8.2); TROPONIN I < 0.015 ng/mL (0.000-0.045)
--- NOTE | 2020-03-30 14:07 | NUR ---
BIBA FOR WORSENING C/O SOB AND CHEST PAIN SINCE 2AM TODAY, REPORTS SHE WENT INTO AFIB AT THAT TIME. GIVEN ASA 324MG AND ZOFRAN 4MG IV, AND 250ML NS. PT REPORTS SHE TOOK A NITRO AND NOW HAS TOMLINSON. PER EMS PT IS IN AFIB RVR HR 170. PT IN BED IN GOWN ON PADC, CONT MANAGER MACHINE, SPO2, BP Q 30 MIN, SIDE RAILS UP X2, CALL LIGHT IN REACH.
[2020-03-30 15:00] VITALS: BP 132/64
== END 2020-03-30 15:03 | disposition home or self-care (01) ==
LOC: ED 14:26
DX: I48.20 Chronic atrial fibrillation, unspecified (principal); R00.0 Tachycardia, unspecified; K21.9 Gastro-esophageal reflux disease without esophagitis; E78.5 Hyperlipidemia, unspecified; I10 Essential (primary) hypertension; Z87.11 Personal history of peptic ulcer disease
CPT/HCPCS: 36415; 71045; 80053; 83690; 83735; 84436; 84443; 84484; 85025; 93005; 96374; 96375; 99285; J1170

== ENCOUNTER 2020-04-01 13:30 | Emergency (ER) | payer MEDICARE, MEDICAID ==
[~2020-04-01] VITALS: Ht 160 cm; Wt 74.0 kg
--- NOTE | 2020-04-01 13:37 | NUR ---
PT BIB EMS FOR CHEST PAIN AND ABDOMINAL PAIN, STARTED AT 2 AM. CO OF N/V. RECENTLY IN ER FOR AFIB. NSR ON MONITOR. DENIES SOB. NO FEVERS. REHABILITATION SERVICES DIRECTOR APPLIED. EKG IN PROCESS 100 FENT IN ROUTE BY EMS. 18 LEFT AC IV
[2020-04-01] MEDS ORDERED: ONDANSETRON 2MG/ML, 2ML ONE (13:53)
[2020-04-01] MEDS ORDERED: MAALOX/HYOSCYAMINE/LIDOCAINE 45 ML BTL ONE (13:53)
[2020-04-01] MEDS ORDERED: LIDODERM 5% PATCH TD ONE ×2 (13:53→14:00)
[2020-04-01] MEDS ORDERED: SODIUM CHLORIDE FLUSH 10ML SYR IVF ONE (14:00)
[2020-04-01] MEDS ORDERED: ONDANSETRON 2MG/ML, 2ML IVPush ONE (14:00)
[2020-04-01] MEDS ORDERED: MAALOX/HYOSCYAMINE/LIDOCAINE 45 ML BTL PO ONE (14:00)
--- NOTE | 2020-04-01 14:01 | NUR ---
BREAK RN: PT RETCHING, WHITE/WATERY FLUID WITH SPECKS OF BLOOD. PT MEDICATED WITH ZOFRAN ORDERED. LIDOCAINE PATCH TO BE APPLIED TO LOWER BACK AND GI COCKTAIL TO BE GIVEN. PORTABLE CXR COMPLETED. STUDENT TRUCK DRIVER AT BEDSIDE AND U/S TECH AT BEDSIDE. PT AFIB PER MONITOR.
[2020-04-01 14:03] VITALS: BP 133/73
--- NOTE | 2020-04-01 14:23 | NUR ---
REPORT TO LINDSEY COOMBS
[2020-04-01 14:27] LABS: ALANINE AMINOTRANSFERASE 24 U/L (12-78); ALBUMIN 4.1 g/dL (3.4-5.0); ANION GAP 8 mmol/L (5-15); CALCIUM 8.8 mg/dL (8.5-10.1); CHLORIDE 112 mmol/L (98-107); CREATININE 0.77 mg/dL (0.55-1.02)
[2020-04-01 14:32] LABS: ALKALINE PHOSPHATASE 69 U/L (45-117); BASOPHILS # (AUTO) 0.02 x10^3/uL (0-0.1); BASOPHILS % (AUTO) 0 % (0-1); BILIRUBIN,TOTAL 0.6 mg/dL (0.2-1.0); EOSINOPHILS % (AUTO) 2 % (1-7); LYMPHOCYTES # (AUTO) 1.47 x10^3/uL (1-3.4); LYMPHOCYTES % (AUTO) 17 % (22-44); MD NO; MEAN CORPUSCULAR HEMOGLOBIN 29.3 pg (27.0-34.8); MEAN CORPUSCULAR VOLUME 88.9 fL (80-100); MEAN PLATELET VOLUME 8.6 fL (7.4-10.4); MONOCYTES # (AUTO) 0.46 x10^3/uL (0.2-0.8); MONOCYTES % (AUTO) 5 % (2-9); NEUTROPHILS # (AUTO) 6.72 x10^3/uL (1.8-6.8); NEUTROPHILS % (AUTO) 76 % (42-75); PLATELET COUNT 256 x10^3/uL (130-400); RED BLOOD COUNT 4.29 x10^6/uL (3.82-5.3); RED CELL DISTRIBUTION WIDTH 15.1 % (9.6-15.2); TOTAL PROTEIN 7.3 g/dL (6.4-8.2); TROPONIN I < 0.015 ng/mL (0.000-0.045)
[2020-04-01] MEDS ORDERED: HYDROcodone/APAP 5/325 TABLET PO STA (14:55)
[2020-04-01] MEDS ORDERED: HYDROcodone/APAP 5/325 TABLET ONE (14:56)
--- NOTE | 2020-04-01 15:09 | NUR ---
MEDICATED PER ORDERS FOR PAIN
--- NOTE | 2020-04-01 15:54 | NUR ---
Patient/Caregiver given discharge instructions and they have confirmed that they understand the instructions. Patient ambulatory with steady gait.
== END 2020-04-01 15:58 | disposition home or self-care (01) ==
LOC: ED 15:25
DX: K85.00 Idiopathic acute pancreatitis without necrosis or infection (principal); R10.13 Epigastric pain; R11.2 Nausea with vomiting, unspecified; R19.7 Diarrhea, unspecified; R07.89 Other chest pain; I48.91 Unspecified atrial fibrillation; K59.00 Constipation, unspecified; K21.9 Gastro-esophageal reflux disease without esophagitis; E78.5 Hyperlipidemia, unspecified; I10 Essential (primary) hypertension; Z90.89 Acquired absence of other organs; Z90.49 Acquired absence of other specified parts of digestive tract; Z98.51 Tubal ligation status
CPT/HCPCS: 36415; 71045; 76700; 80053; 83690; 84484; 85025; 93005; 96374; 99285; J2405

== ENCOUNTER 2020-05-10 17:14 | Emergency (ER) | payer MEDICARE, MEDICAID ==
[~2020-05-10] VITALS: Ht 160 cm; Wt 77.7 kg
[~2020-05-10 17:14] MED LIST changes: +METO50TA82 PO; +ONDA4TAB7 PO; -PANT20TA3 PO; +PANT20TA4 PO
[2020-05-10] MEDS ORDERED: HYDROmorphone 2 MG/ML, 1ML ONE (17:46)
[2020-05-10] MEDS ORDERED: HYDROmorphone 1 MG/ML, 1ML INJ IV ONE (18:00)
[2020-05-10] MEDS ORDERED: SODIUM CHLORIDE FLUSH 10ML SYR IVF ONE (18:00)
[2020-05-10 18:07] LABS: BASOPHILS # (AUTO) 0.02 x10^3/uL (0-0.1); BASOPHILS % (AUTO) 0 % (0-1); EOSINOPHILS # (AUTO) 0.14 x10^3/uL (0-0.4); EOSINOPHILS % (AUTO) 2 % (1-7); LYMPHOCYTES # (AUTO) 1.76 x10^3/uL (1-3.4); LYMPHOCYTES % (AUTO) 25 % (22-44); MD NO; MEAN CORPUSCULAR HEMOGLOBIN 29.8 pg (27.0-34.8); MEAN CORPUSCULAR HGB CONC 33.6 g/dL (32.4-35.8); MEAN CORPUSCULAR VOLUME 88.8 fL (80-100); MEAN PLATELET VOLUME 8.3 fL (7.4-10.4); MONOCYTES # (AUTO) 0.48 x10^3/uL (0.2-0.8); MONOCYTES % (AUTO) 7 % (2-9); NEUTROPHILS # (AUTO) 4.78 x10^3/uL (1.8-6.8); NEUTROPHILS % (AUTO) 67 % (42-75); PLATELET COUNT 222 x10^3/uL (130-400); RED BLOOD COUNT 4.13 x10^6/uL (3.82-5.3); RED CELL DISTRIBUTION WIDTH 14.7 % (9.6-15.2)
[2020-05-10 18:11] LABS: ALBUMIN 3.7 g/dL (3.4-5.0); ANION GAP 7 mmol/L (5-15); CALCIUM 8.7 mg/dL (8.5-10.1); CHLORIDE 113 mmol/L (98-107)
[2020-05-10 18:16] LABS: ALKALINE PHOSPHATASE 66 U/L (45-117); BILIRUBIN,TOTAL 0.6 mg/dL (0.2-1.0); CREATININE 0.82 mg/dL (0.55-1.02); TOTAL PROTEIN 6.9 g/dL (6.4-8.2); TROPONIN I < 0.015 ng/mL (0.000-0.045)
[2020-05-10 18:23] LABS: ALANINE AMINOTRANSFERASE 25 U/L (12-78)
--- NOTE | 2020-05-10 18:51 | NUR ---
PT RESTING IN [facility], INFORMED MD DOES NOT WANT HER TO HAVE ADDITIONAL NARCOTICS AT THIS TIME. PT BECAME AGITATED WITH RN STATING "WHY DO I GET A CT AND NOT AN MRI, HOW LONG DO I HAVE TO SIT HERE IN PAIN, THIS IS REDICULOUS, I'M IN SO MUCH PAIN", PT EDUCATED SHE WILL GET CT SHORTLY AND THEN REASSES PAIN. PT STATES "I'M CLAUSTROPHOBIC, YOU NEED TO LEAVE THAT DOOR OPEN", PT EDUCATED ROOM IS NEGATIVE PRESSURE AND DOOR WILL ALARM BUT SHE CAN MOVE TO ANOTHER ROOM WHEN AVAILABLE, PT AGREES TO HAVE CURTAIN OPEN AT THIS TIME.
--- NOTE | 2020-05-10 18:55 | NUR ---
REPORT RECIEVED FROM CORIN ARIAS. PT RESTING IN BED, SAFETY MEASURES IN PLACE, AND ON MONITORS
--- NOTE | 2020-05-10 19:35 | NUR ---
PT BACK FROM CT
[2020-05-10] MEDS ORDERED: OMNIPAQUE 350 MG/ML, 75ML BOTTLE ONE (19:51)
[2020-05-10 21:04] VITALS: BP 127/72
== END 2020-05-10 21:12 | disposition home or self-care (01) ==
LOC: ED 18:32
DX: R07.89 Other chest pain (principal); R11.2 Nausea with vomiting, unspecified; R10.9 Unspecified abdominal pain; I10 Essential (primary) hypertension; E78.5 Hyperlipidemia, unspecified; K21.9 Gastro-esophageal reflux disease without esophagitis; I48.91 Unspecified atrial fibrillation; Z90.89 Acquired absence of other organs; Z95.0 Presence of cardiac pacemaker
CPT/HCPCS: 36415; 71045; 71260; 80053; 84484; 85025; 85379; 96374; 99285; J1170; Q9967

== ENCOUNTER 2020-05-16 12:58 | Emergency (ER) | payer MEDICARE, MEDICAID ==
[~2020-05-16] VITALS: Ht 160 cm; Wt 78.0 kg
[2020-05-16] MEDS ORDERED: ONDANSETRON ODT 4 MG PO ONE (13:30)
[2020-05-16] MEDS ORDERED: HYDROmorphone 2 MG/ML, 1ML IM ONE (13:30)
[2020-05-16] MEDS ORDERED: ONDANSETRON ODT 4 MG ONE (13:36)
[2020-05-16] MEDS ORDERED: HYDROmorphone 1 MG/ML, 1ML INJ ONE (13:36)
[2020-05-16] MEDS ORDERED: ONDANSETRON 4 MG TABLET PO ONE (14:00)
--- NOTE | 2020-05-16 15:28 | NUR ---
PT IN ROOM REQUESTING BENADRYL FOR ITCHY SKIN POST MEDICATING. MD MADE AWARE. NO NEW ORDERS.
[2020-05-16 15:38] VITALS: BP 195/84
== END 2020-05-16 16:31 | disposition home or self-care (01) ==
LOC: ED 13:13
DX: S13.9XXA Sprain of joints and ligaments of unspecified parts of neck, initial encounter (principal); S39.012A Strain of muscle, fascia and tendon of lower back, initial encounter; S00.93XA Contusion of unspecified part of head, initial encounter; I10 Essential (primary) hypertension; K21.9 Gastro-esophageal reflux disease without esophagitis; I48.91 Unspecified atrial fibrillation; G89.29 Other chronic pain; X58.XXXA Exposure to other specified factors, initial encounter; Y93.89 Activity, other specified; Y92.89 Other specified places as the place of occurrence of the external cause; Y99.8 Other external cause status
CPT/HCPCS: 70450; 72110; 72125; 96372; 99285; J1170; Q0162

== ENCOUNTER 2020-05-20 19:29 | Inpatient (IN) | payer MEDICARE, MEDICAID ==
[~2020-05-20] VITALS: Ht 157.5 cm; Wt 82.0 kg
--- NOTE | 2020-05-20 19:34 | NUR ---
59 YEAR OLD FEMALE BIB [facility] FOR MULTIPLE COMPLAINTS. SHE STATES SHE HAS LOWER BACK PAIN THAT RADIATES UP HER SPINE. SHE HAS PSHX OF BACK SURGERY. SHE STATES THE PAIN IS ALSO RADIATING TO HER HIPS AND CAUSES NUMBNESS AND TINGLING TO HER lEFT LEG.SHE ALSO C/O ABDOMINAL PAIN W NAUSEA AND VOMITING. SHE STATES SHE WAS SUPPOSED TO HAVE A COLECTOMY BUT THE SURGEON WAS UNABLE TO COMPLETE THE SURGERY PAST LAPROSCOPIC INCISION. SHE STATES SHE HAS BEEN CONSTIPATED BUT NEEDS TO MANUALLY DISEMPACT HERSELF. SHE STATES HER ABDOMINAL PAIN IS LOCATED NEED THE INCISION POINTS. SHE ALSO STATES SHE HAS A HEARTBURN FEELING BUT STATES EUSEBIO THINKS IT'S DUE TO HER PACEMAKER. SHE IS CURRENTLY NSR.
[2020-05-20] MEDS ORDERED: SODIUM CHLORIDE FLUSH 10ML SYR IVF ONE (20:30)
[2020-05-20] MEDS ORDERED: KETOROLAC 30 MG/1 ML IVPush ONE (20:30)
[2020-05-20] MEDS ORDERED: ONDANSETRON 2MG/ML, 2ML IVPush ONE (20:30)
[2020-05-20] MEDS ORDERED: HYDROmorphone 1 MG/ML, 1ML INJ IM ONE (20:39)
[2020-05-20 20:40] LABS: MEAN CORPUSCULAR HEMOGLOBIN 29.3 pg (27.0-34.8); MEAN CORPUSCULAR HGB CONC 32.5 g/dL (32.4-35.8); MEAN PLATELET VOLUME 8.4 fL (7.4-10.4); PLATELET COUNT 256 x10^3/uL (130-400); RED BLOOD COUNT 4.22 x10^6/uL (3.82-5.3); RED CELL DISTRIBUTION WIDTH 15.1 % (9.6-15.2)
[2020-05-20 20:45] LABS: ALANINE AMINOTRANSFERASE 20 U/L (12-78); ANION GAP 5 mmol/L (5-15); CHLORIDE 112 mmol/L (98-107)
[2020-05-20 20:48] LABS: ALKALINE PHOSPHATASE 64 U/L (45-117); BILIRUBIN,TOTAL 0.4 mg/dL (0.2-1.0); CREATININE 0.78 mg/dL (0.55-1.02); TOTAL PROTEIN 7.3 g/dL (6.4-8.2)
[2020-05-20] MEDS ORDERED: KETOROLAC 30 MG/1 ML ONE (20:48)
[2020-05-20] MEDS ORDERED: ONDANSETRON 2MG/ML, 2ML ONE (20:49)
[2020-05-20] MEDS ORDERED: HYDROmorphone 1 MG/ML, 1ML INJ ONE (20:49)
[2020-05-20] MEDS ORDERED: DIPHENHYDRAMINE 25 MG CAPSULE ONE (20:49)
[2020-05-20] MEDS ORDERED: DIPHENHYDRAMINE 25 MG CAPSULE PO ONE (21:00)
[2020-05-20 21:08] LABS: MICROSCOPIC NOT IND
[2020-05-20 21:24] LABS: MD YES
[2020-05-20 21:28] LABS: ANISOCYTOSIS 1+; BAND#(MANUAL) 0.07 x10^3/uL; BANDS%(MANUAL) 1 % (0-7); BASOS#(MANUAL) 0.07 x10^3/uL (0-0.1); BASOS% (MANUAL) 1 % (0-1); EOS#(MANUAL) 0.21 x10^3/uL (0.0-0.4); EOS% (MANUAL) 3 % (1-7); LYMPHS% (MANUAL) 31 % (22-44); MONOS% (MANUAL) 7 % (2-9); SEG#(MANUAL) 4.05 x10^3/uL (1.8-6.8); SEGS% (MANUAL) 57 % (42-75)
[2020-05-20 21:29] LABS: <PLATELET ESTIMATE> ADEQUATE; <PLT MORPHOLOGY> NORMAL PLT MORPH; POLYCHROMASIA 1+
--- NOTE | 2020-05-20 22:33 | NUR ---
Report given to Juana COOMBS
[2020-05-20 23:26] VITALS: BP 150/82
[2020-05-20] MEDS ORDERED: PROMETHAZINE 25 MG/ML, 1ML IM PRN (23:30)
[2020-05-20] MEDS ORDERED: POLYETHYLENE GLYCOL 17 GM PACKET PO PRN (23:30)
[2020-05-20] MEDS ORDERED: ONDANSETRON ODT 4 MG PO PRN (23:30)
[2020-05-20] MEDS ORDERED: hydrALAzine 20 MG/ML, 1ML IVPush PRN (23:30)
[2020-05-20] MEDS ORDERED: ACETAMINOPHEN 325 MG TABLET PO PRN (23:30)
[2020-05-20] MEDS ORDERED: DOCUSATE 100 MG CAPSULE PO PRN (23:30)
[2020-05-21] MEDS: OXYcodone IR 5MG TABLET PO PRN ×2 (00:09→22:21)
[2020-05-21] MEDS: APIXABAN 5 MG TABLET PO SCH ×3 (00:09→20:37)
[2020-05-21 00:10] LABS: FREE T4 (FREE THYROXINE) 0.98 ng/dL (0.76-1.46)
[2020-05-21] MEDS: LACTATED RINGERS 1,000 ML IV SCH ×3 (00:10→13:00)
[2020-05-21] MEDS: FLECAINIDE 100MG TABLET PO SCH ×3 (00:36→20:37)
[2020-05-21 00:59] VITALS: BP 147/82
[2020-05-21] MEDS: HYDROmorphone 1 MG/ML, 1ML INJ IV PRN ×4 (02:33→20:37)
[2020-05-21 05:45] LABS: BASOPHILS % (AUTO) 0 % (0-1); EOSINOPHILS % (AUTO) 0 % (1-7); LYMPHOCYTES # (AUTO) 0.51 x10^3/uL (1-3.4); LYMPHOCYTES % (AUTO) 9 % (22-44); MD NO; MEAN CORPUSCULAR HGB CONC 32.3 g/dL (32.4-35.8); MEAN PLATELET VOLUME 8.8 fL (7.4-10.4); MONOCYTES # (AUTO) 0.03 x10^3/uL (0.2-0.8); MONOCYTES % (AUTO) 1 % (2-9); NEUTROPHILS # (AUTO) 5.37 x10^3/uL (1.8-6.8); NEUTROPHILS % (AUTO) 91 % (42-75); PLATELET COUNT 229 x10^3/uL (130-400); RED BLOOD COUNT 3.98 x10^6/uL (3.82-5.3); RED CELL DISTRIBUTION WIDTH 14.7 % (9.6-15.2)
[2020-05-21 05:53] LABS: ALBUMIN 3.6 g/dL (3.4-5.0); ANION GAP 7 mmol/L (5-15); CALCIUM 8.8 mg/dL (8.5-10.1); CHLORIDE 112 mmol/L (98-107)
[2020-05-21 05:59] LABS: ALANINE AMINOTRANSFERASE 19 U/L (12-78); ALKALINE PHOSPHATASE 53 U/L (45-117); BILIRUBIN,TOTAL 0.5 mg/dL (0.2-1.0); CHOL/HDL RATIO 2.4; CHOLESTEROL, TOTAL 156 mg/dL (140-239); CREATININE 0.73 mg/dL (0.55-1.02); HDL CHOL % 41 % (28-40); HDL CHOLESTEROL (DIRECT) 64 mg/dL (40-60); LDL CHOLESTEROL,CALCULATED 86 mg/dL (54-169); LDL/HDL RATIO 1.3 (0.5-3.0); TOTAL PROTEIN 6.8 g/dL (6.4-8.2); TRIGLYCERIDES 28 mg/dL (50-200); VLDL CHOLESTEROL 6 mg/dL (0-25)
[2020-05-21 07:21] VITALS: BP 113/57
[2020-05-21] MEDS ORDERED: NITROGLYCERIN SINGLE TAB 0.4 MG SL ONE (07:56)
[2020-05-21] MEDS: DIPHENHYDRAMINE 25 MG CAPSULE PO PRN ×2 (10:20→20:37)
[2020-05-21 13:52] VITALS: BP 108/65
[2020-05-21] MEDS ORDERED: morphine SULFATE 10 MG/ML, 1ML ONE (14:49)
[2020-05-21 15:22] LABS: TROPONIN I < 0.015 ng/mL (0.000-0.045)
[2020-05-21] MEDS ORDERED: LORazepam 2 MG/ML, 1ML IVPush ONE (15:30)
[2020-05-21 15:59] VITALS: BP 111/72
[2020-05-21] MEDS ORDERED: OMNIPAQUE 350 MG/ML, 75ML BOTTLE ONE (17:53)
[2020-05-21 19:01] VITALS: BP 133/84
[2020-05-21 19:48] VITALS: BP 125/67
[2020-05-21] MEDS ORDERED: NITROGLYCERIN 0.4 MG BOTTLE (25 TABS) SL PRN (20:00)
[2020-05-21] MEDS ORDERED: NITROGLYCERIN 0.4 MG/SPRAY SL PRN (20:00)
[2020-05-21] MEDS: ONDANSETRON 2MG/ML, 2ML IVPush PRN (20:00)
[2020-05-21 21:41] LABS: TROPONIN I 0.023 ng/mL (0.000-0.045)
[2020-05-22 00:03] VITALS: BP 112/79
[2020-05-22] MEDS: LACTATED RINGERS 1,000 ML IV SCH ×2 (01:08→09:04)
[2020-05-22] MEDS: HYDROmorphone 1 MG/ML, 1ML INJ IV PRN ×3 (01:08→18:53)
[2020-05-22] MEDS: DIPHENHYDRAMINE 50 MG CAPSULE PO PRN ×3 (02:16→18:54)
[2020-05-22 02:36] LABS: BASOPHILS # (AUTO) 0.04 x10^3/uL (0-0.1); BASOPHILS % (AUTO) 1 % (0-1); EOSINOPHILS # (AUTO) 0.08 x10^3/uL (0-0.4); EOSINOPHILS % (AUTO) 1 % (1-7); LYMPHOCYTES # (AUTO) 2.43 x10^3/uL (1-3.4); LYMPHOCYTES % (AUTO) 30 % (22-44); MD NO; MEAN CORPUSCULAR HGB CONC 32.3 g/dL (32.4-35.8); MONOCYTES # (AUTO) 0.55 x10^3/uL (0.2-0.8); MONOCYTES % (AUTO) 7 % (2-9); NEUTROPHILS # (AUTO) 4.93 x10^3/uL (1.8-6.8); NEUTROPHILS % (AUTO) 61 % (42-75); PLATELET COUNT 257 x10^3/uL (130-400); RED CELL DISTRIBUTION WIDTH 15.1 % (9.6-15.2)
[2020-05-22 02:44] LABS: ALANINE AMINOTRANSFERASE 18 U/L (12-78); ALBUMIN 3.5 g/dL (3.4-5.0); ANION GAP 5 mmol/L (5-15); CALCIUM 8.2 mg/dL (8.5-10.1); CHLORIDE 114 mmol/L (98-107)
[2020-05-22 02:47] LABS: ALKALINE PHOSPHATASE 51 U/L (45-117); BILIRUBIN,TOTAL 0.5 mg/dL (0.2-1.0); CREATININE 0.77 mg/dL (0.55-1.02); TOTAL PROTEIN 6.5 g/dL (6.4-8.2)
[2020-05-22 02:52] LABS: TROPONIN I 0.027 ng/mL (0.000-0.045)
[2020-05-22] MEDS: OXYcodone IR 5MG TABLET PO PRN ×3 (03:02→21:07)
[2020-05-22 08:39] VITALS: BP 119/70
[2020-05-22] MEDS: APIXABAN 5 MG TABLET PO SCH ×2 (09:03→21:07)
[2020-05-22] MEDS: FLECAINIDE 100MG TABLET PO SCH ×2 (09:03→21:07)
[2020-05-22] MEDS ORDERED: HYDROmorphone 2 MG/ML, 1ML ONE (09:06)
[2020-05-22] MEDS ORDERED: DIPHENHYDRAMINE 25 MG CAPSULE ONE (09:08)
[2020-05-22 13:31] VITALS: BP 121/73
[2020-05-22 20:57] VITALS: BP 126/71
[2020-05-23] MEDS: HYDROmorphone 1 MG/ML, 1ML INJ IV PRN ×2 (00:03→04:21)
[2020-05-23 02:41] VITALS: BP 111/69
[2020-05-23] MEDS: DIPHENHYDRAMINE 50 MG CAPSULE PO PRN (04:36)
[2020-05-23 07:56] VITALS: BP 113/72
[2020-05-23] MEDS: FLECAINIDE 100MG TABLET PO SCH ×2 (10:15→19:52)
[2020-05-23] MEDS: APIXABAN 5 MG TABLET PO SCH (10:15)
[2020-05-23] MEDS ORDERED: ROCURONIUM 10MG/ML,5ML ONE (11:00)
[2020-05-23] MEDS ORDERED: DEXAMETHASONE 4 MG/ML, 1ML ONE (11:00)
[2020-05-23] MEDS ORDERED: ONDANSETRON 2MG/ML, 2ML ONE (11:00)
[2020-05-23] MEDS ORDERED: SUCCINYLCHOLINE 20 MG/ML, 10ML ONE (11:00)
[2020-05-23] MEDS ORDERED: SUGAMMADEX 200 MG/2 ML IVPush ONE (11:00)
[2020-05-23] MEDS ORDERED: PROPOFOL 10 MG/ML, 20ML ONE (11:00)
[2020-05-23] MEDS: OXYcodone IR 5MG TABLET PO PRN (11:22)
[2020-05-23 12:50] VITALS: BP 127/85
[2020-05-23] MEDS ORDERED: PANTOPRAZOLE 80 MG in SODIUM CHLORIDE 0.9% 50 ML IV ONE (13:30)
[2020-05-23] MEDS ORDERED: OMNIPAQUE 350 MG/ML, 100ML BOTTLE ONE (14:39)
[2020-05-23] MEDS: LACTATED RINGERS 1,000 ML IV SCH ×2 (14:52→21:30)
[2020-05-23] MEDS ORDERED: HYDROmorphone 2 MG/ML, 1ML ONE (15:20)
[2020-05-23] MEDS: PANTOPRAZOLE 80 MG in SODIUM CHLORIDE 0.9% 100 ML IV SCH (15:25)
[2020-05-23] MEDS ORDERED: FENTANYL PF 100 MCG/2ML ONE ×2 (16:05→16:51)
[2020-05-23] MEDS ORDERED: MIDAZOLAM 1 MG/ML, 2ML ONE (16:05)
[2020-05-23] MEDS ORDERED: HUM PROTHROMBIN CPLX IV ONE (16:30)
[2020-05-23] MEDS ORDERED: [UNRECOGNIZED DRUG - OTHER] IV ONE (16:30)
[2020-05-23] MEDS: FENTANYL PF 100 MCG/2ML IV PRN ×4 (16:45→17:05)
[2020-05-23] MEDS ORDERED: DIAZEPAM 5 MG/ML, 2ML IVPush PRN (17:00)
[2020-05-23] MEDS ORDERED: MEPERIDINE/PF 25MG/0.5ML IVPush PRN (17:00)
[2020-05-23] MEDS ORDERED: LABETALOL 5MG/ML, 20ML IV PRN (17:00)
[2020-05-23] MEDS ORDERED: hydrALAzine 20 MG/ML, 1ML IV PRN (17:00)
[2020-05-23] MEDS ORDERED: ONDANSETRON 2MG/ML, 2ML IVPush PRN (17:00)
[2020-05-23] MEDS ORDERED: MIDAZOLAM 1 MG/ML, 2ML IV PRN (17:00)
[2020-05-23] MEDS ORDERED: PROMETHAZINE 25 MG/ML, 1ML IVPush PRN (17:00)
[2020-05-23] MEDS ORDERED: DIPHENHYDRAMINE 50 MG/ML, 1ML IVPush PRN (17:00)
[2020-05-23] MEDS ORDERED: HYDROmorphone 1 MG/ML, 1ML INJ IVPush PRN (17:00)
[2020-05-23] MEDS ORDERED: PROMETHAZINE 12.5 MG SUPP PR PRN (17:00)
[2020-05-23] MEDS ORDERED: OXYcodone 5 MG/5 ML ORAL.SOL UDC PO PRN (17:00)
[2020-05-23] MEDS ORDERED: EPHEDRINE 50 MG/ML, 1ML IVPush PRN (17:00)
[2020-05-23] MEDS ORDERED: ALBUTEROL SULFATE 2.5 MG/3 ML NPPB PRN (17:00)
[2020-05-23 17:45] VITALS: BP 113/77
[2020-05-23 18:38] VITALS: BP 106/70
[2020-05-24 00:27] VITALS: BP 113/76
[2020-05-24] MEDS ORDERED: HYDROmorphone 2 MG/ML, 1ML ONE ×2 (00:31→04:42)
[2020-05-24] MEDS: HYDROmorphone 1 MG/ML, 1ML INJ IV PRN ×2 (00:34→04:47)
[2020-05-24] MEDS: ONDANSETRON 2MG/ML, 2ML IVPush PRN (00:34)
[2020-05-24] MEDS: LACTATED RINGERS 1,000 ML IV SCH ×5 (01:30→22:29)
[2020-05-24] MEDS: PANTOPRAZOLE 80 MG in SODIUM CHLORIDE 0.9% 100 ML IV SCH ×2 (04:12→13:51)
[2020-05-24 05:06] LABS: BASOPHILS % (AUTO) 0 % (0-1); EOSINOPHILS # (AUTO) 0.04 x10^3/uL (0-0.4); EOSINOPHILS % (AUTO) 1 % (1-7); LYMPHOCYTES # (AUTO) 0.67 x10^3/uL (1-3.4); LYMPHOCYTES % (AUTO) 12 % (22-44); MD NO; MEAN CORPUSCULAR HEMOGLOBIN 29.5 pg (27.0-34.8); MEAN CORPUSCULAR HGB CONC 32.8 g/dL (32.4-35.8); MEAN PLATELET VOLUME 8.8 fL (7.4-10.4); MONOCYTES # (AUTO) 0.13 x10^3/uL (0.2-0.8); MONOCYTES % (AUTO) 2 % (2-9); NEUTROPHILS # (AUTO) 4.98 x10^3/uL (1.8-6.8); NEUTROPHILS % (AUTO) 86 % (42-75); PLATELET COUNT 211 x10^3/uL (130-400); RED BLOOD COUNT 3.01 x10^6/uL (3.82-5.3); RED CELL DISTRIBUTION WIDTH 14.9 % (9.6-15.2)
[2020-05-24 05:15] LABS: ALANINE AMINOTRANSFERASE 17 U/L (12-78); ALBUMIN 2.8 g/dL (3.4-5.0); ANION GAP 5 mmol/L (5-15); CALCIUM 8.2 mg/dL (8.5-10.1); CHLORIDE 115 mmol/L (98-107)
[2020-05-24 05:17] LABS: ALKALINE PHOSPHATASE 42 U/L (45-117); BILIRUBIN,TOTAL 0.6 mg/dL (0.2-1.0); CREATININE 0.51 mg/dL (0.55-1.02); TOTAL PROTEIN 5.5 g/dL (6.4-8.2)
[2020-05-24 07:36] VITALS: BP 115/69
[2020-05-24] MEDS: OXYcodone IR 5MG TABLET PO PRN ×3 (09:48→19:56)
[2020-05-24] MEDS: FLECAINIDE 100MG TABLET PO SCH ×2 (09:49→19:57)
[2020-05-24 12:42] VITALS: BP 107/62
[2020-05-24 18:53] VITALS: BP 117/68
[2020-05-24] MEDS: PANTOPRAZOLE 40 MG IV IVPush SCH (19:56)
[2020-05-25] MEDS: OXYcodone IR 5MG TABLET PO PRN ×3 (00:41→13:28)
[2020-05-25] MEDS: LACTATED RINGERS 1,000 ML IV SCH ×3 (01:30→09:18)
[2020-05-25 01:43] VITALS: BP 105/63
[2020-05-25 05:51] LABS: BASOPHILS # (AUTO) 0.02 x10^3/uL (0-0.1); BASOPHILS % (AUTO) 0 % (0-1); EOSINOPHILS # (AUTO) 0.05 x10^3/uL (0-0.4); EOSINOPHILS % (AUTO) 1 % (1-7); LYMPHOCYTES # (AUTO) 1.72 x10^3/uL (1-3.4); LYMPHOCYTES % (AUTO) 28 % (22-44); MD NO; MEAN CORPUSCULAR HGB CONC 33.4 g/dL (32.4-35.8); MONOCYTES # (AUTO) 0.21 x10^3/uL (0.2-0.8); MONOCYTES % (AUTO) 4 % (2-9); NEUTROPHILS # (AUTO) 4.05 x10^3/uL (1.8-6.8); NEUTROPHILS % (AUTO) 67 % (42-75); PLATELET COUNT 175 x10^3/uL (130-400); RED BLOOD COUNT 2.57 x10^6/uL (3.82-5.3); RED CELL DISTRIBUTION WIDTH 14.9 % (9.6-15.2)
[2020-05-25 07:23] VITALS: BP 100/62
[2020-05-25] MEDS: PANTOPRAZOLE 40 MG IV IVPush SCH (09:19)
[2020-05-25] MEDS: FLECAINIDE 100MG TABLET PO SCH (09:20)
[2020-05-25 13:36] VITALS: BP 108/65
[2020-05-25 16:14] LABS: BASOPHILS # (AUTO) 0.02 x10^3/uL (0-0.1); BASOPHILS % (AUTO) 0 % (0-1); EOSINOPHILS % (AUTO) 2 % (1-7); LYMPHOCYTES # (AUTO) 1.72 x10^3/uL (1-3.4); LYMPHOCYTES % (AUTO) 32 % (22-44); MD NO; MEAN CORPUSCULAR HEMOGLOBIN 29.5 pg (27.0-34.8); MEAN CORPUSCULAR HGB CONC 32.3 g/dL (32.4-35.8); MEAN PLATELET VOLUME 8.6 fL (7.4-10.4); MONOCYTES # (AUTO) 0.22 x10^3/uL (0.2-0.8); MONOCYTES % (AUTO) 4 % (2-9); NEUTROPHILS # (AUTO) 3.39 x10^3/uL (1.8-6.8); NEUTROPHILS % (AUTO) 62 % (42-75); PLATELET COUNT 182 x10^3/uL (130-400); RED BLOOD COUNT 2.57 x10^6/uL (3.82-5.3); RED CELL DISTRIBUTION WIDTH 15.2 % (9.6-15.2)
[2020-05-25] MEDS ORDERED: PANTOPRAZOLE 40MG TABLET PO SCH (16:40)
[2020-05-25] MEDS ORDERED: PANT40TA6 PO (17:15)
== END 2020-05-25 18:48 | disposition home or self-care (01) | DRG 438 ==
LOC: ED 20:46 → EDIP 22:20 → 3N 23:23 → 5SO 05-21 17:17
PROVIDERS: ADMIT Internal Medicine; ATTEND Internal Medicine
PROC: 0W3P8ZZ Control Bleeding in Gastrointestinal Tract, Via Natural or Artificial Opening Endoscopic (ICD-10-PCS; principal; 2020-05-23 15:45)
DX: K85.90 Acute pancreatitis without necrosis or infection, unspecified (principal); K31.82 Dieulafoy lesion (hemorrhagic) of stomach and duodenum; G89.29 Other chronic pain; H66.90 Otitis media, unspecified, unspecified ear; I10 Essential (primary) hypertension; I48.0 Paroxysmal atrial fibrillation; K59.00 Constipation, unspecified; K76.0 Fatty (change of) liver, not elsewhere classified; M51.16 Intervertebral disc disorders with radiculopathy, lumbar region; Z79.01 Long term (current) use of anticoagulants; Z80.3 Family history of malignant neoplasm of breast; Z83.3 Family history of diabetes mellitus; Z87.11 Personal history of peptic ulcer disease; Z87.891 Personal history of nicotine dependence; Z90.49 Acquired absence of other specified parts of digestive tract; Z95.0 Presence of cardiac pacemaker; Z98.51 Tubal ligation status; Z88.0 Allergy status to penicillin; Z88.6 Allergy status to analgesic agent; Z88.8 Allergy status to other drugs, medicaments and biological substances; I49.5 Sick sinus syndrome
CPT/HCPCS: 36415; 71275; 74177; 76700; 80053; 80061; 81003; 82962; 83036; 83690; 83735; 84439; 84443; 84484; 85014; 85018; 85025; 86850; 86900; 93005; 96372; 96374; 96375; 99285; G0378; J1100; J1170; J1885; J2250; J2405; J2550; J2704; J3010; Q9967; C1932; C9113; J0330; J2060; J7120; J7512; Q0163; Q0177

== ENCOUNTER 2020-06-02 16:52 | Emergency (ER) | payer MEDICARE, MEDICAID ==
[~2020-06-02] VITALS: Ht 160 cm; Wt 79.7 kg
[~2020-06-02 16:52] MED LIST changes: +PANT40TA6 PO
--- NOTE | 2020-06-02 17:12 | NUR ---
PT WITH C/O SOB. WAS TOLD BY HER TRANSIT VEHICLE INSPECTOR THAT SHE WAS IN AFIB FOR 6 HOURS TODAY. PT WITH HX PPM PLACED 2 MONTHS AGO, ON XARELTO, THEN XARELTO DC'D D/T GI BLEED 2 WEEKS AGO. PT ALSO WITH C/O DIZZINESS, BACK PAIN PT TO CARD MONITOR, BP, CONT PULSE OX. AWAITING MICHAEL HARRIS
[2020-06-02] MEDS ORDERED: SODIUM CHLORIDE 0.9% 1,000ML IVBOLUS ONE (17:30)
[2020-06-02] MEDS ORDERED: SODIUM CHLORIDE FLUSH 10ML SYR IVF ONE (17:30)
[2020-06-02] MEDS ORDERED: SODIUM CHLORIDE 0.9% 1,000 ML IV ONE (17:30)
[2020-06-02] MEDS ORDERED: ONDANSETRON 2MG/ML, 2ML IVPush ONE (17:30)
[2020-06-02] MEDS ORDERED: ONDANSETRON 2MG/ML, 2ML ONE (17:47)
--- NOTE | 2020-06-02 17:59 | NUR ---
PT AMBULATED TO BR WITH STEADY GAIT, UA COLLECTED AND SENT TO LAB. PT MEDICATED PER OCT.
[2020-06-02 18:02] LABS: BASOPHILS % (AUTO) 1 % (0-1); EOSINOPHILS % (AUTO) 1 % (1-7); LYMPHOCYTES % (AUTO) 22 % (22-44); MEAN CORPUSCULAR HEMOGLOBIN 28.7 pg (27.0-34.8); MEAN CORPUSCULAR HGB CONC 32.7 g/dL (32.4-35.8); MEAN PLATELET VOLUME 8.1 fL (7.4-10.4); MONOCYTES % (AUTO) 7 % (2-9); NEUTROPHILS % (AUTO) 69 % (42-75); PLATELET COUNT 287 x10^3/uL (130-400); RED CELL DISTRIBUTION WIDTH 15.9 % (9.6-15.2)
[2020-06-02 18:03] LABS: ALANINE AMINOTRANSFERASE 20 U/L (12-78); ALBUMIN 3.6 g/dL (3.4-5.0); ANION GAP 8 mmol/L (5-15); CHLORIDE 111 mmol/L (98-107)
[2020-06-02 18:05] LABS: ALKALINE PHOSPHATASE 66 U/L (45-117); BILIRUBIN,TOTAL 0.5 mg/dL (0.2-1.0); TOTAL PROTEIN 6.8 g/dL (6.4-8.2)
[2020-06-02 18:09] LABS: MD NO
[2020-06-02 18:29] LABS: MICROSCOPIC NOT IND
--- NOTE | 2020-06-02 18:52 | NUR ---
REPORT TO NOC RN
[2020-06-02] MEDS ORDERED: [UNRECOGNIZED DRUG - OTHER] PO (19:18)
[2020-06-02] MEDS ORDERED: HYDR25TA6 PO (19:18)
[2020-06-02] MEDS ORDERED: LORazepam 2 MG/ML, 1ML IVPush ONE (19:30)
[2020-06-02] MEDS ORDERED: LORazepam 2 MG/ML, 1ML ONE (19:55)
[2020-06-02] MEDS ORDERED: HYDROmorphone 2 MG/ML, 1ML ONE (20:13)
[2020-06-02] MEDS ORDERED: HYDROmorphone 2 MG/ML, 1ML IVPush PRN (20:30)
[2020-06-02 21:02] VITALS: BP 123/67
--- NOTE | 2020-06-02 21:15 | NUR ---
Note terri in EDM - 06/02/20 at 2121 by REJI LATE ENTRY SUMMARY NOTE: FIRST INTERACTION WITH PT. PT SITTING INTO BLANKETS STATING "I CAN'T STOP THROWING UP." PT GIVEN VOMIT BAG, PT NEVER USED PROVIDED BAG, NO OTHER INCIDENTS RELATED TO N/V. PT COMPLAINING OF PAIN. STATES "LAST TIME THEY GAVE ME DILAUDID." PT'S VITALS STABLE AT THIS TIME. PT MEDICATED TO MAR.
--- NOTE | 2020-06-02 21:22 | NUR ---
LATE ENTRY SUMMARY NOTE: FIRST INTERACTION WITH PT. PT SITTING INTO BLANKETS STATING "I CAN'T STOP THROWING UP." PT GIVEN VOMIT BAG, PT NEVER USED PROVIDED BAG, NO OTHER INCIDENTS RELATED TO N/V. PT COMPLAINING OF PAIN. STATES "LAST TIME THEY GAVE ME DILAUDID." PT'S VITALS STABLE AT THIS TIME. PT MEDICATED TO MAR. PREVIOUSLY CHARTED UNDER WRONG USER.
== END 2020-06-02 21:16 | disposition home or self-care (01) ==
LOC: ED 21:10
DX: R06.00 Dyspnea, unspecified (principal); F41.1 Generalized anxiety disorder; M54.5 Low back pain; G89.29 Other chronic pain; R53.1 Weakness; I48.91 Unspecified atrial fibrillation; I10 Essential (primary) hypertension; E78.5 Hyperlipidemia, unspecified; K21.9 Gastro-esophageal reflux disease without esophagitis; Z87.11 Personal history of peptic ulcer disease; Z90.89 Acquired absence of other organs; Z95.0 Presence of cardiac pacemaker
CPT/HCPCS: 36415; 80053; 81003; 83605; 83690; 85025; 93005; 96361; 96374; 96375; 99284; J1170; J2060; J2405; J7030

== ENCOUNTER 2020-07-10 15:25 | Emergency (ER) | payer MEDICARE, MEDICAID ==
[~2020-07-10] VITALS: Ht 160 cm; Wt 85.0 kg
[~2020-07-10 15:25] MED LIST changes: +HYDR25TA6 PO; +[UNRECOGNIZED DRUG - OTHER] PO
[2020-07-10] MEDS ORDERED: SODIUM CHLORIDE 0.9% 1,000ML IVBOLUS ONE (16:00)
[2020-07-10] MEDS ORDERED: ONDANSETRON 2MG/ML, 2ML IVPush ONE (16:00)
[2020-07-10] MEDS ORDERED: FAMOTIDINE 20 MG/2 ML IVPush ONE (16:00)
[2020-07-10] MEDS ORDERED: SODIUM CHLORIDE FLUSH 10ML SYR IVF ONE (16:00)
[2020-07-10 16:08] LABS: BASOPHILS % (AUTO) 1 % (0-1); EOSINOPHILS % (AUTO) 2 % (1-7); LYMPHOCYTES % (AUTO) 32 % (22-44); MEAN CORPUSCULAR HEMOGLOBIN 25.1 pg (27.0-34.8); MEAN CORPUSCULAR HGB CONC 31.9 g/dL (32.4-35.8); MEAN PLATELET VOLUME 7.9 fL (7.4-10.4); MONOCYTES % (AUTO) 9 % (2-9); NEUTROPHILS % (AUTO) 56 % (42-75); PLATELET COUNT 308 x10^3/uL (130-400); RED BLOOD COUNT 3.64 x10^6/uL (3.82-5.3); RED CELL DISTRIBUTION WIDTH 19.3 % (9.6-15.2)
[2020-07-10 16:11] LABS: MD NO
[2020-07-10 16:13] LABS: ALANINE AMINOTRANSFERASE 18 U/L (12-78); ALBUMIN 3.8 g/dL (3.4-5.0); ANION GAP 3 mmol/L (5-15); CALCIUM 8.4 mg/dL (8.5-10.1); CHLORIDE 109 mmol/L (98-107); CREATININE 0.93 mg/dL (0.55-1.02)
[2020-07-10 16:15] LABS: ALKALINE PHOSPHATASE 64 U/L (45-117); BILIRUBIN,TOTAL 0.3 mg/dL (0.2-1.0); TOTAL PROTEIN 7.2 g/dL (6.4-8.2)
[2020-07-10] MEDS ORDERED: ONDANSETRON 2MG/ML, 2ML ONE (16:41)
[2020-07-10] MEDS ORDERED: FAMOTIDINE 20 MG/2 ML ONE (16:41)
[2020-07-10] MEDS ORDERED: METO50TA6 PO (16:49)
--- NOTE | 2020-07-10 17:08 | NUR ---
Pt here for multiple complaints: chronic low back pain, abdominal pain with N/V, pain in left chest from recent pacemaker placement, pt states she doesnt know when pacemaker was placed.
[2020-07-10 18:16] VITALS: BP 115/74
== END 2020-07-10 18:18 | disposition home or self-care (01) ==
LOC: ED 18:03
DX: K29.00 Acute gastritis without bleeding (principal); I10 Essential (primary) hypertension; K21.9 Gastro-esophageal reflux disease without esophagitis; I48.91 Unspecified atrial fibrillation; E78.5 Hyperlipidemia, unspecified; Z87.11 Personal history of peptic ulcer disease; Z90.89 Acquired absence of other organs; Z95.0 Presence of cardiac pacemaker
CPT/HCPCS: 36415; 74022; 80053; 83690; 85025; 96361; 96374; 96375; 99284; J2405; J7030

== ENCOUNTER 2020-07-27 17:54 | Emergency (ER) | payer MEDICARE, MEDICAID ==
[~2020-07-27] VITALS: Ht 160 cm; Wt 82.0 kg
[~2020-07-27 17:54] MED LIST changes: +METO50TA6 PO
--- NOTE | 2020-07-27 18:37 | NUR ---
PT PRESENTS TO THE ER FOR INTERMITTED PAIN RELATED TO PACEMAKER "IT'S GOING OFF, IT'S LIKE IT SHOCKS ME. WHEN IT GOES OFF MY PAIN IS A 10/10." PT ALSO HAS CHRONIC BACK PAIN. WHEN THIS RN TAKES REPORT AND DOES OWN ASSESSMENT THESE ARE PATIENTS ONLY COMPLAINTS. ERP TO BEDSIDE FOR ASSESSMENT AT THIS TIME. PT STATES "MY BACK HURTS." ERP CLARIFIES, "YOUR BACK OR YOUR BELLY." PT STATES "BOTH." PT ALSO STATES "I'M NOT ALLERGIC TO MORPHINE PER SAY BUT IT JUST DOESN'T WORK FOR ME. IT DOESN'T DO THE JOB."
[2020-07-27] MEDS ORDERED: SODIUM CHLORIDE FLUSH 10ML SYR IVF ONE (19:00)
[2020-07-27] MEDS ORDERED: SODIUM CHLORIDE 0.9% 1,000ML IVBOLUS ONE (19:00)
[2020-07-27] MEDS ORDERED: ONDANSETRON 2MG/ML, 2ML IVPush ONE (19:00)
[2020-07-27] MEDS ORDERED: HYDROmorphone 1 MG/ML, 1ML INJ IV ONE ×2 (19:00→19:30)
[2020-07-27 19:08] LABS: MICROSCOPIC NOT IND
[2020-07-27 19:15] LABS: BASOPHILS % (AUTO) 1 % (0-1); EOSINOPHILS % (AUTO) 3 % (1-7); LYMPHOCYTES % (AUTO) 35 % (22-44); MEAN CORPUSCULAR HEMOGLOBIN 24.3 pg (27.0-34.8); MONOCYTES % (AUTO) 7 % (2-9); NEUTROPHILS % (AUTO) 54 % (42-75); PLATELET COUNT 295 x10^3/uL (130-400); RED BLOOD COUNT 4.02 x10^6/uL (3.82-5.3); RED CELL DISTRIBUTION WIDTH 21.2 % (9.6-15.2)
[2020-07-27 19:21] LABS: ALANINE AMINOTRANSFERASE 20 U/L (12-78); ALBUMIN 4.2 g/dL (3.4-5.0); ANION GAP 5 mmol/L (5-15); CALCIUM 8.8 mg/dL (8.5-10.1); CHLORIDE 109 mmol/L (98-107)
[2020-07-27 19:22] LABS: MD MORPH REVIEW ONLY
[2020-07-27 19:25] LABS: ALKALINE PHOSPHATASE 82 U/L (45-117); BILIRUBIN,TOTAL 0.3 mg/dL (0.2-1.0); CREATININE 1.16 mg/dL (0.55-1.02); TOTAL PROTEIN 7.7 g/dL (6.4-8.2); TROPONIN I < 0.015 ng/mL (0.000-0.045)
[2020-07-27] MEDS ORDERED: HYDROmorphone 1 MG/ML, 1ML INJ ONE (19:31)
[2020-07-27 20:31] LABS: <PLATELET ESTIMATE> ADEQUATE; <PLT MORPHOLOGY> NORMAL PLT MORPH; ANISOCYTOSIS 1+; HYPOCHROMIA 1+; MICROCYTOSIS 1+
--- NOTE | 2020-07-27 21:14 | NUR ---
PT HAS REMAINED IN BED, WITH BED RAILS UP AND CALL LIGHT IN REACH. PT WATCHING TV, NADN. RESPIRATIONS EVEN AND UNLABORED.
[2020-07-27] MEDS ORDERED: METOCLOPRAMIDE 5 MG/ML, 2ML ONE (21:21)
[2020-07-27] MEDS ORDERED: METOCLOPRAMIDE 5 MG/ML, 2ML IVPush ONE (21:30)
[2020-07-27 21:34] VITALS: BP 120/56
== END 2020-07-27 21:53 | disposition home or self-care (01) ==
LOC: ED 18:04
DX: D64.9 Anemia, unspecified (principal); R10.32 Left lower quadrant pain; R10.31 Right lower quadrant pain; R11.2 Nausea with vomiting, unspecified; R07.9 Chest pain, unspecified; I10 Essential (primary) hypertension; E78.5 Hyperlipidemia, unspecified; K21.9 Gastro-esophageal reflux disease without esophagitis; I48.91 Unspecified atrial fibrillation; Z90.89 Acquired absence of other organs; Z95.0 Presence of cardiac pacemaker; Z87.891 Personal history of nicotine dependence
CPT/HCPCS: 36415; 71045; 80053; 81003; 84484; 85025; 93005; 96361; 96374; 96375; 99285; J1170; J2765; J7030

== ENCOUNTER 2020-08-14 13:08 | Emergency (ER) | payer MEDICARE, MEDICAID ==
[~2020-08-14] VITALS: Ht 160 cm; Wt 80.0 kg
[2020-08-14] MEDS ORDERED: ACETAMINOPHEN 325 MG TABLET PO ONE (13:30)
[2020-08-14] MEDS ORDERED: SODIUM CHLORIDE FLUSH 10ML SYR IVF ONE (13:30)
[2020-08-14] MEDS ORDERED: ACETAMINOPHEN 325 MG TABLET ONE (13:38)
[2020-08-14 14:06] LABS: BASOPHILS % (AUTO) 1 % (0-1); EOSINOPHILS % (AUTO) 3 % (1-7); LYMPHOCYTES % (AUTO) 25 % (22-44); MEAN CORPUSCULAR HEMOGLOBIN 23.7 pg (27.0-34.8); MEAN CORPUSCULAR HGB CONC 32.2 g/dL (32.4-35.8); MEAN PLATELET VOLUME 7.6 fL (7.4-10.4); MONOCYTES % (AUTO) 7 % (2-9); NEUTROPHILS % (AUTO) 64 % (42-75); PLATELET COUNT 288 x10^3/uL (130-400); RED CELL DISTRIBUTION WIDTH 21.5 % (9.6-15.2)
[2020-08-14 14:07] LABS: MD NO
[2020-08-14 14:17] LABS: ALBUMIN 3.7 g/dL (3.4-5.0); ANION GAP 2 mmol/L (5-15); CALCIUM 8.5 mg/dL (8.5-10.1); CHLORIDE 112 mmol/L (98-107)
[2020-08-14 14:20] LABS: ALANINE AMINOTRANSFERASE 20 U/L (12-78); ALKALINE PHOSPHATASE 67 U/L (45-117); BILIRUBIN,TOTAL 0.3 mg/dL (0.2-1.0); CREATININE 0.88 mg/dL (0.55-1.02)
[2020-08-14 14:27] LABS: INTERNATIONAL NORMALIZED RATIO 1.04 (0.93-1.1)
[2020-08-14 14:40] VITALS: BP 139/59
--- NOTE | 2020-08-14 14:40 | NUR ---
URINE COLLECTED VIA STRAIGHT CATH. UA COLLECTED AND TAKEN TO LAB. PT PREVIOUSLY AMBULATED TO RESTROOM WITH STEADY GAIT.
[2020-08-14 14:50] LABS: MICROSCOPIC NOT IND
--- NOTE | 2020-08-14 15:02 | NUR ---
ALL RESULTS ARE BACK AT THIS TIME. CHART UP FOR RECHECK.
== END 2020-08-14 15:27 | disposition home or self-care (01) ==
LOC: ED 13:41
DX: G89.29 Other chronic pain (principal); R10.32 Left lower quadrant pain; M54.5 Low back pain; K64.8 Other hemorrhoids; D50.8 Other iron deficiency anemias; R10.31 Right lower quadrant pain; I10 Essential (primary) hypertension; I48.91 Unspecified atrial fibrillation; K21.9 Gastro-esophageal reflux disease without esophagitis; Z95.0 Presence of cardiac pacemaker; E78.5 Hyperlipidemia, unspecified; Z90.89 Acquired absence of other organs; Z98.51 Tubal ligation status
CPT/HCPCS: 36415; 80053; 81003; 85025; 85610; 93005; 99284

== ENCOUNTER 2020-09-06 12:09 | Emergency (ER) | payer OTHER, MEDICAID ==
[~2020-09-06] VITALS: Ht 160 cm; Wt 83.9 kg
--- NOTE | 2020-09-06 12:14 | NUR ---
PT BIB EMS FRO RLQ ABD PAIN X3-4 DAYS. PT STATES "IM NOT SURE IF I HAVE MY APPENDIX OR NOT". PT DOES HAVE HX OF COLON RESECTION. PT RECEIVED 100 MCG OF FENTANYL AND 4MG ZOFRAN CRYPTOLOGIC TECHNICIAN TECHNICAL. PT RESTING ON GURNEY. CONNECTED TO ALL MONITORING EQUIPMENT.
[2020-09-06] MEDS ORDERED: SODIUM CHLORIDE 0.9% 1,000ML IVBOLUS ONE (12:30)
[2020-09-06] MEDS ORDERED: ONDANSETRON 2MG/ML, 2ML IVPush ONE ×2 (12:30→14:30)
[2020-09-06] MEDS ORDERED: FAMOTIDINE 20 MG/2 ML IVPush ONE (12:30)
[2020-09-06] MEDS ORDERED: SODIUM CHLORIDE FLUSH 10ML SYR IVF ONE (12:30)
[2020-09-06] MEDS ORDERED: FAMOTIDINE 20 MG/2 ML ONE (12:47)
[2020-09-06] MEDS ORDERED: ONDANSETRON 2MG/ML, 2ML ONE (12:47)
[2020-09-06 13:02] LABS: BASOPHILS % (AUTO) 1 % (0-1); EOSINOPHILS % (AUTO) 2 % (1-7); LYMPHOCYTES % (AUTO) 17 % (22-44); MEAN CORPUSCULAR HEMOGLOBIN 22.7 pg (27.0-34.8); MEAN CORPUSCULAR HGB CONC 31.9 g/dL (32.4-35.8); MEAN PLATELET VOLUME 7.9 fL (7.4-10.4); MONOCYTES % (AUTO) 7 % (2-9); NEUTROPHILS % (AUTO) 73 % (42-75); PLATELET COUNT 328 x10^3/uL (130-400); RED BLOOD COUNT 4.38 x10^6/uL (3.82-5.3); RED CELL DISTRIBUTION WIDTH 22.7 % (9.6-15.2)
[2020-09-06 13:06] LABS: ALANINE AMINOTRANSFERASE 24 U/L (12-78); ALBUMIN 3.9 g/dL (3.4-5.0); ANION GAP 3 mmol/L (5-15); CALCIUM 8.9 mg/dL (8.5-10.1); CHLORIDE 116 mmol/L (98-107); CREATININE 0.88 mg/dL (0.55-1.02)
[2020-09-06 13:08] LABS: ALKALINE PHOSPHATASE 61 U/L (45-117); BILIRUBIN,TOTAL 0.4 mg/dL (0.2-1.0); TOTAL PROTEIN 7.3 g/dL (6.4-8.2)
[2020-09-06 13:30] LABS: ANISOCYTOSIS 1+; HYPOCHROMIA 1+; MD MORPH REVIEW ONLY; MICROCYTOSIS 1+
[2020-09-06 13:31] LABS: <PLATELET ESTIMATE> ADEQUATE; <PLT MORPHOLOGY> NORMAL PLT MORPH
--- NOTE | 2020-09-06 13:54 | NUR ---
UA COLLECTED TO CT SCAN AT [id number]
[2020-09-06] MEDS ORDERED: HYDROmorphone 1 MG/ML, 1ML INJ ONE (14:11)
--- NOTE | 2020-09-06 14:19 | NUR ---
MEDICATED PER EMAR FOR BACK/ABD P[AIN AT 03/05 UPDATED ON ESTIMATED POC
[2020-09-06 14:24] LABS: MICROSCOPIC INDICATED
[2020-09-06] MEDS ORDERED: HYDROmorphone 2 MG/ML, 1ML IVPush ONE (14:30)
[2020-09-06] MEDS ORDERED: OMNIPAQUE 350 MG/ML, 100ML BOTTLE ONE (14:38)
[2020-09-06 15:15] VITALS: BP 140/79
== END 2020-09-06 15:17 | disposition home or self-care (01) ==
LOC: ED 15:05
DX: M51.36 Other intervertebral disc degeneration, lumbar region (principal); K59.00 Constipation, unspecified; R10.84 Generalized abdominal pain; I10 Essential (primary) hypertension; E78.5 Hyperlipidemia, unspecified; I48.91 Unspecified atrial fibrillation; G89.29 Other chronic pain
CPT/HCPCS: 36415; 72110; 74177; 80053; 81001; 83690; 85025; 96361; 96374; 96375; 96376; 99284; J1170; J2405; J7030; Q9967

== ENCOUNTER 2020-09-21 12:37 | Emergency (ER) | payer OTHER, MEDICAID ==
[~2020-09-21] VITALS: Ht 160 cm; Wt 80.0 kg
[~2020-09-21 12:37] MED LIST changes: +HYDR-1067 PO; -HYDR-3240 PO
--- NOTE | 2020-09-21 13:15 | NUR ---
Per EMS this pt called for CP that started at 2am but she couldn't leave the dogs she was watching so she waited to call 911. Upon arrival to the ER, pt immediately placed on all monitors, pt's first statement to this nurse is "my back is killing me." Pt with h of CBP. This RN questioned if her back or her chest was hurting, pt states both. Pt indicated to low back. Pt asked how bad her pain was she stated "9. Wait my back or my chest? My back is a 9, my chest is a 7." Pt conversing with RN while this RN at bedside charting, HUSSAIN. This RN left room, immediately called back to bedside as pt was experiencing nausea and dry heaving. Vomit bag given. EKG done, pt conversing with tech prior to EKG, able to hold still for EKG. Awaiting bedside eval and orders from MD Miguel. Will continue to monitor.
[2020-09-21] MEDS ORDERED: OXYcodone/APAP 10/325MG TABLET PO ONE (14:00)
--- NOTE | 2020-09-21 14:07 | NUR ---
Pt to imaging.
[2020-09-21 14:11] LABS: BASOPHILS % (AUTO) 1 % (0-1); EOSINOPHILS % (AUTO) 1 % (1-7); LYMPHOCYTES % (AUTO) 23 % (22-44); MEAN CORPUSCULAR HEMOGLOBIN 22.9 pg (27.0-34.8); MEAN CORPUSCULAR HGB CONC 31.6 g/dL (32.4-35.8); MEAN PLATELET VOLUME 7.4 fL (7.4-10.4); MONOCYTES % (AUTO) 5 % (2-9); NEUTROPHILS % (AUTO) 70 % (42-75); PLATELET COUNT 301 x10^3/uL (130-400); RED BLOOD COUNT 4.23 x10^6/uL (3.82-5.3); RED CELL DISTRIBUTION WIDTH 22.5 % (9.6-15.2)
[2020-09-21 14:18] LABS: ALANINE AMINOTRANSFERASE 17 U/L (12-78); ALBUMIN 3.7 g/dL (3.4-5.0); ANION GAP 4 mmol/L (5-15); CALCIUM 8.6 mg/dL (8.5-10.1); CHLORIDE 114 mmol/L (98-107)
[2020-09-21 14:23] LABS: ALKALINE PHOSPHATASE 60 U/L (45-117); BILIRUBIN,TOTAL 0.6 mg/dL (0.2-1.0); TOTAL PROTEIN 6.9 g/dL (6.4-8.2); TROPONIN I < 0.015 ng/mL (0.000-0.045)
[2020-09-21] MEDS ORDERED: OXYcodone/APAP 10/325MG TABLET ONE (14:29)
[2020-09-21] MEDS ORDERED: PROMETHAZINE 25 MG/ML, 1ML ONE (14:36)
[2020-09-21] MEDS ORDERED: MAALOX/HYOSCYAMINE/LIDOCAINE 45 ML BTL ONE (14:36)
[2020-09-21 14:53] LABS: <PLATELET ESTIMATE> ADEQUATE; MD MORPH REVIEW ONLY
[2020-09-21 14:54] LABS: <PLT MORPHOLOGY> NORMAL PLT MORPH; ANISOCYTOSIS 1+; HYPOCHROMIA 1+; MICROCYTOSIS 1+
[2020-09-21] MEDS ORDERED: MAALOX/HYOSCYAMINE/LIDOCAINE 45 ML BTL PO ONE (15:00)
[2020-09-21] MEDS ORDERED: PROMETHAZINE 25 MG/ML, 1ML IM ONE (15:00)
[2020-09-21 15:38] LABS: MICROSCOPIC INDICATED
--- NOTE | 2020-09-21 15:47 | NUR ---
Pt sitting, talking on her phone.
--- NOTE | 2020-09-21 16:05 | NUR ---
MD Miguel back to bedside to update PT on POC.
[2020-09-21 17:03] VITALS: BP 167/67
== END 2020-09-21 17:05 | disposition home or self-care (01) ==
LOC: ED 14:18
DX: R07.89 Other chest pain (principal); E11.65 Type 2 diabetes mellitus with hyperglycemia; M54.16 Radiculopathy, lumbar region; G89.29 Other chronic pain; I10 Essential (primary) hypertension; K21.9 Gastro-esophageal reflux disease without esophagitis; I48.91 Unspecified atrial fibrillation; Z87.11 Personal history of peptic ulcer disease; E78.5 Hyperlipidemia, unspecified; Z88.0 Allergy status to penicillin; Z88.5 Allergy status to narcotic agent; Z91.02 Food additives allergy status; Z91.018 Allergy to other foods
CPT/HCPCS: 36415; 70450; 71045; 80053; 81001; 83690; 83880; 84484; 85025; 85379; 93005; 96372; 99284; J2550

== ENCOUNTER 2020-09-27 16:22 | Emergency (ER) | payer OTHER, MEDICAID ==
[~2020-09-27] VITALS: Ht 167.6 cm; Wt 75.0 kg
[~2020-09-27 16:22] MED LIST changes: -ASPI-515 PO; +ASPI-963 PO; -DICY20TA3 PO; +DICY20TA4 PO
[2020-09-27] MEDS ORDERED: METHOCARBAMOL 750 MG TABLET PO ONE (17:00)
[2020-09-27] MEDS ORDERED: METHOCARBAMOL 750 MG TABLET ONE (17:46)
--- NOTE | 2020-09-27 18:13 | NUR ---
Pt sleeping, awakens to RN coming into room then reports she needs pain meds. Will request from provider.
[2020-09-27 18:45] VITALS: BP 123/71
== END 2020-09-27 18:56 | disposition home or self-care (01) ==
LOC: ED 18:14
DX: S39.012A Strain of muscle, fascia and tendon of lower back, initial encounter (principal); S29.012A Strain of muscle and tendon of back wall of thorax, initial encounter; S09.90XA Unspecified injury of head, initial encounter; R55 Syncope and collapse; I10 Essential (primary) hypertension; E11.9 Type 2 diabetes mellitus without complications; K21.9 Gastro-esophageal reflux disease without esophagitis; E78.5 Hyperlipidemia, unspecified; Z90.89 Acquired absence of other organs; Z95.0 Presence of cardiac pacemaker; Z87.11 Personal history of peptic ulcer disease; W01.0XXA Fall on same level from slipping, tripping and stumbling without subsequent striking against object, initial encounter; Y93.89 Activity, other specified; Y92.009 Unspecified place in unspecified non-institutional (private) residence as the place of occurrence of the external cause; Y99.8 Other external cause status
CPT/HCPCS: 70450; 72072; 72110; 99284

== ENCOUNTER 2020-10-26 12:01 | Emergency (ER) | payer OTHER, MEDICAID ==
[~2020-10-26] VITALS: Ht 160 cm; Wt 81.6 kg
[2020-10-26] MEDS ORDERED: SODIUM CHLORIDE FLUSH 10ML SYR IVF ONE (12:30)
[2020-10-26] MEDS ORDERED: ONDANSETRON 2MG/ML, 2ML IVPush ONE (12:30)
[2020-10-26] MEDS ORDERED: SODIUM CHLORIDE 0.9% 1,000ML IVBOLUS ONE (12:30)
[2020-10-26 12:33] LABS: BASOPHILS % (AUTO) 1 % (0-1); EOSINOPHILS % (AUTO) 1 % (1-7); LYMPHOCYTES % (AUTO) 16 % (22-44); MEAN CORPUSCULAR HEMOGLOBIN 23.6 pg (27.0-34.8); MEAN PLATELET VOLUME 7.7 fL (7.4-10.4); MONOCYTES % (AUTO) 5 % (2-9); NEUTROPHILS % (AUTO) 77 % (42-75); PLATELET COUNT 317 x10^3/uL (130-400); RED BLOOD COUNT 4.55 x10^6/uL (3.82-5.3); RED CELL DISTRIBUTION WIDTH 21.6 % (9.6-15.2)
[2020-10-26] MEDS ORDERED: MAALOX/HYOSCYAMINE/LIDOCAINE 45 ML BTL ONE (12:36)
--- NOTE | 2020-10-26 12:37 | NUR ---
Pt yelling and crying from pain.
--- NOTE | 2020-10-26 12:40 | NUR ---
Pt immediately follows up with "that karina is tall," as someone walks by. Pt asking for warm blankets.
[2020-10-26 12:42] LABS: ALANINE AMINOTRANSFERASE 19 U/L (12-78); ALBUMIN 4.1 g/dL (3.4-5.0); ANION GAP 5 mmol/L (5-15); CHLORIDE 111 mmol/L (98-107)
[2020-10-26] MEDS ORDERED: ONDANSETRON 2MG/ML, 2ML ONE (12:43)
[2020-10-26 12:48] LABS: ALKALINE PHOSPHATASE 64 U/L (45-117); BILIRUBIN,TOTAL 0.4 mg/dL (0.2-1.0); CREATININE 1.14 mg/dL (0.55-1.02); MD SCAN; TOTAL PROTEIN 7.5 g/dL (6.4-8.2); TROPONIN I < 0.015 ng/mL (0.000-0.045)
[2020-10-26 12:53] LABS: MICROSCOPIC AUTO
[2020-10-26] MEDS ORDERED: MAALOX/HYOSCYAMINE/LIDOCAINE 45 ML BTL PO ONE (13:00)
--- NOTE | 2020-10-26 13:01 | NUR ---
Pt asked if this RN administed opiates. Pt medicated to MAR and educated about meds prior to admin. Pt replies "oh okay, I was just feeling it in my head, so I thought I would ask, well whatever, if it works, it works." Call light on, RN to bedside to check on pt. Pt had d/c'd all monitors and pulled call light from wall. Needs adressed, pt watching TV. Connected back to monitors. Will continue to monitor.
--- NOTE | 2020-10-26 13:32 | NUR ---
US at bedside.
--- NOTE | 2020-10-26 13:50 | NUR ---
BREAK RN: PT STATES 10/10 ABD PAIN AT THIS TIME. RN TO INFORM ERMD.
--- NOTE | 2020-10-26 13:53 | NUR ---
BREAK RN: RN INFORMED PA THAT PT WAS IN 10/10 PAIN.
[2020-10-26] MEDS ORDERED: HYDROmorphone 1 MG/ML, 1ML INJ IV ONE (14:00)
[2020-10-26] MEDS ORDERED: HYDROmorphone 1 MG/ML, 1ML INJ ONE (14:02)
--- NOTE | 2020-10-26 14:04 | NUR ---
BREAK RN: PT MEDICATED PER EMAR. RN TO MONITOR THEN DC WHEN STABLE.
[2020-10-26 14:48] VITALS: BP 105/57
== END 2020-10-26 14:51 | disposition home or self-care (01) ==
LOC: ED 14:40
DX: K86.1 Other chronic pancreatitis (principal); D64.9 Anemia, unspecified; R94.31 Abnormal electrocardiogram [ECG] [EKG]; E11.9 Type 2 diabetes mellitus without complications; K21.9 Gastro-esophageal reflux disease without esophagitis; I48.91 Unspecified atrial fibrillation; Z87.11 Personal history of peptic ulcer disease; E78.5 Hyperlipidemia, unspecified; Z90.89 Acquired absence of other organs; Z95.0 Presence of cardiac pacemaker; Z88.0 Allergy status to penicillin
CPT/HCPCS: 36415; 76700; 80053; 81001; 83690; 84484; 85025; 93005; 96361; 96374; 96375; 99284; J1170; J2405; J7030

== ENCOUNTER 2020-11-25 17:58 | Emergency (ER) | payer OTHER, MEDICAID ==
[~2020-11-25] VITALS: Ht 160 cm; Wt 85.8 kg
--- NOTE | 2020-11-25 18:07 | NUR ---
late entry d/t patient care: PT BIBA WITH C/O STERNAL AND RIGHT CHEST PAIN RADIATING TO BACK AND RIGHT SHOULDER, WORSE WITH INSPIRATION , ONSET THIS AM AT 0200. PT TOOK 325 ASA AND 1 DOSE NITRO AT ONSET, NO IMPROVEMENT OF PAIN. ALL MONTIORS IN PLACE. EDMD SAHM AT BEDSIDE.
[2020-11-25 18:25] LABS: BASOPHILS % (AUTO) 2 % (0-1); EOSINOPHILS % (AUTO) 2 % (1-7); LYMPHOCYTES % (AUTO) 34 % (22-44); MEAN CORPUSCULAR HEMOGLOBIN 24.4 pg (27.0-34.8); MEAN CORPUSCULAR HGB CONC 32.4 g/dL (32.4-35.8); MEAN PLATELET VOLUME 7.6 fL (7.4-10.4); MONOCYTES % (AUTO) 7 % (2-9); NEUTROPHILS % (AUTO) 56 % (42-75); PLATELET COUNT 317 x10^3/uL (130-400); RED BLOOD COUNT 4.34 x10^6/uL (3.82-5.3); RED CELL DISTRIBUTION WIDTH 20.7 % (9.6-15.2)
[2020-11-25 18:29] LABS: MD NO
[2020-11-25] MEDS ORDERED: NITROGLYCERIN SINGLE TAB 0.4 MG SL PRN (18:30)
[2020-11-25] MEDS ORDERED: HYDROmorphone 1 MG/ML, 1ML INJ IV ONE (18:30)
[2020-11-25] MEDS ORDERED: SODIUM CHLORIDE FLUSH 10ML SYR IVF ONE (18:30)
[2020-11-25] MEDS ORDERED: ONDANSETRON 2MG/ML, 2ML IVPush ONE (18:30)
--- NOTE | 2020-11-25 18:30 | NUR ---
LATE ENTRY FOR 1830: PT REQUESTING DILAUDID , ORDER RECEIVED FROM MD SANCHEZ. INSTRUCTED RN TO HOLD NITRO DOSE.
[2020-11-25 18:36] LABS: ALANINE AMINOTRANSFERASE 17 U/L (12-78); ALBUMIN 3.8 g/dL (3.4-5.0); ANION GAP 7 mmol/L (5-15); CALCIUM 8.9 mg/dL (8.5-10.1); CHLORIDE 111 mmol/L (98-107)
[2020-11-25 18:41] LABS: ALKALINE PHOSPHATASE 64 U/L (45-117); BILIRUBIN,TOTAL 0.2 mg/dL (0.2-1.0); TOTAL PROTEIN 7.4 g/dL (6.4-8.2); TROPONIN I < 0.015 ng/mL (0.000-0.045)
[2020-11-25] MEDS ORDERED: HYDROmorphone 1 MG/ML, 1ML INJ ONE (18:56)
[2020-11-25] MEDS ORDERED: ONDANSETRON 2MG/ML, 2ML ONE (18:56)
--- NOTE | 2020-11-25 19:00 | NUR ---
late entry d/t patient care: report given to CORIN Lee who is assuming care.
--- NOTE | 2020-11-25 19:03 | NUR ---
RECEIVED REPORT FROM CORIN AN. PT RESTING ON [facility]. VSS. MEDICATED PER OCT.
--- NOTE | 2020-11-25 20:12 | NUR ---
PT RESTING ON GURNEY. NADN. HOLLEY.
[2020-11-25 20:28] LABS: TROPONIN I < 0.015 ng/mL (0.000-0.045)
--- NOTE | 2020-11-25 21:00 | NUR ---
PT CHART REVIEWED AND PLACED FOR RECHECK.
--- NOTE | 2020-11-25 21:02 | NUR ---
REPORT GIVEN TO CORIN CARRANZA.
--- NOTE | 2020-11-25 21:27 | NUR ---
Report from Miryam le. First contact pt requests more dilaudid. VSS. Labs WNL. Appears comfortable. Defer to ERP.
[2020-11-25 21:46] VITALS: BP 122/71
--- NOTE | 2020-11-25 21:54 | NUR ---
Pt became very upset and argumentative when informed that we no longer provide cab vouchers. Pt directed to medicare/[place] telephone to arrange for tx. Also provided with bus pass.
== END 2020-11-25 21:56 | disposition home or self-care (01) ==
LOC: ED 19:42
DX: R07.2 Precordial pain (principal); G89.29 Other chronic pain; M54.5 Low back pain; I10 Essential (primary) hypertension; K21.9 Gastro-esophageal reflux disease without esophagitis; I48.91 Unspecified atrial fibrillation; E78.5 Hyperlipidemia, unspecified; R94.31 Abnormal electrocardiogram [ECG] [EKG]; E11.9 Type 2 diabetes mellitus without complications; Z95.0 Presence of cardiac pacemaker; Z90.89 Acquired absence of other organs; Z98.51 Tubal ligation status
CPT/HCPCS: 36415; 71045; 80053; 83880; 84484; 85025; 93005; 96374; 96375; 99283; J1170; J2405

== ENCOUNTER 2020-12-04 18:16 | Emergency (ER) | payer OTHER, MEDICAID ==
[~2020-12-04] VITALS: Ht 160 cm; Wt 75.0 kg
[~2020-12-04 18:16] MED LIST changes: -HYDR-1067 PO; +HYDR-2214 PO; -OMEP40CA42 PO; +OMEP40CA8 PO
--- NOTE | 2020-12-04 18:38 | NUR ---
PT PRESENTS TO ED AFTER GLF AT [facility]. PT MAKES PLEASANT CONVERSATION WITH EMS, LAUGHING AND JOKING. WHEN EMS TALKS WITH RN, PT BEGINS GUARDING ARM AND MAKING MOANING SOUNDS.
[2020-12-04] MEDS ORDERED: KETOROLAC 30 MG/1 ML ONE (18:41)
[2020-12-04] MEDS ORDERED: PLEASE ENTER HEIGHT AND WEIGHT MC SCH (19:00)
[2020-12-04] MEDS ORDERED: KETOROLAC 30 MG/1 ML IVPush ONE (19:00)
--- NOTE | 2020-12-04 19:45 | NUR ---
PT COMPLAINS OF CONTINUED PAIN. ERMD AWARE. ERMD TO DISCUSS DC WITH PT.
[2020-12-04 20:04] VITALS: BP 126/78
== END 2020-12-04 20:07 | disposition home or self-care (01) ==
LOC: ED 20:01
DX: S63.502A Unspecified sprain of left wrist, initial encounter (principal); S16.1XXA Strain of muscle, fascia and tendon at neck level, initial encounter; M25.512 Pain in left shoulder; I10 Essential (primary) hypertension; E11.9 Type 2 diabetes mellitus without complications; K21.9 Gastro-esophageal reflux disease without esophagitis; E78.5 Hyperlipidemia, unspecified; I48.91 Unspecified atrial fibrillation; Z87.891 Personal history of nicotine dependence; X58.XXXA Exposure to other specified factors, initial encounter; Y93.89 Activity, other specified; Y92.89 Other specified places as the place of occurrence of the external cause; Y99.8 Other external cause status
CPT/HCPCS: 29125; 73110; 96372; 99283; J1885

== ENCOUNTER 2020-12-11 18:58 | Emergency (ER) | payer OTHER, MEDICAID ==
[~2020-12-11] VITALS: Ht 160 cm; Wt 80.5 kg
[~2020-12-11 18:58] MED LIST changes: +OMEP40CA42 PO; -OMEP40CA8 PO
--- NOTE | 2020-12-11 19:16 | NUR ---
PT. ARRIVES BY [facility] WITH C/O LOWER ABD. PAIN X 24 HRS. PT. IS A & O X 4 WITH A GCS OF 15. PT. HAS A HX OF PACEMAKER PLACEMENT, AFIB, LBP, PKU AND A BOWEL RESECTION. UPON ARRIVAL IV ACCESS WAS ESTABLISHED. PT. WAS PLACED ON THE CP MONITOR AND HAS THE HOB ELEVATED GREATER THAN 30 DEGREES. BREATH SOUNDS ARE CTA THROUGHOUT. S1 S2 NOTED WITHOUT MURMURS, RUBS OR GALLOPS. HER ABD IS SOFT AND ROUND WITH BS + X 4 QUADS. THE PT. RATES HER PAIN 10/10. SHE MOVES ALL EXTREMITIES WNL. SHE HAS A BLANKET FOR WARMTH AND THE CALL LIGHT IS IN PLACE WITH SIDERAILS UP X 2. REPORT WAS GIVEN TO THE PRIMARY CARE RN.
[2020-12-11] MEDS ORDERED: ONDANSETRON 2MG/ML, 2ML ONE (19:28)
[2020-12-11] MEDS ORDERED: ONDANSETRON 2MG/ML, 2ML IVPush ONE ×2 (19:30→20:00)
[2020-12-11] MEDS ORDERED: ACETAMINOPHEN 500 MG TABLET PO ONE (20:00)
[2020-12-11] MEDS ORDERED: SODIUM CHLORIDE 0.9% 1,000ML IVBOLUS ONE (20:00)
[2020-12-11] MEDS ORDERED: OMNIPAQUE 350 MG/ML, 100ML BOTTLE ONE (20:00)
--- NOTE | 2020-12-11 20:00 | NUR ---
Patient requesting dilaudid. States Tylenol does not help.
[2020-12-11 20:36] LABS: BASOPHILS % (AUTO) 1 % (0-1); EOSINOPHILS % (AUTO) 2 % (1-7); LYMPHOCYTES % (AUTO) 24 % (22-44); MEAN CORPUSCULAR HEMOGLOBIN 24.9 pg (27.0-34.8); MEAN CORPUSCULAR HGB CONC 32.5 g/dL (32.4-35.8); MEAN PLATELET VOLUME 8.8 fL (7.4-10.4); MONOCYTES % (AUTO) 7 % (2-9); NEUTROPHILS % (AUTO) 66 % (42-75); PLATELET COUNT 342 x10^3/uL (130-400); RED BLOOD COUNT 4.49 x10^6/uL (3.82-5.3); RED CELL DISTRIBUTION WIDTH 21.5 % (9.6-15.2)
[2020-12-11 20:37] LABS: MD NO
[2020-12-11 20:44] LABS: ALANINE AMINOTRANSFERASE 22 U/L (12-78); ALBUMIN 3.9 g/dL (3.4-5.0); ANION GAP 7 mmol/L (5-15); CALCIUM 8.9 mg/dL (8.5-10.1); CHLORIDE 111 mmol/L (98-107); CREATININE 0.86 mg/dL (0.55-1.02)
[2020-12-11 20:46] LABS: ALKALINE PHOSPHATASE 67 U/L (45-117); BILIRUBIN,TOTAL 0.3 mg/dL (0.2-1.0); TOTAL PROTEIN 7.5 g/dL (6.4-8.2)
--- NOTE | 2020-12-11 21:23 | NUR ---
Patient to CT.
--- NOTE | 2020-12-11 21:45 | NUR ---
ERP advised patient can have Tylenol but no Dilaudid. Notified patient; she agreed to take Tylenol.
[2020-12-11] MEDS ORDERED: metroNIDAZOLE 500 MG TABLET PO ONE (22:30)
[2020-12-11] MEDS ORDERED: CIPROFLOXACIN 500 MG TABLET PO ONE (22:30)
[2020-12-11] MEDS ORDERED: EPINEPHRINE 5 MG in SODIUM CHLORIDE 0.9% 245 ML IV PRN (22:30)
[2020-12-11] MEDS ORDERED: CIPROFLOXACIN 500 MG TABLET ONE (22:38)
[2020-12-11] MEDS ORDERED: metroNIDAZOLE 500 MG TABLET ONE (22:38)
[2020-12-11 22:41] VITALS: BP 125/49
--- NOTE | 2020-12-11 22:47 | NUR ---
Meds admin per oct. Patient tbdc.
--- NOTE | 2020-12-11 23:03 | NUR ---
Discharge instructions given. All questions and conerns addressed. Patient ambulatory with a steady gait. Belongings with patient.
== END 2020-12-11 23:05 | disposition home or self-care (01) ==
LOC: ED 20:56
DX: K57.32 Diverticulitis of large intestine without perforation or abscess without bleeding (principal); R11.2 Nausea with vomiting, unspecified; R19.7 Diarrhea, unspecified; I10 Essential (primary) hypertension; E11.9 Type 2 diabetes mellitus without complications; I48.91 Unspecified atrial fibrillation; K21.9 Gastro-esophageal reflux disease without esophagitis; E78.5 Hyperlipidemia, unspecified; Z90.89 Acquired absence of other organs; Z87.11 Personal history of peptic ulcer disease; Z95.0 Presence of cardiac pacemaker; Z87.891 Personal history of nicotine dependence
CPT/HCPCS: 36415; 74177; 80053; 83690; 85025; 96361; 96374; 99284; J2405; J7030; Q9967

== ENCOUNTER 2020-12-24 16:05 | Emergency (ER) | payer OTHER, MEDICAID ==
[~2020-12-24] VITALS: Ht 170.2 cm; Wt 80.0 kg
--- NOTE | 2020-12-24 16:24 | NUR ---
BIB BY [facility] FOR ABD PAIN/NAUSEA, ACUTE ON CHRONIC LUMBAR PAIN RADIATING TO THORACIC AREA ECG OBTAINED ON ARRIVAL, VSS ON DERMATOLOGICAL SURGEON NO FOCAL DEFICITS ASKING FOR PAIN MEDS ADMITS TO ETOH TODAY "JUST TWO GLASSES" HX OF BRADYCADIA WITH PACEMAKER PLACEMENT WELL SBO WITH RESECTION
[2020-12-24] MEDS ORDERED: SODIUM CHLORIDE FLUSH 10ML SYR IVF ONE (17:30)
[2020-12-24] MEDS ORDERED: HYDROmorphone 1 MG/ML, 1ML INJ ONE (17:30)
[2020-12-24] MEDS ORDERED: ONDANSETRON 2MG/ML, 2ML IVPush ONE (17:30)
[2020-12-24] MEDS ORDERED: HYDROmorphone 1 MG/ML, 1ML INJ IV ONE (17:30)
[2020-12-24] MEDS ORDERED: ONDANSETRON 2MG/ML, 2ML ONE (17:31)
[2020-12-24 17:43] LABS: BASOPHILS % (AUTO) 1 % (0-1); EOSINOPHILS % (AUTO) 1 % (1-7); LYMPHOCYTES % (AUTO) 25 % (22-44); MEAN CORPUSCULAR HEMOGLOBIN 24.9 pg (27.0-34.8); MEAN CORPUSCULAR HGB CONC 32.5 g/dL (32.4-35.8); MEAN PLATELET VOLUME 7.6 fL (7.4-10.4); MONOCYTES % (AUTO) 7 % (2-9); NEUTROPHILS % (AUTO) 66 % (42-75); PLATELET COUNT 343 x10^3/uL (130-400); RED BLOOD COUNT 4.41 x10^6/uL (3.82-5.3); RED CELL DISTRIBUTION WIDTH 21.7 % (9.6-15.2)
[2020-12-24 17:44] LABS: MD NO
[2020-12-24 17:51] VITALS: BP 118/71
--- NOTE | 2020-12-24 17:51 | NUR ---
PIV PLACED-MEDICATED PER EMAR UPDATED ON ESTIMATED POC
[2020-12-24 17:54] LABS: ANION GAP 7 mmol/L (5-15); CALCIUM 8.7 mg/dL (8.5-10.1); CHLORIDE 112 mmol/L (98-107)
[2020-12-24 17:59] LABS: ALANINE AMINOTRANSFERASE 30 U/L (12-78); ALKALINE PHOSPHATASE 60 U/L (45-117); BILIRUBIN,TOTAL 0.4 mg/dL (0.2-1.0); CREATININE 0.91 mg/dL (0.55-1.02); TOTAL PROTEIN 7.4 g/dL (6.4-8.2); TROPONIN I < 0.015 ng/mL (0.000-0.045)
--- NOTE | 2020-12-24 18:46 | NUR ---
WITH REASSESSMENT PAIN TO 0/10 UP TO RESTROM TO VOID WITH STEADY GAIT
--- NOTE | 2020-12-24 20:35 | NUR ---
ASSIST RN: D/C INSTRUCTIONS, MEDS & F/U APPT RV'WD WITH PT, SHE VERBALIZES UNDERSTANDING. RX GIVEN X1. ASSISTED PT OUT OF ED VIA WC. CAB VOUCHER PROVIDED.
== END 2020-12-24 20:36 | disposition home or self-care (01) ==
LOC: ED 16:20
DX: G89.29 Other chronic pain (principal); R10.84 Generalized abdominal pain; R07.2 Precordial pain; R07.89 Other chest pain; R11.2 Nausea with vomiting, unspecified; I10 Essential (primary) hypertension; K21.9 Gastro-esophageal reflux disease without esophagitis; I48.91 Unspecified atrial fibrillation; Z87.891 Personal history of nicotine dependence
CPT/HCPCS: 36415; 71045; 80053; 83690; 84484; 85025; 93005; 96374; 96375; 99283; J1170; J2405

== ENCOUNTER 2020-12-30 09:48 | Emergency (ER) | payer OTHER, MEDICAID ==
[~2020-12-30] VITALS: Ht 160 cm; Wt 81.8 kg
--- NOTE | 2020-12-30 09:53 | NUR ---
BIB EMS FOR C/O HARD ABCESS ON ANUS. STARTED 2 NIGHTS AGO. NO GOOD BM X 2 DAYS. 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 PT RESTING ON GURNEY. NADN. MONITORS APPLIED. VSS. WARM BLANKET PROVIDED.
--- NOTE | 2020-12-30 09:57 | NUR ---
ALEX PEREZ AT BEDSIDE FOR EVAL.
[2020-12-30] MEDS ORDERED: HYDROmorphone 1 MG/ML, 1ML INJ ONE ×2 (10:23→12:36)
[2020-12-30] MEDS ORDERED: ONDANSETRON 2MG/ML, 2ML ONE (10:23)
[2020-12-30] MEDS ORDERED: HYDROmorphone 1 MG/ML, 1ML INJ IV ONE ×2 (10:30→12:30)
[2020-12-30] MEDS ORDERED: ONDANSETRON 2MG/ML, 2ML IVPush ONE (10:30)
[2020-12-30] MEDS ORDERED: SODIUM CHLORIDE FLUSH 10ML SYR IVF ONE (10:30)
[2020-12-30 10:50] LABS: BASOPHILS % (AUTO) 1 % (0-1); EOSINOPHILS % (AUTO) 1 % (1-7); LYMPHOCYTES % (AUTO) 17 % (22-44); MEAN CORPUSCULAR HEMOGLOBIN 25.5 pg (27.0-34.8); MEAN CORPUSCULAR HGB CONC 32.6 g/dL (32.4-35.8); MEAN PLATELET VOLUME 8.1 fL (7.4-10.4); MONOCYTES % (AUTO) 6 % (2-9); NEUTROPHILS % (AUTO) 75 % (42-75); PLATELET COUNT 265 x10^3/uL (130-400); RED BLOOD COUNT 4.15 x10^6/uL (3.82-5.3); RED CELL DISTRIBUTION WIDTH 21.6 % (9.6-15.2)
[2020-12-30 10:54] LABS: MD NO
[2020-12-30 11:02] LABS: ALBUMIN 3.9 g/dL (3.4-5.0); ANION GAP 7 mmol/L (5-15); CHLORIDE 110 mmol/L (98-107)
[2020-12-30 11:06] LABS: ALANINE AMINOTRANSFERASE 19 U/L (12-78); ALKALINE PHOSPHATASE 69 U/L (45-117); BILIRUBIN,TOTAL 0.5 mg/dL (0.2-1.0); CREATININE 0.79 mg/dL (0.55-1.02); TOTAL PROTEIN 7.2 g/dL (6.4-8.2)
--- NOTE | 2020-12-30 11:38 | NUR ---
PT RESTING ON GURNEY. NADN. HOLLEY.
--- NOTE | 2020-12-30 12:00 | NUR ---
PT CHART REVIEWED AND PLACED FOR RECHECK.
--- NOTE | 2020-12-30 12:26 | NUR ---
ERP DR. MORGAN AT BEDSIDE FOR EVAL.
[2020-12-30] MEDS ORDERED: HYDROCORTISONE 25 MG SUPP PR ONE (12:30)
[2020-12-30] MEDS ORDERED: LIDOCAINE 4% CREAM 15GM TUBE TP ONE (12:30)
[2020-12-30 12:41] VITALS: BP 116/46
--- NOTE | 2020-12-30 12:44 | NUR ---
PT MEDICATED PER OCT. PT RESTING ON RUSLAN. VSS.
[2020-12-30] MEDS ORDERED: OMNIPAQUE 350 MG/ML, 100ML BOTTLE ONE (15:20)
== END 2020-12-30 13:22 | disposition home or self-care (01) ==
LOC: ED 11:20
DX: K64.9 Unspecified hemorrhoids (principal); R10.9 Unspecified abdominal pain; M54.5 Low back pain; R11.2 Nausea with vomiting, unspecified; E11.9 Type 2 diabetes mellitus without complications; I10 Essential (primary) hypertension; E78.5 Hyperlipidemia, unspecified; K21.9 Gastro-esophageal reflux disease without esophagitis; I48.91 Unspecified atrial fibrillation; G89.29 Other chronic pain; Z95.0 Presence of cardiac pacemaker; Z98.51 Tubal ligation status; Z90.89 Acquired absence of other organs
CPT/HCPCS: 36415; 72131; 74177; 80053; 85025; 96374; 96375; 96376; 99284; J1170; J2405; Q9967

== ENCOUNTER 2021-01-05 14:49 | Emergency (ER) | payer OTHER, MEDICAID ==
[~2021-01-05] VITALS: Ht 160 cm; Wt 72.0 kg
--- NOTE | 2021-01-05 14:50 | NUR ---
60 YR OLD FEMALE ARRIVED VIA EMS. PT HERE WITH C/O TAILBONE/LOW BACK TO MID BACK PAIN AND LEFT WRIST PAIN AFTER FALLING WHILE JOGGING. PT RECEIVED HOT PACK (INEFFECTIVE) IV, 4MG ZOFRAN, 2MG MORPHINE WHICH BROUGHT PAIN DOWN FROM 06/05 TO 05/06. UPO PT ARRIVAL PT STATES, "I TOLD THEM MORPHINE DOESNT WORK" PT WITH HX OF AFIB AND HAS A PACEMAKER. PT WITH MOANS/GROANS WITH MOVEMENT.
--- NOTE | 2021-01-05 15:07 | NUR ---
DR SANCHEZ AT BEDSIDE TO [facility] PT
[2021-01-05] MEDS ORDERED: KETOROLAC 30 MG/1 ML ONE (15:30)
[2021-01-05] MEDS ORDERED: KETOROLAC 30 MG/1 ML IV ONE (15:30)
[2021-01-05] MEDS ORDERED: METHOCARBAMOL 750 MG TABLET PO ONE (15:30)
[2021-01-05] MEDS ORDERED: SODIUM CHLORIDE FLUSH 10ML SYR IVF ONE (15:30)
[2021-01-05] MEDS ORDERED: METHOCARBAMOL 750 MG TABLET ONE (15:30)
--- NOTE | 2021-01-05 15:35 | NUR ---
Pt ambulatory to bathroom with stead gait.
[2021-01-05 16:43] VITALS: BP 120/72
== END 2021-01-05 16:56 | disposition home or self-care (01) ==
LOC: ED 16:00
DX: S33.5XXA Sprain of ligaments of lumbar spine, initial encounter (principal); S63.522A Sprain of radiocarpal joint of left wrist, initial encounter; I10 Essential (primary) hypertension; E11.9 Type 2 diabetes mellitus without complications; I48.91 Unspecified atrial fibrillation; K21.9 Gastro-esophageal reflux disease without esophagitis; E78.5 Hyperlipidemia, unspecified; Z90.89 Acquired absence of other organs; Z95.0 Presence of cardiac pacemaker; W18.30XA Fall on same level, unspecified, initial encounter; Y93.89 Activity, other specified; Y92.410 Unspecified street and highway as the place of occurrence of the external cause; Y99.8 Other external cause status
CPT/HCPCS: 29125; 73110; 73130; 96372; 99283; J1885

== ENCOUNTER 2021-01-15 18:03 | Emergency (ER) | payer OTHER, MEDICAID ==
[~2021-01-15] VITALS: Ht 160 cm; Wt 68.0 kg
[2021-01-15 18:12] VITALS: BP 121/89
--- NOTE | 2021-01-15 18:18 | NUR ---
BIBA FOR LEFT ARM AND SHOULD PAIN AND NUMBNESS AFTER GLF TODAY. PT STATES SHE FELL AND HIT HER LEFT SIDE OF HEAD AND HAD LOC FOR UNKNOWN AMOUNT OF TIME. PEARRLA. NO OBVIOUS DEFORMITY TO LEFT ARM. PT MOANING WHEN ATTEMPTING TO MOVE LEFT ARM.
[2021-01-15] MEDS ORDERED: METHOCARBAMOL 750 MG TABLET PO ONE (18:30)
[2021-01-15] MEDS ORDERED: METHOCARBAMOL 750 MG TABLET ONE (18:38)
--- NOTE | 2021-01-15 18:45 | NUR ---
PT IN IMAGING
[2021-01-15] MEDS ORDERED: KETOROLAC 30 MG/1 ML IVPush ONE (20:00)
[2021-01-15] MEDS ORDERED: KETOROLAC 30 MG/1 ML ONE (20:03)
[2021-01-15] MEDS ORDERED: KETOROLAC 30 MG/1 ML IM ONE (20:30)
== END 2021-01-15 20:22 | disposition home or self-care (01) ==
LOC: ED 18:21
DX: S16.1XXA Strain of muscle, fascia and tendon at neck level, initial encounter (principal); S09.90XA Unspecified injury of head, initial encounter; M19.012 Primary osteoarthritis, left shoulder; I10 Essential (primary) hypertension; K21.9 Gastro-esophageal reflux disease without esophagitis; E78.5 Hyperlipidemia, unspecified; Z87.11 Personal history of peptic ulcer disease; W01.0XXA Fall on same level from slipping, tripping and stumbling without subsequent striking against object, initial encounter; Y93.89 Activity, other specified; Y92.009 Unspecified place in unspecified non-institutional (private) residence as the place of occurrence of the external cause; Y99.8 Other external cause status
CPT/HCPCS: 70450; 72125; 73030; 96372; 99284; J1885; 99285

== ENCOUNTER 2021-01-22 15:00 | Emergency (ER) | payer OTHER, MEDICAID ==
[~2021-01-22] VITALS: Ht 160 cm; Wt 74.0 kg
[2021-01-22] MEDS ORDERED: METOCLOPRAMIDE 5 MG/ML, 2ML IVPush ONE (15:30)
[2021-01-22] MEDS ORDERED: MAALOX/HYOSCYAMINE/LIDOCAINE 45 ML BTL PO ONE (15:30)
[2021-01-22] MEDS ORDERED: DIPHENHYDRAMINE 50 MG/ML, 1ML IVPush ONE (15:30)
--- NOTE | 2021-01-22 15:30 | NUR ---
Pt found in room on full bedside monitor with 12 lead EKG stickers present and EMS IV to L ac saline locked and flushes well. No report received from EMS and [facility] personnel not present in dept. Pt states she has been in room for "awhile" and no MD investor relations director recalls receiving report from EMS. Triage completed along with sweatband flanger at this time and noted that MD has seen pt and orders present.
[2021-01-22 15:47] LABS: BASOPHILS % (AUTO) 1 % (0-1); EOSINOPHILS % (AUTO) 3 % (1-7); LYMPHOCYTES % (AUTO) 28 % (22-44); MEAN CORPUSCULAR HEMOGLOBIN 25.9 pg (27.0-34.8); MONOCYTES % (AUTO) 8 % (2-9); NEUTROPHILS % (AUTO) 61 % (42-75); PLATELET COUNT 280 x10^3/uL (130-400); RED BLOOD COUNT 4.43 x10^6/uL (3.82-5.3); RED CELL DISTRIBUTION WIDTH 20.8 % (9.6-15.2)
[2021-01-22] MEDS ORDERED: DIPHENHYDRAMINE 50 MG/ML, 1ML ONE (15:47)
[2021-01-22] MEDS ORDERED: METOCLOPRAMIDE 5 MG/ML, 2ML ONE (15:47)
[2021-01-22 15:48] LABS: MD MORPH REVIEW ONLY
[2021-01-22] MEDS ORDERED: MAALOX/HYOSCYAMINE/LIDOCAINE 45 ML BTL ONE (15:48)
[2021-01-22 15:57] LABS: ALANINE AMINOTRANSFERASE 20 U/L (12-78); ANION GAP 6 mmol/L (5-15); CHLORIDE 110 mmol/L (98-107)
[2021-01-22 16:02] LABS: ALKALINE PHOSPHATASE 68 U/L (45-117); BILIRUBIN,TOTAL 0.4 mg/dL (0.2-1.0); TOTAL PROTEIN 7.2 g/dL (6.4-8.2); TROPONIN I < 0.015 ng/mL (0.000-0.045)
[2021-01-22 16:04] LABS: ANISOCYTOSIS 1+; MICROCYTOSIS 1+
[2021-01-22 16:05] LABS: <PLATELET ESTIMATE> ADEQUATE; <PLT MORPHOLOGY> NORMAL PLT MORPH
[2021-01-22 18:17] VITALS: BP 136/84
== END 2021-01-22 18:19 | disposition home or self-care (01) ==
LOC: ED 15:12
DX: R07.89 Other chest pain (principal); K27.3 Acute peptic ulcer, site unspecified, without hemorrhage or perforation; I10 Essential (primary) hypertension; E78.5 Hyperlipidemia, unspecified; E11.9 Type 2 diabetes mellitus without complications; K21.9 Gastro-esophageal reflux disease without esophagitis; I48.91 Unspecified atrial fibrillation
CPT/HCPCS: 36415; 74022; 80053; 83690; 84484; 85025; 93005; 96374; 96375; 99283; J1200; J2765

== ENCOUNTER 2021-02-03 14:13 | Emergency (ER) | payer OTHER, MEDICAID ==
[~2021-02-03] VITALS: Ht 160 cm; Wt 71.3 kg
[~2021-02-03 14:13] MED LIST changes: -OMEP40CA42 PO; +OMEP40CA8 PO
[2021-02-03] MEDS ORDERED: ASPIRIN 81 MG TABLET CHEW PO ONE (14:30)
[2021-02-03] MEDS ORDERED: METHOCARBAMOL 1,000 MG in DEXTROSE 5% 100 ML IV ONE (14:30)
[2021-02-03] MEDS ORDERED: ONDANSETRON 2MG/ML, 2ML IVPush ONE (14:30)
[2021-02-03] MEDS ORDERED: ACETAMINOPHEN 500 MG TABLET PO ONE (14:30)
[2021-02-03] MEDS ORDERED: ACETAMINOPHEN 500 MG TABLET ONE (14:38)
[2021-02-03] MEDS ORDERED: ONDANSETRON 2MG/ML, 2ML ONE (14:38)
[2021-02-03] MEDS ORDERED: ASPIRIN 81 MG TABLET CHEW ONE (14:46)
--- NOTE | 2021-02-03 14:56 | NUR ---
SPOKE WITH PHARMACY ABOUT CHEWABLE ASPIRIN ORDER, OKAY TO GIVE PER PHARMACY, DOES NOT CONTAIN ASPARTAME.
--- NOTE | 2021-02-03 15:04 | NUR ---
PATIENT MEDICATED PER eMAR, WAITING FOR ROBAXIN TO COME FROM PHARMACY. CONNECTED TO MONITOR, VSS, NADN, CALL LIGHT WITHIN REACH.
--- NOTE | 2021-02-03 15:11 | NUR ---
SPOKE WITH PHARMACY, THEY WILL SEND ROBAXIN IV BAG.
[2021-02-03 15:12] LABS: BASOPHILS % (AUTO) 1 % (0-1); EOSINOPHILS % (AUTO) 1 % (1-7); LYMPHOCYTES % (AUTO) 23 % (22-44); MEAN CORPUSCULAR HEMOGLOBIN 26.2 pg (27.0-34.8); MEAN CORPUSCULAR HGB CONC 32.9 g/dL (32.4-35.8); MONOCYTES % (AUTO) 6 % (2-9); NEUTROPHILS % (AUTO) 69 % (42-75); PLATELET COUNT 278 x10^3/uL (130-400); RED BLOOD COUNT 4.43 x10^6/uL (3.82-5.3); RED CELL DISTRIBUTION WIDTH 20.7 % (9.6-15.2)
--- NOTE | 2021-02-03 15:20 | NUR ---
PATIENT AMBULATED TO BATHROOM WITH STEADY GAIT.
[2021-02-03 15:22] LABS: ALANINE AMINOTRANSFERASE 23 U/L (12-78); ALBUMIN 3.7 g/dL (3.4-5.0); ANION GAP 5 mmol/L (5-15); CALCIUM 8.5 mg/dL (8.5-10.1); CHLORIDE 110 mmol/L (98-107); CREATININE 0.69 mg/dL (0.55-1.02)
[2021-02-03 15:27] LABS: ALKALINE PHOSPHATASE 69 U/L (45-117); BILIRUBIN,TOTAL 0.4 mg/dL (0.2-1.0); TOTAL PROTEIN 7.4 g/dL (6.4-8.2); TROPONIN I < 0.015 ng/mL (0.000-0.045)
--- NOTE | 2021-02-03 17:08 | NUR ---
ERMD AT BEDSIDE TO DISCUSS POC.
[2021-02-03 17:10] VITALS: BP 120/77
--- NOTE | 2021-02-03 17:43 | NUR ---
IV removed with tip intact. Patient given discharge instructions and prescription and they have confirmed that they understand the instructions. Patient stable and ambulatory with steady gait. NAD, all questions answered appropriately, denies additional needs at this time. No personal belongings left in room after discharge. Taxi voucher provided to patient.
== END 2021-02-03 17:44 | disposition home or self-care (01) ==
LOC: ED 14:33
DX: R07.89 Other chest pain (principal); R06.02 Shortness of breath; R11.0 Nausea; R94.31 Abnormal electrocardiogram [ECG] [EKG]; I10 Essential (primary) hypertension; E11.9 Type 2 diabetes mellitus without complications; K21.9 Gastro-esophageal reflux disease without esophagitis; I48.91 Unspecified atrial fibrillation; G89.29 Other chronic pain; Z87.11 Personal history of peptic ulcer disease
CPT/HCPCS: 36415; 71045; 80053; 83690; 84484; 85025; 93005; 96365; 96375; 99284; J2405; J2800

== ENCOUNTER 2021-02-25 16:29 | Emergency (ER) | payer OTHER, MEDICAID ==
[~2021-02-25] VITALS: Ht 160 cm; Wt 79.4 kg
[2021-02-25] MEDS ORDERED: ONDANSETRON 2MG/ML, 2ML ONE (17:55)
[2021-02-25] MEDS ORDERED: HYDROmorphone 1 MG/ML, 1ML INJ ONE (17:55)
[2021-02-25] MEDS ORDERED: ONDANSETRON 2MG/ML, 2ML IVPush ONE (18:00)
[2021-02-25] MEDS ORDERED: HYDROmorphone 1 MG/ML, 1ML INJ IV ONE (18:00)
[2021-02-25 18:04] LABS: BASOPHILS % (AUTO) 1 % (0-1); EOSINOPHILS % (AUTO) 1 % (1-7); LYMPHOCYTES % (AUTO) 22 % (22-44); MEAN CORPUSCULAR HEMOGLOBIN 26.6 pg (27.0-34.8); MEAN CORPUSCULAR HGB CONC 32.8 g/dL (32.4-35.8); MEAN PLATELET VOLUME 7.7 fL (7.4-10.4); MONOCYTES % (AUTO) 8 % (2-9); NEUTROPHILS % (AUTO) 68 % (42-75); PLATELET COUNT 305 x10^3/uL (130-400); RED CELL DISTRIBUTION WIDTH 19.2 % (9.6-15.2)
[2021-02-25 18:17] LABS: ALANINE AMINOTRANSFERASE 20 U/L (12-78); ALBUMIN 3.8 g/dL (3.4-5.0); ANION GAP 7 mmol/L (5-15); CALCIUM 8.8 mg/dL (8.5-10.1); CHLORIDE 111 mmol/L (98-107); CREATININE 0.76 mg/dL (0.55-1.02); INTERNATIONAL NORMALIZED RATIO 1.07 (0.93-1.1); PROTHROMBIN TIME 11.4 Seconds (9.6-11.5)
[2021-02-25 18:19] LABS: ALKALINE PHOSPHATASE 65 U/L (45-117); BILIRUBIN,TOTAL 0.7 mg/dL (0.2-1.0); TOTAL PROTEIN 7.2 g/dL (6.4-8.2)
[2021-02-25] MEDS ORDERED: OMNIPAQUE 350 MG/ML, 100ML BOTTLE ONE (18:55)
[2021-02-25] MEDS ORDERED: METOCLOPRAMIDE 5 MG/ML, 2ML IVPush PRN (20:30)
[2021-02-25] MEDS ORDERED: DIPHENHYDRAMINE 50 MG/ML, 1ML IVPush ONE (20:30)
[2021-02-25] MEDS ORDERED: METOCLOPRAMIDE 5 MG/ML, 2ML ONE (20:43)
[2021-02-25] MEDS ORDERED: DIPHENHYDRAMINE 50 MG/ML, 1ML ONE (20:43)
[2021-02-25 20:54] VITALS: BP 105/57
== END 2021-02-25 20:56 | disposition home or self-care (01) ==
LOC: ED 16:50
DX: A09 Infectious gastroenteritis and colitis, unspecified (principal); I10 Essential (primary) hypertension; E11.9 Type 2 diabetes mellitus without complications; K21.9 Gastro-esophageal reflux disease without esophagitis; E78.5 Hyperlipidemia, unspecified; Z87.11 Personal history of peptic ulcer disease; Z90.89 Acquired absence of other organs; Z95.0 Presence of cardiac pacemaker
CPT/HCPCS: 36415; 74177; 80053; 83690; 85025; 85610; 85730; 96374; 96375; 99284; J1170; J1200; J2405; J2765; Q9967

== ENCOUNTER 2021-03-04 14:44 | Inpatient (IN) | payer OTHER, MEDICAID ==
[~2021-03-04] VITALS: Ht 172.7 cm; Wt 83.6 kg
--- NOTE | 2021-03-04 15:00 | NUR ---
PT HAS CO ABDOMINAL PAIN THAT RADIATES TO BACK. LUQ. N/V. STATES SHE HAS HAD BLOODY STOOL X 4 DAYS. DENIES CP OR SOB. PA AT BEDSIDE FOR EXAM.
[2021-03-04 15:14] LABS: BASOPHILS % (AUTO) 1 % (0-1); EOSINOPHILS % (AUTO) 2 % (1-7); LYMPHOCYTES % (AUTO) 22 % (22-44); MEAN CORPUSCULAR HGB CONC 32.9 g/dL (32.4-35.8); MEAN PLATELET VOLUME 7.8 fL (7.4-10.4); MONOCYTES % (AUTO) 6 % (2-9); NEUTROPHILS % (AUTO) 70 % (42-75); PLATELET COUNT 295 x10^3/uL (130-400); RED BLOOD COUNT 4.26 x10^6/uL (3.82-5.3); RED CELL DISTRIBUTION WIDTH 18.6 % (9.6-15.2)
[2021-03-04 15:23] LABS: ALANINE AMINOTRANSFERASE 20 U/L (12-78); ALBUMIN 3.7 g/dL (3.4-5.0); ANION GAP 7 mmol/L (5-15); CALCIUM 8.9 mg/dL (8.5-10.1); CHLORIDE 110 mmol/L (98-107); CREATININE 0.74 mg/dL (0.55-1.02)
[2021-03-04 15:26] LABS: ALKALINE PHOSPHATASE 64 U/L (45-117); BILIRUBIN,TOTAL 0.4 mg/dL (0.2-1.0); TOTAL PROTEIN 7.3 g/dL (6.4-8.2)
[2021-03-04] MEDS ORDERED: ONDANSETRON ODT 4 MG PO ONE (15:30)
--- NOTE | 2021-03-04 15:45 | NUR ---
PT HAS CO PAIN. DISCUSSED W MD. RING FOR ADMIT.
--- NOTE | 2021-03-04 15:53 | NUR ---
PT IN IMAGING
[2021-03-04] MEDS ORDERED: SODIUM CHLORIDE FLUSH 10ML SYR IVF PRN (16:00)
[2021-03-04] MEDS ORDERED: SODIUM CHLORIDE 0.9% 1,000 ML IV ONE (16:00)
[2021-03-04] MEDS ORDERED: SODIUM CHLORIDE 0.9% 1,000ML IVBOLUS ONE (16:00)
--- NOTE | 2021-03-04 16:00 | NUR ---
PT RESTING, WAITING FOR ADMIT BED.
[2021-03-04] MEDS ORDERED: hydrALAzine 20 MG/ML, 1ML IVPush PRN (16:30)
[2021-03-04] MEDS ORDERED: ENOXAPARIN 40 MG/0.4 ML SQ SCH (16:30)
[2021-03-04] MEDS ORDERED: ONDANSETRON ODT 4 MG PO PRN (16:30)
[2021-03-04] MEDS ORDERED: DOCUSATE 100 MG CAPSULE PO PRN (16:30)
[2021-03-04] MEDS ORDERED: ACETAMINOPHEN 325 MG TABLET PO PRN (16:30)
--- NOTE | 2021-03-04 17:42 | NUR ---
REPORT TO KATIANA
[2021-03-04] MEDS: SODIUM CHLORIDE 0.9% 1,000 ML IV SCH ×2 (17:54→22:07)
[2021-03-04] MEDS: PANTOPRAZOLE 40 MG IV IVPush SCH (17:54)
[2021-03-04] MEDS: ONDANSETRON 2MG/ML, 2ML IVPush PRN (18:16)
[2021-03-04 19:31] VITALS: BP 119/80
[2021-03-04] MEDS: HYDROmorphone 2 MG/ML, 1ML IVPush PRN ×2 (19:56→23:06)
[2021-03-04] MEDS ORDERED: DIPHENHYDRAMINE 25 MG CAPSULE PO ONE (21:00)
[2021-03-04] MEDS: OXYcodone IR 5MG TABLET PO PRN (21:14)
[2021-03-04] MEDS: FLECAINIDE 100MG TABLET PO SCH (22:04)
[2021-03-05 00:51] VITALS: BP 155/88
[2021-03-05] MEDS ORDERED: LORazepam 2 MG/ML, 1ML IVPush ONE (01:00)
[2021-03-05] MEDS ORDERED: morphine SULFATE 10 MG/ML, 1ML IVPush ONE (01:00)
[2021-03-05] MEDS: ONDANSETRON 2MG/ML, 2ML IVPush PRN ×2 (01:00→09:17)
[2021-03-05 01:49] LABS: ALANINE AMINOTRANSFERASE 18 U/L (12-78); ALBUMIN 3.3 g/dL (3.4-5.0); ANION GAP 6 mmol/L (5-15); CALCIUM 7.9 mg/dL (8.5-10.1); CHLORIDE 114 mmol/L (98-107)
[2021-03-05 01:53] LABS: ALKALINE PHOSPHATASE 56 U/L (45-117); BILIRUBIN,TOTAL 0.5 mg/dL (0.2-1.0); CREATININE 0.77 mg/dL (0.55-1.02); TOTAL PROTEIN 6.5 g/dL (6.4-8.2); TROPONIN I < 0.015 ng/mL (0.000-0.045)
[2021-03-05] MEDS: PANTOPRAZOLE 40 MG IV IVPush SCH ×2 (04:56→15:30)
[2021-03-05] MEDS: HYDROmorphone 2 MG/ML, 1ML IVPush PRN ×4 (04:56→21:29)
[2021-03-05 05:20] LABS: BASOPHILS % (AUTO) 1 % (0-1); EOSINOPHILS % (AUTO) 2 % (1-7); LYMPHOCYTES % (AUTO) 27 % (22-44); MEAN CORPUSCULAR HEMOGLOBIN 27.3 pg (27.0-34.8); MEAN CORPUSCULAR HGB CONC 32.8 g/dL (32.4-35.8); MEAN PLATELET VOLUME 9.5 fL (7.4-10.4); MONOCYTES % (AUTO) 7 % (2-9); NEUTROPHILS % (AUTO) 63 % (42-75); PLATELET COUNT 232 x10^3/uL (130-400); RED BLOOD COUNT 3.85 x10^6/uL (3.82-5.3); RED CELL DISTRIBUTION WIDTH 19.3 % (9.6-15.2)
[2021-03-05 05:30] LABS: CHOL/HDL RATIO 2.6; LDL/HDL RATIO 1.4 (0.5-3.0)
[2021-03-05 08:45] VITALS: BP 106/96
[2021-03-05] MEDS: HYDROCHLOROTHIAZIDE 25 MG TABLET PO SCH (09:17)
[2021-03-05] MEDS: SODIUM CHLORIDE 0.9% 1,000 ML IV SCH ×2 (09:22→15:30)
[2021-03-05] MEDS: FLECAINIDE 100MG TABLET PO SCH ×2 (09:28→21:29)
[2021-03-05 09:34] LABS: MICROSCOPIC NOT IND
[2021-03-05] MEDS: PROMETHAZINE 25 MG/ML, 1ML IM PRN (10:53)
[2021-03-05] MEDS: PROCHLORPERAZINE 5 MG/ML, 2ML IM PRN ×2 (12:43→17:01)
[2021-03-05 13:31] VITALS: BP 110/70
[2021-03-05 18:36] VITALS: BP 118/76
[2021-03-05] MEDS: SENNA/DOCUSATE TABLET PO SCH (21:29)
[2021-03-05] MEDS: POLYETHYLENE GLYCOL 17 GM PACKET PO SCH (21:29)
[2021-03-06] MEDS: SODIUM CHLORIDE 0.9% 1,000 ML IV SCH ×3 (00:30→22:07)
[2021-03-06] MEDS: HYDROmorphone 2 MG/ML, 1ML IVPush PRN ×5 (00:33→21:07)
[2021-03-06 00:38] VITALS: BP 113/71
[2021-03-06] MEDS: PANTOPRAZOLE 40 MG IV IVPush SCH ×2 (04:50→16:50)
[2021-03-06 06:10] LABS: BASOPHILS % (AUTO) 1 % (0-1); EOSINOPHILS % (AUTO) 1 % (1-7); LYMPHOCYTES % (AUTO) 22 % (22-44); MEAN CORPUSCULAR HEMOGLOBIN 27.1 pg (27.0-34.8); MEAN CORPUSCULAR HGB CONC 32.6 g/dL (32.4-35.8); MEAN PLATELET VOLUME 8.1 fL (7.4-10.4); MONOCYTES % (AUTO) 7 % (2-9); NEUTROPHILS % (AUTO) 70 % (42-75); PLATELET COUNT 195 x10^3/uL (130-400); RED BLOOD COUNT 3.59 x10^6/uL (3.82-5.3); RED CELL DISTRIBUTION WIDTH 18.4 % (9.6-15.2)
[2021-03-06 06:20] LABS: ANION GAP 5 mmol/L (5-15); CALCIUM 7.8 mg/dL (8.5-10.1); CHLORIDE 113 mmol/L (98-107); CREATININE 0.59 mg/dL (0.55-1.02)
[2021-03-06 06:23] LABS: FREE T4 (FREE THYROXINE) 1.04 ng/dL (0.76-1.46)
[2021-03-06 07:43] VITALS: BP 132/75
[2021-03-06] MEDS: HYDROCHLOROTHIAZIDE 25 MG TABLET PO SCH (08:46)
[2021-03-06] MEDS: FLECAINIDE 100MG TABLET PO SCH ×2 (08:47→20:59)
[2021-03-06] MEDS: POLYETHYLENE GLYCOL 17 GM PACKET PO SCH ×2 (08:47→21:12)
[2021-03-06] MEDS: SENNA/DOCUSATE TABLET PO SCH ×2 (08:47→20:59)
[2021-03-06] MEDS ORDERED: POTASSIUM CHLORIDE 40 MEQ in SODIUM CHLORIDE 0.9% 500 ML IV ONE (09:30)
[2021-03-06 13:03] VITALS: BP 127/74
[2021-03-06 18:45] VITALS: BP 131/73
[2021-03-06] MEDS: PROMETHAZINE 25 MG/ML, 1ML IM PRN (21:22)
[2021-03-07 02:14] VITALS: BP 107/71
[2021-03-07] MEDS: PANTOPRAZOLE 40 MG IV IVPush SCH (04:26)
[2021-03-07 05:12] LABS: ANION GAP 5 mmol/L (5-15); CALCIUM 8.1 mg/dL (8.5-10.1); CHLORIDE 111 mmol/L (98-107)
[2021-03-07] MEDS: SODIUM CHLORIDE 0.9% 1,000 ML IV SCH (06:14)
[2021-03-07 06:43] VITALS: BP 112/67
[2021-03-07] MEDS: POLYETHYLENE GLYCOL 17 GM PACKET PO SCH (09:00)
[2021-03-07] MEDS: FLECAINIDE 100MG TABLET PO SCH (09:48)
[2021-03-07] MEDS: SENNA/DOCUSATE TABLET PO SCH (09:48)
[2021-03-07] MEDS: HYDROCHLOROTHIAZIDE 25 MG TABLET PO SCH (09:48)
[2021-03-07 11:12] LABS: OCCULT BLOOD NEGATIVE (NEGATIVE)
[2021-03-07] MEDS ORDERED: LEVO50TA PO (11:56)
[2021-03-07] MEDS ORDERED: PANT40TA6 PO (11:59)
[2021-03-07 12:39] VITALS: BP 118/72
[2021-03-07] MEDS: OXYcodone IR 5MG TABLET PO PRN (13:06)
[2021-03-07] MEDS ORDERED: OXYC5TAB98 PO (14:02)
[2021-03-08] MEDS ORDERED: LEVOTHYROXINE 50 MCG TABLET PO SCH (06:00)
== END 2021-03-07 15:20 | disposition home or self-care (01) | DRG 439 ==
LOC: ED 15:27 → EDIP 15:57 → 3N 17:41 → DCLOUNGE 03-07 15:08
PROVIDERS: ADMIT Internal Medicine; ATTEND Hospitalist
DX: K85.00 Idiopathic acute pancreatitis without necrosis or infection (principal); D68.69 Other thrombophilia; I48.20 Chronic atrial fibrillation, unspecified; E70.1 Other hyperphenylalaninemias; K52.9 Noninfective gastroenteritis and colitis, unspecified; E78.5 Hyperlipidemia, unspecified; I10 Essential (primary) hypertension; G89.29 Other chronic pain; K21.9 Gastro-esophageal reflux disease without esophagitis; M54.30 Sciatica, unspecified side; K59.00 Constipation, unspecified; Z80.3 Family history of malignant neoplasm of breast; Z83.3 Family history of diabetes mellitus; Z87.11 Personal history of peptic ulcer disease; Z87.891 Personal history of nicotine dependence; Z90.49 Acquired absence of other specified parts of digestive tract; Z90.710 Acquired absence of both cervix and uterus; Z95.0 Presence of cardiac pacemaker; Z98.51 Tubal ligation status; Z88.0 Allergy status to penicillin; Z88.8 Allergy status to other drugs, medicaments and biological substances; Z88.5 Allergy status to narcotic agent
CPT/HCPCS: 36415; 74021; 80048; 80053; 80061; 81003; 82272; 83036; 83690; 83735; 84100; 84439; 84443; 84484; 85014; 85018; 85025; 93005; 96360; G0378; J1170; J2405; J2550; J3480; C9113; J0780; J2060; J7030; J7040; Q0163

== ENCOUNTER 2021-03-16 19:31 | Emergency (ER) | payer OTHER, MEDICAID ==
[~2021-03-16] VITALS: Ht 160 cm; Wt 72.7 kg
[~2021-03-16 19:31] MED LIST changes: +LEVO50TA PO; +OXYC5TAB98 PO
[2021-03-16 21:39] LABS: BASOPHILS % (AUTO) 1 % (0-1); EOSINOPHILS % (AUTO) 1 % (1-7); LYMPHOCYTES % (AUTO) 25 % (22-44); MEAN CORPUSCULAR HGB CONC 33.2 g/dL (32.4-35.8); MEAN PLATELET VOLUME 8.6 fL (7.4-10.4); MONOCYTES % (AUTO) 9 % (2-9); NEUTROPHILS % (AUTO) 64 % (42-75); PLATELET COUNT 265 x10^3/uL (130-400); RED BLOOD COUNT 4.45 x10^6/uL (3.82-5.3); RED CELL DISTRIBUTION WIDTH 18.7 % (9.6-15.2)
[2021-03-16 21:40] LABS: ALANINE AMINOTRANSFERASE 21 U/L (12-78); ALBUMIN 3.8 g/dL (3.4-5.0); ANION GAP 6 mmol/L (5-15); CHLORIDE 110 mmol/L (98-107); CREATININE 1.15 mg/dL (0.55-1.02)
[2021-03-16 22:00] LABS: BILIRUBIN,TOTAL 0.4 mg/dL (0.2-1.0); TOTAL PROTEIN 7.6 g/dL (6.4-8.2)
[2021-03-16] MEDS ORDERED: PROMETHAZINE 25 MG/ML, 1ML ONE (22:07)
--- NOTE | 2021-03-16 22:15 | NUR ---
[facility] SENT MEDICATED WITH IM PHENERGAN
[2021-03-16 22:28] LABS: MICROSCOPIC AUTO
[2021-03-16] MEDS ORDERED: PROMETHAZINE 25 MG/ML, 1ML IM ONE (22:30)
[2021-03-16 22:58] LABS: ALKALINE PHOSPHATASE 63 U/L (45-117)
[2021-03-16] MEDS ORDERED: DICYCLOMINE 20 MG TABLET PO ONE (23:00)
[2021-03-16] MEDS: ONDANSETRON ODT 4 MG PO ONE ×2 (23:00→23:09)
[2021-03-16] MEDS ORDERED: MAALOX/HYOSCYAMINE/LIDOCAINE 45 ML BTL PO ONE (23:00)
[2021-03-16] MEDS ORDERED: MAALOX/HYOSCYAMINE/LIDOCAINE 45 ML BTL ONE (23:08)
[2021-03-16] MEDS ORDERED: ONDANSETRON ODT 4 MG ONE (23:08)
[2021-03-16] MEDS ORDERED: DICYCLOMINE 20 MG TABLET ONE (23:08)
[2021-03-16 23:11] VITALS: BP 135/83
== END 2021-03-16 23:25 | disposition home or self-care (01) ==
LOC: ED 20:48
DX: R10.13 Epigastric pain (principal); R11.2 Nausea with vomiting, unspecified; M54.5 Low back pain; I10 Essential (primary) hypertension; E11.9 Type 2 diabetes mellitus without complications; E78.5 Hyperlipidemia, unspecified; K21.9 Gastro-esophageal reflux disease without esophagitis; G89.29 Other chronic pain; I48.91 Unspecified atrial fibrillation; Z90.89 Acquired absence of other organs; Z87.11 Personal history of peptic ulcer disease; Z95.0 Presence of cardiac pacemaker
CPT/HCPCS: 36415; 80053; 81001; 83690; 85025; 96372; 99283; J2550; Q0162